=== PATIENT | female | born 1970 | race Caucasian/White ===

== ENCOUNTER 2021-07-04 10:27 | Outpatient (CLI) | payer OTHER, SELFPAY ==
[2021-07-04 20:05] LABS: Basophils Percent Auto 0.5 % (0.2-1.2); Eosinophils Absolute Auto 0.2 K/mm3 (0-0.3); Eosinophils Percent Auto 2.6 % (0-4.4); Hematocrit 47.6 % (37.0-47.0); Hemoglobin 14.1 g/dL (12.0-15.0); Immature Granulocyte Absolute 0.02 K/mm3 (0.00-0.031); Immature Granulocyte Percent A 0.2 % (0-0.5); Lymphocytes Percent Auto 26.3 % (18.3-44.2); Mean Corpuscular HGB Conc 29.6 g/dl (32-36); Mean Corpuscular Hemoglobin 26.8 pg (26-34); Mean Corpuscular Volume 90.5 fl (80-100); Mean Platelet Volume 11.1 fl (7.4-10.4); Monocytes Absolute Auto 0.6 K/mm3 (0.1-0.6); Monocytes Percent Auto 6.6 % (2.6-8.5); Neutrophils Absolute Auto 5.6 K/mm3 (1.3-6.7); Neutrophils Percent Auto 63.8 % (45.5-73.1); Platelet Count Result 357 k/mm3 (150-375); Red Blood Count 5.26 M/mm3 (4.2-5.4); Red Cell Distribution Width 14.2 % (11.5-14.5); White Blood Count 8.7 K/mm3 (4.5-10.0)
[2021-07-04 20:14] LABS: Alanine Aminotransferase 24 U/L (4-35); Albumin Level 4.9 g/dL (3.5-5.1); Alkaline Phosphatase 118 U/L (38-126); Anion Gap 13 mmol/L (8-16); Aspartate Amino Transferase 28 U/L (14-36); Bilirubin,Total 0.3 mg/dL (0.2-1.3); Blood Urea Nitrogen 21 mg/dL (7-17); Calcium 10.9 mg/dL (8.4-10.2); Carbon Dioxide 23 mmol/L (22-30); Chloride 102 mmol/L (98-107); Cholesterol 286 mg/dL (0-200); Estimated Glomerular Filt Rate > 60; Glucose 157 mg/dL (65-110); HDL Direct 67 mg/dL; Potassium 4.3 mmol/L (3.4-5.0); Sodium 138 mmol/L (137-145); Triglycerides 240 mg/dL (<150)
[2021-07-04 20:25] LABS: Hemoglobin A1C 9.4 % (<5.7); LDL Cholesterol Direct 173 mg/dL
[2021-07-04 20:30] LABS: Free T4 Free Thyroxine 0.85 ng/mL (0.78-2.19)
[2021-07-04 20:59] LABS: Platelet Estimate Adequate (Adequate); Poikilocytosis 1+ (NORMAL)
[2021-07-10 06:29] LABS: Triiodothyronine T3 Free 2.5 pg/mL (2.3-4.2)
== END 2021-07-04 10:28 | disposition home or self-care (01) ==
LOC: ANHBWCLAB 10:29
PROVIDERS: PCP Family Medicine; Visit Provider Family Medicine
DX: Z00.00 Encounter for general adult medical examination without abnormal findings (principal); E07.9 Disorder of thyroid, unspecified; Z12.89 Encounter for screening for malignant neoplasm of other sites
CPT/HCPCS: 36415; 80053; 80061; 83036; 84439; 84443; 84481; 85025

== ENCOUNTER 2021-08-07 10:22 | Outpatient (CLI) | payer OTHER, SELFPAY ==
[2021-08-07 20:21] LABS: Anion Gap 12 mmol/L (8-16); Blood Urea Nitrogen 17 mg/dL (7-17); Calcium 10.8 mg/dL (8.4-10.2); Carbon Dioxide 22 mmol/L (22-30); Chloride 107 mmol/L (98-107); Estimated Glomerular Filt Rate > 60; Glucose 129 mg/dL (65-110); Potassium 4.7 mmol/L (3.4-5.0); Sodium 141 mmol/L (137-145)
[2021-08-07 20:29] LABS: Hemoglobin A1C 7.8 % (<5.7)
[2021-08-16 08:55] LABS: Parathyroid Hormone Related Pr 13
== END 2021-08-07 10:23 | disposition home or self-care (01) ==
LOC: ANHBWCLAB 10:23
PROVIDERS: PCP Family Medicine; Visit Provider Family Medicine
DX: E83.52 Hypercalcemia (principal)
CPT/HCPCS: 36415; 80048; 83036; 83519

== ENCOUNTER 2021-08-30 14:41 | Outpatient (CLI) | payer OTHER, SELFPAY ==
[2021-08-30 19:58] LABS: Anion Gap 10 mmol/L (8-16); Blood Urea Nitrogen 21 mg/dL (7-17); Calcium 11.1 mg/dL (8.4-10.2); Carbon Dioxide 23 mmol/L (22-30); Chloride 109 mmol/L (98-107); Estimated Glomerular Filt Rate > 60; Glucose 144 mg/dL (65-110); Potassium 4.3 mmol/L (3.4-5.0); Sodium 142 mmol/L (137-145)
== END 2021-08-30 14:42 | disposition home or self-care (01) ==
PROVIDERS: PCP Family Medicine; Visit Provider Family Medicine
DX: E83.52 Hypercalcemia (principal)
CPT/HCPCS: 36415; 80048; 83036

== ENCOUNTER 2022-01-07 15:28 | Emergency (ER) | payer OTHER, SELFPAY ==
[2022-01-07 15:42] VITALS: BP 132/81; PULSE 92; RESP 17; TEMP 37.3; O2SAT 99
--- NOTE | 2022-01-07 16:01 | ED.ABDPAIN ---
HPI - Abdominal Pain General Chief Complaint: Abdominal Pain Stated Complaint: abd pain Time Seen by Provider: 01/07/22 15:49 Source: patient Mode of arrival: ambulatory Limitations: no limitations History of Present Illness HPI narrative: Patient is a 51-year-old female complaining of epigastric pain, burning, was 9 out of 10, now resolved started approximately 1 hour prior to arrival. Patient denies any chest pain, shortness of breath, nausea, vomiting, diaphoresis, fever or chills. Related Data Home Medications Medication Instructions Recorded Confirmed acyclovir 400 mg tablet 400 mg PO DAILY 07/04/21 10/26/21 drospirenone (contraceptive) 4 mg 4 mg PO DAILY 07/04/21 10/26/21 (28) tablet Allergies Allergy/AdvReac Type Severity Reaction Status Date / Time metformin AdvReac Gastrointestinal Verified 01/07/22 16:31 Upset Review of Systems Review of Systems: All systems reviewed & are unremarkable except as noted in HPI and below Constitutional: Constitutional: Denies body ache(s), Denies chills, Denies excessive sweating, Denies fatigue, Denies fever(s), Denies headache(s), Denies lethargy, Denies malaise, Denies weakness and Denies weight loss Eyes: Eyes: Denies blurry vision, Denies change in vision and Denies loss of vision ENT: Denies dizziness, Denies ear discharge, Denies headache(s), Denies lip swelling, Denies epistaxis, Denies nasal congestion, Denies neck pain, Denies throat swelling and Denies tongue swelling Cardiovascular: Cardiovascular: Denies chest pain, Denies chest pain at rest, Denies chest pain with activity, Denies diaphoresis, Denies rapid heart rate, Denies edema, Denies irregular heart rhythm, Denies lightheadedness, Denies palpitations, Denies dyspnea and Denies dyspnea on exertion Respiratory: Respiratory: Denies chest congestion, Denies cough, Denies hemoptysis, Denies dyspnea and Denies dyspnea on exertion Gastrointestinal: Gastrointestinal: Denies melena, Denies hematochezia, Denies diarrhea, Denies nausea, Denies vomiting and Denies hematemesis Musculoskeletal: Musculoskeletal: Denies abnormal gait, Denies deformity, Denies joint swelling, Denies limited range of motion, Denies neck pain and Denies numbness Neurologic: Denies Abnormal speech present, Denies abnormal gait, Denies confusion, Denies dizziness, Denies headache(s), Denies focal weakness, Denies loss of vision, Denies numbness, Denies Other visual disturbances, Denies Sensory deficit (Neuro) and Denies weakness Psychiatric: Psychiatric: Denies confusion, Denies depression, Denies auditory hallucinations, Denies homicidal ideation and Denies suicidal ideation Endocrine: Endocrine: Denies cold intolerance, Denies excessive sweating, Denies fatigue, Denies heat intolerance and Denies palpitations Hematologic/Lymphatic: Hematologic/Lymphatic: Denies easy bleeding and Denies easy bruising Allergic/Immunologic: Allergic/Immunologic: Denies lip swelling, Denies throat swelling and Denies tongue swelling PMFSH Past Medical History Medical History Diabetes Hyperlipidemia Thyroid disorder Family History Family History Father Hypertension Mother Thyroid disorder Sibling Anxiety Depression Other Anxiety Depression Grandparent Cancer Grandparent Cancer Social History Social History Smoking packs per day: 2 Smoking cigarettes per day: 40.0 Years smoked: 25 Smoking pack-years: 50.00 Smoking status: Former smoker Tobacco type: e-cigarettes/vaping Smoking end date: 11/24/10 Alcohol intake: never Substance use type: does not use Exam Const: General: cooperative, healthy appearing, comfortable, no acute distress, well developed, alert and awake; No confusion Orientation/consciousness: oriented to person, oriented to place, aleksandra
[2022-01-07] MEDS: FAMOTIDINE 20 MG TABLET 40 MG PO (16:32)
[2022-01-07] MEDS: BELLADONNA ALK/PHENOB ELIX 10 ML, MAG HYDROX/ALUMINUM HYD/SIMETH 30 ML, LIDOCAINE HCL 2... PO (16:33)
[2022-01-07 16:50] LABS: Basophils Percent Auto 0.3 % (0.2-1.2); Eosinophils Absolute Auto 0.2 K/mm3 (0-0.3); Eosinophils Percent Auto 2.2 % (0-4.4); Hematocrit 41.8 % (37.0-47.0); Hemoglobin 13.6 g/dL (12.0-15.0); Immature Granulocyte Absolute 0.02 K/mm3 (0.00-0.031); Immature Granulocyte Percent A 0.3 % (0-0.5); Lymphocytes Absolute Auto 1.81 K/mm3 (0.9-3.2); Mean Corpuscular HGB Conc 32.5 g/dl (32-36); Mean Corpuscular Hemoglobin 27.6 pg (26-34); Mean Platelet Volume 10.1 fl (7.4-10.4); Monocytes Absolute Auto 0.6 K/mm3 (0.1-0.6); Monocytes Percent Auto 7.7 % (2.6-8.5); Neutrophils Absolute Auto 4.7 K/mm3 (1.3-6.7); Neutrophils Percent Auto 64.5 % (45.5-73.1); Platelet Count Result 334 k/mm3 (150-375); Red Blood Count 4.92 M/mm3 (4.2-5.4); Red Cell Distribution Width 13.5 % (11.5-14.5); White Blood Count 7.2 K/mm3 (4.5-10.0)
--- NOTE | 2022-01-07 16:57 | ECG_ITS ---
Measurements Intervals [place] Rate: 68 P: 31 VT: 161 QRS: 0 QRSD: 75 T: 40 QT: 394 QTc: 420 Interpretive Statements SINUS RHYTHM CANNOT RULE OUT SEPTAL INFARCT, AGE INDETERMINATE ABNORMAL ECG Electronically Signed On 01-07-2022 20:14:25 PARA EDUCATOR by Evens Alexander D.O.
[2022-01-07 17:10] LABS: Alanine Aminotransferase 84 U/L (4-35); Albumin Level 4.4 g/dL (3.5-5.1); Alkaline Phosphatase 128 U/L (38-126); Anion Gap 11 mmol/L (8-16); Aspartate Amino Transferase 141 U/L (14-36); Bilirubin,Total 0.3 mg/dL (0.2-1.3); Blood Urea Nitrogen 14 mg/dL (7-17); Calcium 9.5 mg/dL (8.4-10.2); Carbon Dioxide 21 mmol/L (22-30); Chloride 110 mmol/L (98-107); Estimated CRCL calculation 68 ml/min; Estimated Glomerular Filt Rate > 60; Glucose 128 mg/dL (65-110); Lipase 121 U/L (23-300); Potassium 3.8 mmol/L (3.4-5.0); Sodium 142 mmol/L (137-145)
== END 2022-01-07 17:55 | disposition home or self-care (01) ==
LOC: ANHED 16:55
PROVIDERS: Emergency Provider Emergency Medicine; PCP Family Medicine
DX: K29.00 Acute gastritis without bleeding (principal); E11.9 Type 2 diabetes mellitus without complications; E78.5 Hyperlipidemia, unspecified; E07.9 Disorder of thyroid, unspecified; Z87.891 Personal history of nicotine dependence; R94.31 Abnormal electrocardiogram [ECG] [EKG]; Z79.899 Other long term (current) drug therapy
CPT/HCPCS: 36415; 80053; 81025; 83690; 85025; 93005; 99283; A9270

== ENCOUNTER 2022-01-25 13:49 | Outpatient (CLI) | payer OTHER, SELFPAY ==
[2022-01-25 19:09] LABS: Alanine Aminotransferase 34 U/L (4-35); Albumin Level 4.4 g/dL (3.5-5.1); Alkaline Phosphatase 113 U/L (38-126); Anion Gap 11 mmol/L (8-16); Aspartate Amino Transferase 28 U/L (14-36); Bilirubin,Total 0.3 mg/dL (0.2-1.3); Blood Urea Nitrogen 20 mg/dL (7-17); Calcium 9.9 mg/dL (8.4-10.2); Carbon Dioxide 23 mmol/L (22-30); Chloride 106 mmol/L (98-107); Estimated Glomerular Filt Rate > 60; Glucose 164 mg/dL (65-110); Potassium 4.7 mmol/L (3.4-5.0); Sodium 140 mmol/L (137-145)
[2022-01-25 19:14] LABS: Hemoglobin A1C 6.2 % (<5.7)
== END 2022-01-25 13:50 | disposition home or self-care (01) ==
LOC: ANHBWCLAB 13:50
PROVIDERS: PCP Family Medicine; Visit Provider Family Medicine
DX: E11.9 Type 2 diabetes mellitus without complications (principal); E83.52 Hypercalcemia; R74.8 Abnormal levels of other serum enzymes
CPT/HCPCS: 36415; 80048; 80076; 83036

== ENCOUNTER 2022-01-30 15:00 | Outpatient (CLI) | payer OTHER, SELFPAY ==
[2022-02-02 21:41] LABS: H pylori Ag Stool Not Detected (Not Detected)
== END 2022-01-30 15:01 | disposition home or self-care (01) ==
PROVIDERS: PCP Family Medicine; Visit Provider Family Medicine
DX: K29.00 Acute gastritis without bleeding (principal); R14.0 Abdominal distension (gaseous)
CPT/HCPCS: 87338

== ENCOUNTER 2022-04-12 07:49 | Outpatient (CLI) | payer OTHER, SELFPAY ==
--- NOTE | 2022-04-23 10:18 | WPDSLEEPSTUD ---
Sleep Study Date of Study: 04/12/22 Ordering Provider: ALEXIA Mcclure Interpreting Physician: Jessi Jo MD Sleep Study Type: CPAP Titration Height: 1.52 m Weight: 61.689 kg Body Mass Index: 26.5 Neck Circumference (inches): 12.5 [place]: 9 Reason for Sleep Study * 07/31/21 - HST through [facility] - mild, positional sleep apnea with RDI of 7.4/hr. Trial APAP or MAD recommended. She has been on APAP Without adequate response, is now here for CPAP Titration. Sleep History Le Mas is a 52 year old female with excessive daytime sleepiness. She has a history of sleep apnea diagnosed on a home sleep test on July 31, 2021 with an AHI of 7.4. She was treated with auto PAP 5-20 cm without good response. She was switched to a Christal CPAP, still had extremely low compliance due to inability to tolerate the pressure. She preferred the nasal pillows however the pressure was too high. She is here for a CPAP titration to get an optimal pressure. She has a very fragmented sleep schedule that likely contributes to her sleep disturbances. 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 She then starts her day but feels tired all day. Takes a nap before noon for at least an hour, and often takes a 2nd nap around 3pm, also at least an hour. Denies morning headaches or nausea. Denies night time SOB/cough. Denies dozing off while driving, while in public or while talking to someone. Denies loss of muscle tone with strong emotion. Denies daytime SOB, coughing, wheezing, chest pain or extremity swelling. She reports an [place] score of 3 today. [facility] Past Medical History Medical History FHx: cholecystectomy GERD (gastroesophageal reflux disease) Hyperlipidemia TERENCE (obstructive sleep apnea) Thyroid disorder Type 2 diabetes mellitus Family History Family History Father Hypertension Mother Thyroid disorder Sibling Anxiety Depression Other Anxiety Depression Grandparent Cancer Grandparent Cancer Social History Social History Smoking packs per day: 2 Smoking cigarettes per day: 40.0 Years smoked: 25 Smoking pack-years: 50.00 Smoking status: Current some day smoker (vapes) Tobacco type: e-cigarettes/vaping Smoking end date: 11/24/10 Alcohol intake: never Substance use type: does not use Medications Home Medications Medication Instructions Recorded Confirmed Type blood sugar diagnostic (OneTouch #100 ea 07/04/21 03/25/22 Rx Ultra Test) fenofibrate 160 mg tablet 160 mg PO DAILY #90 tabs 07/04/21 03/25/22 Rx lancets 30 gauge (OneTouch Delica #100 ea 07/04/21 03/25/22 Rx Lancets) drospirenone (contraceptive) 4 mg 4 mg PO DAILY #28 tabs 01/08/22 03/25/22 Rx (28) tablet (Slynd) liraglutide 0.6 mg/0.1 mL (18 mg/3 1.2 mg (0.2 mL) subcut DAILY #9 mL 02/01/22 03/25/22 Rx mL) subcutaneous pen injector (Victoza 3-Chris) dicyclomine 10 mg capsule 10 mg PO BID PRN abdominal 02/05/22 03/25/22 Rx cramping #30 caps pen needle, diabetic 32 gauge x #100 ea 02/05/22 03/25/22 Rx 1/4 (Novofine 32) eszopiclone 2 mg tablet (Lunesta) 2 mg PO QHS #1 tablet 03/06/22 Rx pantoprazole 40 mg tablet,delayed 40 mg PO QAM 8 weeks #56 tabs 03/25/22 03/25/22 Rx release Sleep Procedure This test was performed using the [employer] SleepiOpener multiple channel system including EOG, EEG, submental EMG, EKG, nasal and oral airflow using thermistors and nasal pressure sensors, chest and abdominal belts for body position data, and pulse oximetry. Video monitoring was also performed. The study was sc
[2022-04-23 13:04] VITALS: BMI 26.5
== END 2022-04-13 06:53 | disposition home or self-care (01) ==
LOC: ANHCSM 07:50
PROVIDERS: PCP Family Medicine; Visit Provider Physician Assistant
DX: G47.33 Obstructive sleep apnea (adult) (pediatric) (principal)
CPT/HCPCS: 95811

== ENCOUNTER 2022-07-02 12:09 | Outpatient (CLI) | payer OTHER, SELFPAY ==
[2022-07-02 19:15] LABS: Alanine Aminotransferase 36 U/L (6-35); Albumin Level 4.9 g/dL (3.5-5.1); Alkaline Phosphatase 106 U/L (38-126); Aspartate Amino Transferase 57 U/L (14-36); Bilirubin,Total 0.4 mg/dL (0.2-1.3)
[2022-07-02 19:55] LABS: Creatinine Urine 144.1 mg/dL
[2022-07-02 20:02] LABS: MALB Creatinine Ratio 12.4 mg/g (0-30); Microalbumin Urine Random 17.9 mg/L (0-16.7)
[2022-07-02 20:24] LABS: Vitamin D 25 Hydroxy 73.5 ng/mL
[2022-07-02 20:34] LABS: Hemoglobin A1C 6.8 % (<5.7)
== END 2022-07-02 12:10 | disposition home or self-care (01) ==
LOC: ANHBWCLAB 12:10
PROVIDERS: PCP Family Medicine; Visit Provider Family Medicine
DX: R74.8 Abnormal levels of other serum enzymes (principal); E55.9 Vitamin D deficiency, unspecified; E11.9 Type 2 diabetes mellitus without complications
CPT/HCPCS: 36415; 80076; 82043; 82306; 83036

== ENCOUNTER 2022-08-27 11:24 | Outpatient (CLI) | payer OTHER, SELFPAY ==
[2022-08-27 12:17] LABS: Anion Gap 11 mmol/L (8-16); Blood Urea Nitrogen 16 mg/dL (7-17); Calcium 9.4 mg/dL (8.4-10.2); Carbon Dioxide 26 mmol/L (22-30); Chloride 105 mmol/L (98-107); Estimated Glomerular Filt Rate > 60; Glucose 178 mg/dL (65-110); Potassium 3.9 mmol/L (3.4-5.0); Sodium 142 mmol/L (137-145)
== END 2022-08-27 11:25 | disposition home or self-care (01) ==
LOC: ANHSURGERY 11:29
PROVIDERS: Anesthesiology; PCP Family Medicine; Visit Provider Otolaryngology
DX: Z01.818 Encounter for other preprocedural examination (principal); E11.9 Type 2 diabetes mellitus without complications
CPT/HCPCS: 36415; 80048

== ENCOUNTER 2022-08-30 00:50 | Day surgery (SDC) | payer OTHER, SELFPAY ==
[2022-08-22 16:37] VITALS: BMI 26.7
--- NOTE | 2022-08-22 17:11 | PC.NURSE ---
Report to the Outpatient Waiting Room, entrance under the green pavilion located off [facility], at time 1030 on date 08/30/22. OR Time: 1230. Time changes happen often and if your time is changed the preop area will call you the afternoon before. - You and your visitor will be asked to self-screen and do not enter if you have any COVID symptoms. - Only one visitor and NO children visitors are allowed at this time. - The patient visitor is requested to leave or wait in car when not with patient due to restrictions. - A mask is required within the hospital. Patients may have clear liquids (water, carbonated beverages, clear teas, apple juice) until 3 hours prior to surgery with a maximum of 20 ounces 0930. - No food from midnight until time of surgery - Infants may have breast milk until 4 hours before surgery, infant formula 6 hours prior to surgery. - Children will be allowed to drink immediately following surgery. If applicable, please bring a bottle or sippy cup to assist with drinking. Juice, water, soda, and popsicles are readily available. For infants on formula, please bring formula the day of surgery. Pacifiers are allowed. Take the following medications with a SIP of water the morning of surgery: acyclovir, fenofibrate, flonase Medications to discontinue per physician lisinopril, pantoprazole Date to take last dose 08/29/22 Please no make-up, nail romansh, hairspray, perfume, deodorant, or body powder the day of surgery. No jewelry (including any body piercings) or valuables the day of surgery, leave them at home. Please take a shower or bath the night before, or the morning of, surgery with an antibacterial soap. Wear comfortable, loose fitting clothing. Children are encouraged to wear pajamas. - Jewelry must be removed prior to entering the operating room. Rings and piercings that are not removed may be cut off. - The hospital will not accept responsibility for valuables. - Please leave all valuables, including medications, at home the day of surgery. If you are going home after surgery, a licensed corrugated fastener driver must drive you home. - NO public transportation without another adult. - We recommend that an adult stay with you for 24 hours following discharge. - We also recommend that you do not drive, make important decision, drink alcoholic beverages, or take any drugs that were not prescribed by your health care provider for at least 24 hours after your discharge time. For Pediatric surgeries, we recommend two adults accompany the child home (only one inside the building at this time). Follow any additional instructions given to you from your surgeon. If you or anyone in your household have experienced Covid symptoms in the past week, please notify your surgeon or the nurse liaison at the phone number below for possible testing. Telephone instructions given to Le Mas and asked if any additional questions and then verbalized understanding. Patient advised to call surgeon office or pre surgery nurse liaison [phone] if any additional questions.
--- NOTE | 2022-08-29 19:28 | PM.IMHP ---
H&P: HPI History of Present Illness Date/Time: 08/29/22 19:28 Chief Complaint: Nasal obstruction nasal congestion nasal scar tissue turbinate hypertrophy oral cavity lesion [facility] Past Medical History Medical History FHx: cholecystectomy GERD (gastroesophageal reflux disease) Hyperlipidemia TERENCE (obstructive sleep apnea) Thyroid disorder Type 2 diabetes mellitus Family History Family History Father Hypertension Cancer Mother Thyroid disorder Sibling Anxiety Depression Other Anxiety Depression Grandparent Cancer Grandparent Cancer Other Depression Social History Social History Smoking packs per day: 2 Smoking cigarettes per day: 40.0 Years smoked: 30 Smoking pack-years: 60.00 Smoking status: Former smoker Tobacco type: e-cigarettes/vaping Smoking end date: 11/24/13 Alcohol intake: never Substance use type: does not use Last use: 2013 Spiritual care concerns: No Meds Home Medications and Allergies Home Medications Medication Instructions Recorded Confirmed Type blood sugar diagnostic (RoomtagTouch #100 ea 07/04/21 08/22/22 Rx Ultra Test strips) lancets 30 gauge (RoomtagTouch Delica #100 ea 07/04/21 08/22/22 Rx Lancets) fenofibrate 160 mg tablet 160 mg PO DAILY #90 tabs 07/01/22 08/22/22 Rx lisinopril 2.5 mg tablet 2.5 mg PO DAILY #90 tabs 08/04/22 08/22/22 Rx acyclovir 400 mg tablet 400 mg PO DAILY 08/07/22 08/22/22 History fluticasone propionate 50 2 spray intranasal BID #16 mL 08/07/22 08/22/22 Rx mcg/actuation nasal spray,suspension (Flonase Allergy Relief) pantoprazole 20 mg tablet,delayed 20 mg PO DAILY 08/22/22 08/22/22 History release (Protonix) dulaglutide 1.5 mg/0.5 mL 1.5 mg (0.5 mL) subcut WEEKLY #2 mL 08/27/22 Rx subcutaneous pen injector (Trulicity) Allergies Allergy/AdvReac Type Severity Reaction Status Date / Time No Known Allergies Allergy Verified 08/22/22 16:33 Exam Narrative: abnormal appearing reny palatini us nasal scar tissue turbinate hypertrophy Assessment and Plan Assessment and plan (1) Rhinitis medicamentosa: Code(s): J31.0 - Chronic rhinitis; T48.5X5A - Adverse effect of other hguq-ldgexi-wicm drugs, initial encounter Status: Acute Assessment and Plan: plan operating room nasal endoscopy lysis of adhesions turbinate outfracture will need splints / sinus stray/endoscope. Biopsy of oral cavity lesion will need soft tissue tray /mouthgag. 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
[2022-08-30] VITALS (9 sets, daily range): BP systolic 120–153; BP diastolic 66–84; PULSE 60–79; RESP 12–20; TEMP 36.4–37; O2SAT 96–100
--- NOTE | 2022-08-30 07:19 | WPDHPUPDATE1 ---
History and Physical Update Update Date/Time: 08/30/22 07:19 History and Physical has been reviewed, including an updated exam of the patient. There are NO changes in the patient's condition. Risks, benefits, and alternatives have been discussed and questions answered. Patient agrees to proceed with procedure.
[2022-08-30] MEDS: ACETAMINOPHEN 500 MG TABLET 1000 MG PO (11:22)
[2022-08-30] MEDS: LACTATED RINGERS 1,000 ML 30 ML IV CONT (11:30)
[2022-08-30 11:34] LABS: Glucose Point of Care 111 mg/dl (65-105)
--- NOTE | 2022-08-30 11:37 | WPDANESEPPF ---
Anes - Initial Pre Proc Eval Procedure: Operation Date: 08/30/22 12:30 Proposed Procedures p Bilateral Nasal Endoscopy with Lysis of Nasal Adhesions, Bilateral Inferior Turbinectomy with Outfracture - Melvin Baez MD Date/Time: 08/30/22 11:37 Surgeon: Melvin Baez MD Pre Op Diagnosis: turbinate hypertrophy, oral cavity lesion Patient Data Age: 52 Gender: F Height: 1.52 m Weight: 60.95 kg Last Vital Signs Temp 36.4 C 08/30/22 10:39 Pulse 79 08/30/22 10:39 Resp 20 08/30/22 10:39 BP 122/66 08/30/22 10:39 Pulse Ox 100 08/30/22 10:39 O2 Del Method Room Air 08/30/22 10:39 Allergies Allergy/AdvReac Type Severity Reaction Status Date / Time No Known Allergies Allergy Verified 08/30/22 11:15 Home Medications Medication Instructions Recorded Confirmed Type blood sugar diagnostic ([employer] OrganizationTouch #100 ea 07/04/21 08/22/22 Rx Ultra Test strips) lancets 30 gauge (OneTouch Delica #100 ea 07/04/21 08/22/22 Rx Lancets) fenofibrate 160 mg tablet 160 mg PO DAILY #90 tabs 07/01/22 08/22/22 Rx lisinopril 2.5 mg tablet 2.5 mg PO DAILY #90 tabs 08/04/22 08/22/22 Rx acyclovir 400 mg tablet 400 mg PO DAILY 08/07/22 08/22/22 History fluticasone propionate 50 2 spray intranasal BID #16 mL 08/07/22 08/22/22 Rx mcg/actuation nasal spray,suspension (Flonase Allergy Relief) pantoprazole 20 mg tablet,delayed 20 mg PO DAILY 08/22/22 08/22/22 History release (Protonix) dulaglutide 1.5 mg/0.5 mL 1.5 mg (0.5 mL) subcut WEEKLY #2 mL 08/27/22 08/30/22 Rx subcutaneous pen injector (Trulicity) Laboratory Tests 08/30/22 11:31 POC Capillary Glucose 111 mg/dl H mg/dl (65-105) Patient hx anesthesia problems: post op nausea/vomiting Family hx anesthesia problems: none Results Review: All pre-operative results and documents have been reviewed as part of the pre-operative evaluation. [facility] Past Medical History Medical History FHx: cholecystectomy GERD (gastroesophageal reflux disease) Hyperlipidemia TERENCE (obstructive sleep apnea) Thyroid disorder Type 2 diabetes mellitus Family History Family History Father Hypertension Cancer Mother Thyroid disorder Sibling Anxiety Depression Other Anxiety Depression Grandparent Cancer Grandparent Cancer Other Depression Social History Social History Smoking packs per day: 2 Smoking cigarettes per day: 40.0 Years smoked: 30 Smoking pack-years: 60.00 Smoking status: Former smoker Tobacco type: e-cigarettes/vaping Smoking end date: 11/24/13 Alcohol intake: never Substance use type: does not use Last use: 2013 Living arrangements: with family Spiritual care concerns: No Anes - Eval Final PreProcedure Day of Procedure 08/30/22 11:37 Patient weight: overweight Heart: regular rate and rhythm Lungs: decreased breath sounds Airway: Mallampati scale class III Neurological: alert and oriented Last oral intake: >/= 8 hours ASA classification: III Emergent: no Anesthetic plan: proceed Anesthesia type and monitoring: general ETT and standard monitoring Results Review: All pre-operative results and documents have been reviewed as part of the pre-operative evaluation. Informed Consent: The patient's anesthetic plan and its attendant risks and benefits were discussed with the patient/family/POA. Questions were solicited and answers provided to the satisfaction of the patient/family/POA.
[2022-08-30] MEDS: ceFAZolin 2 GM/D5W 50 ML 2 GM/50 ML BAG IVPB (12:57)
[2022-08-30] MEDS: OXYMETAZOLINE HCL 0.05% NAS 15 ML BTL (*BKC) 1 SPRAY NASAL (13:20)
[2022-08-30] MEDS: MUPIROCIN 2% OINT 22 GM TUBE 1 APPLIC TOPICAL (13:28)
[2022-08-30 13:54] LABS: Glucose Point of Care 112 mg/dl (65-105)
[2022-08-30] MEDS: fentaNYL CITRATE INJ (*CRX) 100 MCG/2 ML VIAL 25 MCG IV PUSH ×4 (14:02→14:27)
[2022-08-30] MEDS: SCOPOLAMINE 1.5 MG PATCH TRANSDERM (14:35)
--- NOTE | 2022-08-30 15:42 | W.PM.PROC2 ---
Procedure Note - Detailed Date of Procedure 08/30/22 Pre-op Diagnosis turbinate hypertrophy, oral cavity lesion , nasal cavity scar tissue, septal deviation Post-op Diagnosis Same Procedure Performed endoscopic nasal endoscopy, endoscopic lysis of adhesions, inferior turbinate submucosal resection with outfracture, biopsy all cap Surgeon Melvin Baez MD Anesthesia General Indications see above Findings oral cavity lesion likely torus palatinus mucosa overlying biopsied normal appearing otherwise, significant scar tissue in the right nasal passage completely open turbinate well reduced there is right septal deviation which is fairly obstructive left-sided moderate scar tissue removed turbinate free the turbinates are free bilaterally Description of Procedure patient identified consent verified. Patient brought operating time-out performed. General anesthesia induced endotracheal tube secured the. Patient prepped draped rotated Afrin-soaked pledgets placed around the scar tissue in the nasal cavity 2nd time-out performed. Oral cavity opened using side-biting mouth gag lesion examined. Appears to be torus palatinus. Mucosa overlying small amount about 3 x 1 mm was removed for pathologic analysis. Bovie suction electrocautery at a setting of utilized to stop scant bleeding. Endoscope then utilized to the bilateral nasal passages with findings listed above. All the scar tissue was lysed with a [place]. Turbinates were outfractured and reduced in the submucosal plane large obstructing mulberry tips were cauterized. Simpson splints were then placed the left being trimmed and sutured anteriorly using 3-0 mattressed nylon suture. Blood loss about 10 cc. I performed all dictated portions of the procedure. There were no complications. Care the patient given Anesthesiology. Patient taken to PACU Estimated Blood Loss 10 Drains No Packing No Pathology Yes Complications No immediate complications Condition Stable Disposition PACU
== END 2022-08-30 15:32 | disposition home or self-care (01) ==
PROVIDERS: PCP Family Medicine; Visit Provider Otolaryngology
PROC: (CPT 30140; principal; 2022-08-30 12:30)
PROC: (CPT 40810; 2022-08-30 12:30)
DX: R09.81 Nasal congestion (principal); J34.3 Hypertrophy of nasal turbinates; K13.70 Unspecified lesions of oral mucosa; K21.9 Gastro-esophageal reflux disease without esophagitis; E78.5 Hyperlipidemia, unspecified; G47.33 Obstructive sleep apnea (adult) (pediatric); E11.9 Type 2 diabetes mellitus without complications; Z87.891 Personal history of nicotine dependence; M27.0 Developmental disorders of jaws; J34.89 Other specified disorders of nose and nasal sinuses; J31.0 Chronic rhinitis
CPT/HCPCS: 30140; 31237; 82948; 88304; A9270; J0330; J0690; J1100; J2250; J2405; J2704; J3010; J7120

== ENCOUNTER 2022-10-21 10:28 | Outpatient (CLI) | payer OTHER, SELFPAY ==
--- NOTE | ~2022-10-21 | MM_ITS ---
EXAMINATION: MM screening kaylyn BI w jazmyn HISTORY: Screening mammogram TECHNIQUE: Craniocaudal and mediolateral oblique 3-D tomosynthesis images were obtained and synthetic 2-D images were generated. CAD analysis was submitted and interpreted. COMPARISON: No prior mammogram is available for comparison at this institution. BREAST PARENCHYMAL COMPOSITION: There are scattered areas of fibroglandular density. FINDINGS: RIGHT BREAST: There is a mass in the middle third of the central breast. LEFT BREAST: No suspicious mass, calcification, or architectural distortion are identified to suggest malignancy. IMPRESSION: 1. Right breast mass which may represent the patient's baseline however no comparison is currently av ailable. 2. Comparison with prior mammograms is necessary. BI-RADS Category 0: Incomplete: Needs comparison with prior mammograms. Reviewed, dictated and finalized at location A. MILL OPERATOR IMPRESSION: 1. Right breast mass which may represent the patient's baseline however no comp arison is currently available. 2. Comparison with prior mammograms is necessary. BI-RADS Category 0: Incomplete: Needs comparison with prior mammograms.
== END 2022-10-21 10:29 | disposition home or self-care (01) ==
PROVIDERS: PCP Family Medicine; Visit Provider Nurse Practitioner
DX: Z12.31 Encounter for screening mammogram for malignant neoplasm of breast (principal); N63.41 Unspecified lump in right breast, subareolar
CPT/HCPCS: 77063; 77067

== ENCOUNTER 2023-01-14 13:19 | Outpatient (CLI) | payer OTHER, SELFPAY ==
[2023-01-14 18:51] LABS: Hematocrit 42.9 % (37.0-47.0); Hemoglobin 13.6 g/dL (12.0-15.0); Mean Corpuscular HGB Conc 31.7 g/dl (32-36); Mean Corpuscular Hemoglobin 26.6 pg (26-34); Mean Corpuscular Volume 83.8 fl (80-100); Mean Platelet Volume 10.5 fl (7.4-10.4); Platelet Count Result 409 k/mm3 (150-375); Red Blood Count 5.12 M/mm3 (4.2-5.4); Red Cell Distribution Width 13.8 % (11.5-14.5); White Blood Count 6.9 K/mm3 (4.5-10.0)
[2023-01-14 18:58] LABS: Hemoglobin A1C 6.8 % (<5.7)
[2023-01-14 19:31] LABS: Vitamin D 25 Hydroxy 41.2 ng/mL
[2023-01-14 19:37] LABS: Alanine Aminotransferase 37 U/L (6-35); Albumin Level 4.8 g/dL (3.5-5.1); Alkaline Phosphatase 99 U/L (38-126); Aspartate Amino Transferase 44 U/L (14-36); Bilirubin,Total 0.5 mg/dL (0.2-1.3); Cholesterol 186 mg/dL (0-200); HDL Direct 43 mg/dL; Triglycerides 187 mg/dL (<150)
[2023-01-14 19:48] LABS: LDL Cholesterol Direct 106 mg/dL
[2023-01-14 19:52] LABS: Hepatitis B Surface Antigen Negative (Negative)
[2023-01-14 19:57] LABS: HAV RESULT Negative (Negative); Hepatitis B Core IgM Result Negative (Negative)
[2023-01-14 20:09] LABS: Hepatitis C Virus Antibody Negative (Negative)
[2023-01-14 20:35] LABS: Creatinine Urine 107.6 mg/dL
[2023-01-14 20:43] LABS: MALB Creatinine Ratio 12.1 mg/g (0-30)
== END 2023-01-14 13:20 | disposition home or self-care (01) ==
PROVIDERS: PCP Family Medicine; Visit Provider Family Medicine
DX: E55.9 Vitamin D deficiency, unspecified (principal); G47.33 Obstructive sleep apnea (adult) (pediatric); E11.9 Type 2 diabetes mellitus without complications; R53.83 Other fatigue; R74.8 Abnormal levels of other serum enzymes
CPT/HCPCS: 36415; 80061; 80074; 80076; 82043; 82306; 83036; 85027

== ENCOUNTER 2023-07-15 12:02 | Outpatient (CLI) | payer OTHER, SELFPAY ==
[2023-07-15 19:05] LABS: Hematocrit 45.9 % (37.0-47.0); Hemoglobin 14.1 g/dL (12.0-15.0); Mean Corpuscular HGB Conc 30.7 g/dl (32-36); Mean Corpuscular Hemoglobin 26.8 pg (26-34); Mean Corpuscular Volume 87.3 fl (80-100); Mean Platelet Volume 11.4 fl (7.4-10.4); Platelet Count Result 341 k/mm3 (150-375); Red Blood Count 5.26 M/mm3 (4.2-5.4); Red Cell Distribution Width 14.6 % (11.5-14.5); White Blood Count 5.7 K/mm3 (4.5-10.0)
[2023-07-15 19:33] LABS: Vitamin D 25 Hydroxy 39.3 ng/mL
[2023-07-15 19:37] LABS: Alanine Aminotransferase 37 U/L (6-35); Albumin Level 4.7 g/dL (3.5-5.1); Alkaline Phosphatase 71 U/L (38-126); Anion Gap 10 mmol/L (8-16); Aspartate Amino Transferase 59 U/L (14-36); Bilirubin,Total 0.5 mg/dL (0.2-1.3); Blood Urea Nitrogen 17 mg/dL (7-17); Calcium 9.7 mg/dL (8.4-10.2); Carbon Dioxide 27 mmol/L (22-30); Chloride 106 mmol/L (98-107); Estimated Glomerular Filt Rate > 60; Glucose 101 mg/dL (65-110); Potassium 3.8 mmol/L (3.4-5.0); Sodium 143 mmol/L (137-145)
[2023-07-15 19:43] LABS: Creatinine Urine 141.7 mg/dL
[2023-07-15 19:47] LABS: Microalbumin Urine Random 11.3 mg/L (0-16.7)
[2023-07-15 20:08] LABS: Thyroid Stimulating Hormone 0.597 uIU/mL (0.465-4.680)
[2023-07-18 05:46] LABS: FSH 98.3 mIU/mL (***); LH 36.1 mIU/mL (***); Progesterone 0.3 ng/mL (***)
[2023-07-19 10:41] LABS: Testosterone Total 16 ng/dL (2-45)
[2023-07-20 17:32] LABS: Estrogen 79 pg/mL
== END 2023-07-15 12:03 | disposition home or self-care (01) ==
LOC: ANHBWCLAB 12:04
PROVIDERS: PCP Family Medicine; Visit Provider Family Medicine
DX: E07.9 Disorder of thyroid, unspecified (principal); R74.8 Abnormal levels of other serum enzymes; R20.0 Anesthesia of skin; G47.33 Obstructive sleep apnea (adult) (pediatric); E78.5 Hyperlipidemia, unspecified; E11.9 Type 2 diabetes mellitus without complications; E55.9 Vitamin D deficiency, unspecified
CPT/HCPCS: 36415; 80053; 82043; 82306; 82672; 83001; 83002; 83036; 84144; 84403; 84443; 85027

== ENCOUNTER 2024-02-03 11:25 | Outpatient (CLI) | payer OTHER, SELFPAY ==
[2024-02-03 18:48] LABS: Hematocrit 39.8 % (37.0-47.0); Hemoglobin 12.2 g/dL (12.0-15.0); Mean Corpuscular HGB Conc 30.7 g/dl (32-36); Mean Corpuscular Hemoglobin 27.1 pg (26-34); Mean Corpuscular Volume 88.2 fl (80-100); Mean Platelet Volume 11.4 fl (7.4-10.4); Platelet Count Result 283 k/mm3 (150-375); Red Blood Count 4.51 M/mm3 (4.2-5.4); Red Cell Distribution Width 14.7 % (11.5-14.5); White Blood Count 5.7 K/mm3 (4.5-10.0)
[2024-02-03 18:59] LABS: Alanine Aminotransferase 330 U/L (6-35); Albumin Level 4.3 g/dL (3.5-5.1); Alkaline Phosphatase 140 U/L (38-126); Anion Gap 6 mmol/L (8-16); Aspartate Amino Transferase 436 U/L (14-36); Bilirubin,Total 0.6 mg/dL (0.2-1.3); Blood Urea Nitrogen 21 mg/dL (7-17); Calcium 9.7 mg/dL (8.4-10.2); Carbon Dioxide 27 mmol/L (22-30); Chloride 107 mmol/L (98-107); Cholesterol 180 mg/dL (0-200); Estimated Glomerular Filt Rate > 60; Glucose 117 mg/dL (65-110); HDL Direct 73 mg/dL; Potassium 3.8 mmol/L (3.4-5.0); Sodium 140 mmol/L (137-145); Triglycerides 82 mg/dL (<150)
[2024-02-03 19:11] LABS: LDL Cholesterol Direct 87 mg/dL
[2024-02-03 19:28] LABS: Thyroid Stimulating Hormone 0.319 uIU/mL (0.465-4.680)
[2024-02-03 19:49] LABS: Vitamin D 25 Hydroxy 44.9 ng/mL
[2024-02-03 20:07] LABS: Hemoglobin A1C 5.7 % (<5.7)
== END 2024-02-03 11:26 | disposition home or self-care (01) ==
PROVIDERS: PCP Family Medicine; Visit Provider Family Medicine
DX: E78.5 Hyperlipidemia, unspecified (principal); E55.9 Vitamin D deficiency, unspecified; E11.9 Type 2 diabetes mellitus without complications; G47.33 Obstructive sleep apnea (adult) (pediatric); R74.8 Abnormal levels of other serum enzymes
CPT/HCPCS: 36415; 80053; 80061; 82306; 83036; 84443; 85027

== ENCOUNTER 2024-02-04 10:55 | Outpatient (CLI) | payer OTHER, SELFPAY ==
--- NOTE | ~2024-02-04 | US_ITS ---
EXAMINATION: US abdomen limited DATE: 02/04/2024 12:38 INDICATION: Abnormal levels of serum enzymes TECHNIQUE: Multiple grayscale and Doppler ultrasound images of the abdomen were obtained. COMPARISON: None FINDINGS: The pancreatic head and body are normal in appearance. The pancreatic tail is not visualized. Liver has normal echogenicity and contour, with a smooth surface. No liver lesion identified. No intrahepat ic biliary duct dilation suspected. Portal venous flow was seen in the hepatopetal, normal direction and has normal Doppler waveform. Visualized proximal abdominal aorta and inferior vena cava are gabriele l. Gallbladder is not visualized and reportedly surgically absent. The common bile duct measures up t o 13 mm which appears to taper distally with no evident choledocholithiasis. Aorta and inferior vena cava is normal. IMPRESSION: 1. Common bile duct dilated to 13 mm without evident intrahepatic ductal or ductal dilation or choled ocholithiasis likely related to prior cholecystectomy. Reviewed, dictated and finalized at location B. IMPRESSION: 1. Common bile duct dilated to 13 mm without evident intrahepatic ductal or loree bert dilation or choledocholithiasis likely related to prior cholecystectomy.
== END 2024-02-04 10:56 | disposition home or self-care (01) ==
LOC: ANHIMG 10:56
PROVIDERS: PCP Family Medicine; Visit Provider Family Medicine
DX: R74.8 Abnormal levels of other serum enzymes (principal); Z90.49 Acquired absence of other specified parts of digestive tract
CPT/HCPCS: 76705

== ENCOUNTER 2024-02-17 15:13 | Outpatient (CLI) | payer OTHER, SELFPAY ==
[2024-02-17 19:21] LABS: Alanine Aminotransferase 28 U/L (6-35); Albumin Level 4.2 g/dL (3.5-5.1); Alkaline Phosphatase 81 U/L (38-126); Aspartate Amino Transferase 50 U/L (14-36); Bilirubin,Total 0.3 mg/dL (0.2-1.3)
[2024-02-17 19:46] LABS: Thyroid Stimulating Hormone 0.423 uIU/mL (0.465-4.680)
== END 2024-02-17 15:14 | disposition home or self-care (01) ==
PROVIDERS: PCP Family Medicine; Visit Provider Family Medicine
DX: E11.9 Type 2 diabetes mellitus without complications (principal); R74.8 Abnormal levels of other serum enzymes; R79.89 Other specified abnormal findings of blood chemistry
CPT/HCPCS: 36415; 80076; 84443

== ENCOUNTER 2024-05-03 10:09 | Outpatient (CLI) | payer OTHER, SELFPAY ==
[2024-05-03 19:07] LABS: Alanine Aminotransferase 20 U/L (6-35); Albumin Level 4.6 g/dL (3.5-5.1); Alkaline Phosphatase 55 U/L (38-126); Aspartate Amino Transferase 58 U/L (14-36); Bilirubin,Total 0.4 mg/dL (0.2-1.3)
[2024-05-03 19:28] LABS: Thyroid Stimulating Hormone 0.626 uIU/mL (0.465-4.680)
== END 2024-05-03 10:10 | disposition home or self-care (01) ==
LOC: ANHBWCLAB 10:10
PROVIDERS: PCP Nurse Practitioner Adult Health; Visit Provider Family Medicine
DX: R79.89 Other specified abnormal findings of blood chemistry (principal); R74.01 Elevation of levels of liver transaminase levels
CPT/HCPCS: 36415; 80076; 84443

== ENCOUNTER 2024-07-14 08:47 | Outpatient (CLI) | payer OTHER, SELFPAY ==
--- NOTE | ~2024-07-14 | XR_ITS ---
XR abdomen/kub 1V Ordering provider: Ginette Kathleen APRN History: . R14.0 - Abdominal distension (gaseous) . Comparison: None. FINDINGS: BOWEL: Nonobstructive bowel gas pattern. ORGANOMEGALY: None. Status post cholecystectomy. SIGNIFICANT PATHOLOGIC CALCIFICATIONS: None. OTHER: No free air is seen under the diaphragm. IMPRESSION: NO ACUTE ABDOMINAL FINDINGS. Reviewed, dictated and finalized at location A.
[2024-07-14 19:31] LABS: Free T4 Free Thyroxine 1.26 ng/mL (0.78-2.19); Vitamin D 25 Hydroxy 39.2 ng/mL
[2024-07-14 19:41] LABS: Alanine Aminotransferase 29 U/L (6-35); Albumin Level 4.7 g/dL (3.5-5.1); Alkaline Phosphatase 51 U/L (38-126); Anion Gap 10 mmol/L (4-12); Aspartate Amino Transferase 45 U/L (14-36); Bilirubin,Total 0.4 mg/dL (0.2-1.3); Blood Urea Nitrogen 23 mg/dL (7-17); Calcium 9.8 mg/dL (8.4-10.2); Carbon Dioxide 29 mmol/L (22-30); Chloride 102 mmol/L (98-107); Cholesterol 176 mg/dL (0-200); Estimated Glomerular Filt Rate > 60; Glucose 103 mg/dL (65-110); HDL Direct 65 mg/dL; Potassium 4.2 mmol/L (3.4-5.0); Sodium 141 mmol/L (137-145); Triglycerides 75 mg/dL (<150)
[2024-07-14 19:45] LABS: MALB Creatinine Ratio 10.6 mg/g (0-30); Microalbumin Urine Random 12.8 mg/L (0-16.7)
[2024-07-14 19:53] LABS: LDL Cholesterol Direct 87 mg/dL
[2024-07-14 20:04] LABS: Hemoglobin A1C 6.3 % (<5.7)
[2024-07-19 15:28] LABS: Thyroid Peroxidase Antibodies 1 IU/mL (<9)
== END 2024-07-14 08:48 | disposition home or self-care (01) ==
LOC: ANHBWCLAB 08:49
PROVIDERS: PCP Nurse Practitioner Adult Health; Visit Provider Nurse Practitioner Adult Health
DX: R14.0 Abdominal distension (gaseous) (principal); E55.9 Vitamin D deficiency, unspecified; R79.89 Other specified abnormal findings of blood chemistry; E11.9 Type 2 diabetes mellitus without complications
CPT/HCPCS: 36415; 74018; 80053; 80061; 82043; 82306; 82565; 83036; 84439; 84443; 86376

== ENCOUNTER 2024-10-19 14:32 | Outpatient (CLI) | payer OTHER, SELFPAY ==
[2024-10-19 19:25] LABS: Hematocrit 39.1 % (37.0-47.0); Hemoglobin 12.9 g/dL (12.0-15.0); Mean Corpuscular Volume 84.8 fl (80-100); Mean Platelet Volume 11.2 fl (7.4-10.4); Platelet Count Result 339 k/mm3 (150-375); Red Blood Count 4.61 M/mm3 (4.2-5.4); Red Cell Distribution Width 13.5 % (11.5-14.5); White Blood Count 8.4 K/mm3 (4.5-10.0)
[2024-10-19 19:26] LABS: Hemoglobin A1C 6.2 % (<5.7)
[2024-10-19 20:17] LABS: Alanine Aminotransferase 128 U/L (6-35); Albumin Level 4.5 g/dL (3.5-5.1); Alkaline Phosphatase 60 U/L (38-126); Anion Gap 7 mmol/L (4-12); Aspartate Amino Transferase 108 U/L (14-36); Bilirubin,Total 0.5 mg/dL (0.2-1.3); Blood Urea Nitrogen 21 mg/dL (7-17); Calcium 9.8 mg/dL (8.4-10.2); Carbon Dioxide 27 mmol/L (22-30); Chloride 106 mmol/L (98-107); Cholesterol 177 mg/dL (0-200); Estimated Glomerular Filt Rate > 60; Glucose 131 mg/dL (65-110); HDL Direct 66 mg/dL; Potassium 3.9 mmol/L (3.4-5.0); Sodium 140 mmol/L (137-145); Triglycerides 99 mg/dL (<150)
[2024-10-19 20:29] LABS: LDL Cholesterol Direct 82 mg/dL
[2024-10-19 20:47] LABS: Thyroid Stimulating Hormone 0.467 uIU/mL (0.465-4.680)
== END 2024-10-19 14:33 | disposition home or self-care (01) ==
LOC: ANHBWCLAB 14:34
PROVIDERS: PCP Nurse Practitioner Adult Health; Visit Provider Nurse Practitioner Adult Health
DX: R53.83 Other fatigue (principal); R79.89 Other specified abnormal findings of blood chemistry; E11.9 Type 2 diabetes mellitus without complications; E78.5 Hyperlipidemia, unspecified
CPT/HCPCS: 36415; 80053; 80061; 82607; 83036; 84443; 85027

== ENCOUNTER 2024-11-09 12:28 | Outpatient (CLI) | payer OTHER, SELFPAY ==
[2024-11-09 19:53] LABS: Alanine Aminotransferase 25 U/L (6-35); Albumin Level 4.3 g/dL (3.5-5.1); Alkaline Phosphatase 54 U/L (38-126); Aspartate Amino Transferase 64 U/L (14-36); Bilirubin,Total 0.4 mg/dL (0.2-1.3)
== END 2024-11-09 12:29 | disposition home or self-care (01) ==
PROVIDERS: PCP Nurse Practitioner Adult Health; Visit Provider Nurse Practitioner Adult Health
DX: R74.8 Abnormal levels of other serum enzymes (principal)
CPT/HCPCS: 36415; 80076

== ENCOUNTER 2025-01-05 11:26 | Outpatient (CLI) | payer OTHER, SELFPAY ==
--- OUTSIDE RECORDS SUMMARY | 2025-01-05 12:13 | XMS_ITS | Clinical Summary ---
Author Organization [facility] Address [address] [place] [address] Phone Care Team Providers Care Journeyman Pipe Welder Name Role Phone Jay Hickman MD Unavailable [phone] Ginette Kathleen APRN Primary Care Provider [phone] Allergies No known active allergies Medications acyclovir (ZOVIRAX) 400 MG Tablet Take 1 Tab by mouth daily. 6 Active Drospirenone 4 MG Tablet Take by mouth daily. Active fenofibrate 160 MG Tablet Take 160 mg by mouth daily. Active Blood Glucose Monitoring Suppl (ONE TOUCH ULTRA 2) w/Device Kit TEST TWICE DAILY WITH TEST STRIPS 1 Active OneTouch Ultra Strip TEST BLOOD GLUCOSE TWICE DAILY 1 Active Lancets (OneTouch Delica Plus [id number]) [facility] TEST BLOOD SUGAR TWICE DAILY 1 Active glimepiride (AMARYL) 2 MG Tablet Take 1 Tablet by mouth 2 times daily. 60 Tablet 2 1 Active Additional Information Patient taking differently:2 mg Oral 2 TIMES DAILY,Pt taking PRN, Reported on 07/23/2021 Liraglutide (VICTOZA SC) 1.2 mg daily. 1 Active Melatonin 5 MG Capsule Take by mouth nightly. Active pantoprazole (PROTONIX) 40 MG Tablet Delayed Response Take 40 mg by mouth daily. Take 1/2 hour before evening meal Active Multiple Vitamins-[place] als (MULTIVITAMIN PO) Take 1 Tab by mouth daily. 12/30/19 25 Discontin ued(Med List Clean Up) cholestyramine (QUESTRAN) 4 GM Pack Take 1 Packet by mouth 2 times daily (with meals). 180 Packet 3 1 12/30/19 25 Discontin ued(Med List Clean Up) Active Problems Problem Noted Date Diagnosed Date Overactive bladder 09/30/2016 MARTIN (stress urinary incontinence, female) 2015 Encounters Date Type Department Care Team Description 12/30/2024 3:50 PM DINKEY LOCOMOTIVE ENGINEER - 12/30/2024 8:12 PM [facility] Emergency [facility] [address] [place] [address] Lito Camarena MD Furry, Napoleon Ch MD Dizziness Discharge Disposition: Discharged to home or Selfcare 12/30/2024 Travel 10/28/2024 5:59 PM DINKEY LOCOMOTIVE ENGINEER - 10/28/2024 7:54 PM [facility] Emergency [facility] [address] [place] [address] Ruddy Ha PAC Elevated blood pressure reading Discharge Disposition: Discharged to home or Selfcare 10/28/2024 Travel from Last 3 Months Immunizations Immunization Administration Dates Next Due Pneumococcal Vaccine Adult - 23 Valent 1 TDAP Vaccine 10/14/2023 Family History Medical History Relation Name Comments No Known Problems Brother Cancer Father Brain, skin can cer, lungs Elevated Lipids Father Hypertension Father Diabetes Maternal Aunt 1 Diabetes Maternal Aunt 2 No Known Problems Maternal Grandfather Cancer Maternal Grandmother Diabetes Maternal Grandmother Migraines Mother Heart Attack Paternal Grandfather Leukemia/Lymphoma Paternal Grandmother Anxiety disorder Sister Depression Sister Seizures Neg Hx Relation Name Status Comments Brother Alive Father Alive Maternal Aunt 1 Alive Maternal Aunt 2 Maternal Grandfather Maternal Grandmother Mother Alive Paternal Grandfather Paternal Grandmother Sister Alive Social History Tobacco Use Types Packs/Day Years Used Date Smoking Tobacco: Former Cigarettes 2 30 0 01/07/1984 - 01/07/2014 Smokeless Tobacco: Never Tobacco Cessation:Counseling Given: No Alcohol Use Standard Drinks/Week Comments No 0 (1 standard drink = 0.6 oz pur e alcohol) Sexually Active Control Partners Comments Yes Male Comments No Sex and Gender Information Value Date Recorded Sex Assigned at Not on file Legal Sex Female 8:03 PM CDT Gender Identity Not on file Sexual Orientation Not on file 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 Not on file Not on file Last Filed Vital Signs Vital Sign Reading Time Taken Comments Blood Pressure 138/72 12/30/2024 7:51 PM DINKEY LOCOMOTIVE ENGINEER Pulse 72 12/30/2024 2:06 PM DINKEY LOCOMOTIVE ENGINEER Temperature 37.3 C (99.1 F) 12/30/2024 2:06 PM DINKEY LOCOMOTIVE ENGINEER Respiratory Rate 16 12/30/2024 2:06 PM DINKEY LOCOMOTIVE ENGINEER Oxygen Saturation 99% 12/30/2024 2:06 PM DINKEY LOCOMOTIVE ENGINEER Inhaled Oxygen Concentration - - Weight 49.9 kg (110 lb) 12/30/2024 2:06 PM DINKEY LOCOMOTIVE ENGINEER Height 152.4 cm (5') 12/30/2024 2:06 PM DINKEY LOCOMOTIVE ENGINEER Body Mass Index 21.48 12/30/2024 2:06 PM DINKEY LOCOMOTIVE ENGINEER Plan of Treatment Health Maintenance Due Date Last Done Comments Hepatitis B Immunization (1 of 3 - 19+ 3-dose series) 1990 Pap Smear 1992 Cervical Cancer Screening (CCS) 2001 HPV/Cotest 2001 Cologuard 2021 Immunochemical Fecal Occult Blood 2021 Lung Cancer Screening 2021 Pneumococcal Immunization (5 0+ years) (2 of 2 - PCV) 07/04/2022 07/04/2021 Zoster Immunization (2 of 3) 03/17/2023 01/20/2023 Mammogram 07/17/2023 07/17/2021 Influenza Immunization (#1) 2024 SARS-COV-2 Immunization ( - 2023- season) 2024 Colonoscopy 08/15/2031 08/15/2021, 11/24/2020, 11/23/2020 Colorectal Cancer Screening 08/15/2031 Td Immunization Every 10 Yea rs (Adults With 1 Tdap) 10/14/2033 10/14/2023, 01/20/2023 Respiratory Syncytial Virus (RSV) Immunization (Adult) (1 - 1-dose 75+ series) 2046 08/15/2021, 11/24/2020, 11/23/2020 Hepatitis C Virus (HCV) Screening Completed 05/16/2021 Pneumococcal Immunization Combined Discontinued 07/04/2021 Discussion re Starting/Frequency of Mammograms Discontinued 07/17/2021 DTaP/Tdap/Td Immunization Discontinued 2022, 01/20/2023 Meningococcal Immunization (ACWY) Aged Out No longer eligible based on patient's age to complete this topic Rotavirus Immunization Aged Out No lo nger eligible based on patient's age to complete this topic Procedures Procedure Name Priority Date/Time Associated Diagnosis Comments URINALYSIS REFLEX IF INDICATED BY ABNORMAL RESULTS STAT 12/30/2024 5:35 PM DINKEY LOCOMOTIVE ENGINEER XR CHEST SINGLE VIEW PORTABLE STAT 12/30/2024 5:13 PM DINKEY LOCOMOTIVE ENGINEER CBC WITH AUTO DIFFERENTIAL STAT 12/30/2024 2:54 PM DINKEY LOCOMOTIVE ENGINEER MAGNESIUM (MG) STAT 12/30/2024 2:54 PM DINKEY LOCOMOTIVE ENGINEER HEMOGLOBIN A1C W/ ESTIMATED GLUCOSE STAT 12/30/2024 2:54 PM DINKEY LOCOMOTIVE ENGINEER CMP (COMPREHENSIVE METABOLIC PANEL) STAT 12/30/2024 2:54 PM DINKEY LOCOMOTIVE ENGINEER COMPLETE BLOOD COUNT (CBC) WITH DIFF STAT 12/30/2024 2:54 PM DINKEY LOCOMOTIVE ENGINEER RSV,SARS-COV-2,INFLUE NZA A&B BY PCR STAT 12/30/2024 2:14 PM DINKEY LOCOMOTIVE ENGINEER EKG 12 LEAD STAT 12/30/2024 2:13 PM DINKEY LOCOMOTIVE ENGINEER POCT GLUCOSE STAT 12/30/2024 2:09 PM DINKEY LOCOMOTIVE ENGINEER EKG SCAN 12/30/2024 12:00 AM DINKEY LOCOMOTIVE ENGINEER CBC WITH AUTO DIFFERENTIAL STAT 10/28/2024 6:13 PM DINKEY LOCOMOTIVE ENGINEER TROPONIN I, HIGH SENSITIVITY (HSTRP) STAT 10/28/2024 6:13 PM DINKEY LOCOMOTIVE ENGINEER CMP (COMPREHENSIVE METABOLIC PANEL) STAT 10/28/2024 6:13 PM DINKEY LOCOMOTIVE ENGINEER COMPLETE BLOOD COUNT (CBC) WITH DIFF STAT 10/28/2024 6:13 PM DINKEY LOCOMOTIVE ENGINEER EKG 12 LEAD STAT 10/28/2024 6:07 PM DINKEY LOCOMOTIVE ENGINEER EKG SCAN 10/28/2024 12:00 AM DINKEY LOCOMOTIVE ENGINEER JUAN SCREENING BILATERAL DIGITAL W CAD W KELLEY Routine 07/17/2021 4:16 PM CDT Breast cancer screening by mammogram HEPATITIS PANEL ACUTE (AHP) Routine 05/16/2021 12:58 PM CDT Muscle weakness from Last 3 Months or Most Recently Relevant to Health Maintenance Results * (ABNORMAL) URINALYSIS REFLEX IF INDICATED BY ABNORMAL RESULTS (12/30/2024 5:35 PM DINKEY LOCOMOTIVE ENGINEER) SPECIFIC GRAVITY 1.030 1.003 - 1.030 12/30/2024 6:39 PM DINKEY LOCOMOTIVE ENGINEER [facility] URINE PH 5.0 5.0 - 9.0 12/30/2024 6:39 PM DINKEY LOCOMOTIVE ENGINEER [facility] WBC ESTERASE Negative Negative 12/30/2024 6:39 PM DINKEY LOCOMOTIVE ENGINEER [facility] NITRITE Negative Negative 12/30/2024 6:39 PM DINKEY LOCOMOTIVE ENGINEER [facility] PROTEIN, RANDOM URINE 30 mg/dL(A) Negative 12/30/2024 6:39 PM DINKEY LOCOMOTIVE ENGINEER [facility] URINE GLUCOSE, QUAL Negative Negative 12/30/2024 6:39 PM DINKEY LOCOMOTIVE ENGINEER [facility] URINE KETONES Negative Negative 12/30/2024 6:39 PM DINKEY LOCOMOTIVE ENGINEER [facility] UROBILINOGEN Normal Normal mg/dL 12/30/2024 6:39 PM DINKEY LOCOMOTIVE ENGINEER [facility] URINE BLOOD Negative Negative shakeel/ul 12/30/2024 6:39 PM DINKEY LOCOMOTIVE ENGINEER [facility] URINALYSIS COLOR Yellow 12/30/19 25 6:39 PM DINKEY LOCOMOTIVE ENGINEER [facility] URINALYSIS CLARITY Clear 12/30/2024 6:39 PM DINKEY LOCOMOTIVE ENGINEER [facility] WBC (Urine) 0-5 Negative, 0-5 /hpf 12/30/2024 6:39 PM DINKEY LOCOMOTIVE ENGINEER [facility] URINE RBC'S 0-2 Negative, 0-2 /hpf 12/30/2024 6:39 PM DINKEY LOCOMOTIVE ENGINEER [facility] EPITHELIAL CELLS Small amount /lpf 2024 6:39 PM DINKEY LOCOMOTIVE ENGINEER [facility] BACTERIA, URINE Few(A) Negative /hpf 12/30/2024 6:39 PM DINKEY LOCOMOTIVE ENGINEER [facility] URINE MUCOUS Few 12/30/2024 6:39 PM DINKEY LOCOMOTIVE ENGINEER [facility] CRYSTALS Calcium oxalate 12/30/2024 6:39 PM DINKEY LOCOMOTIVE ENGINEER [facility] Urine URINE SPECIMEN / Unknown Non-Phlebotomy Collection / Unknown 12/30/2024 5:35 PM DINKEY LOCOMOTIVE ENGINEER 12/30/2024 5:54 PM DINKEY LOCOMOTIVE ENGINEER us Lito Camarena MD URINE ORDERABLES Final Result [facility] [address] [place] [address] * XR CHEST SINGLE VIEW PORTABLE (12/30/2024 5:13 PM DINKEY LOCOMOTIVE ENGINEER) Anatomical Region Laterality Modality Chest N/A Digital Radiogra phy 12/30/2024 5:45 PM DINKEY LOCOMOTIVE ENGINEER Impressions 12/30/2024 5:48 PM DINKEY LOCOMOTIVE ENGINEER IMPRESSION: No acute cardiopulmonary abnormality. Narrative 12/30/2024 5:48 PM DINKEY LOCOMOTIVE ENGINEER EXAM DESCRIPTION: XR CHEST SINGLE VIEW PORTABLE REASON FOR STUDY: pt c/o dizziness/light-headedness over the last 3 days that she suspected was due to elevated blood glucose. Pt states her blood glucose per her monitor at home has been running in the 200's-300's which is abnormal for her. Pt states that today the dizziness has increased and she is also feeling nauseous and tired. Denies fever/chills, cough, vomiting, or diarrhea TECHNIQUE: 1 radiographic view(s) of the chest. COMPARISON: 05/16/2021 FINDINGS: LUNGS: No focal opacity, pleural effusion, or pneumothorax. HEART/MEDIASTINUM: Cardiac silhouette normal in size. Mediastinal and hilar contours appear normal. LINES/TUBES: None. BONES: No acute osseous abnormality. THIS IS AN ELECTRONICALLY VERIFIED FINAL REPORT 12/30/2024 5:45 PM - Electronically signed by Prashant Freeman M.D. KT: SHONNA Report ID: [id number] Reading Location: [id number] Procedure Note Prashant Freeman MD - 12/30/2024 EXAM DESCRIPTION: XR CHEST SINGLE VIEW PORTABLE REASON FOR STUDY: pt c/o dizziness/light-headedness over the last 3 days that she suspected was due to elevated blood glucose. Pt states her blood glucose per her monitor at home has been running in the 200's-300's which is abnormal for her. Pt states that today the dizziness has increased and she is also feeling nauseous and tired. Denies fever/chills, cough, vomiting, or diarrhea TECHNIQUE: 1 radiographic view(s) of the chest. COMPARISON: 05/16/2021 FINDINGS: LUNGS: No focal opacity, pleural effusion, or pneumothorax. HEART/MEDIASTINUM: Cardiac silhouette normal in size. Mediastinal and hilar contours appear normal. LINES/TUBES: None. BONES: No acute osseous abnormality. THIS IS AN ELECTRONICALLY VERIFIED FINAL REPORT 12/30/2024 5:45 PM - Electronically signed by Prashant Freeman M.D. KT: SHONNA Report ID: [id number] Reading Location: [id number] IMPRESSION: No acute cardiopulmonary abnormality. us Lito Camarena MD [facility] DIAGNOSTIC ORDERAB LES Final Result * Hemoglobin A1C w/ Estimated Glucose (12/30/2024 2:54 PM DINKEY LOCOMOTIVE ENGINEER) Pathologist [facility] HGB-A1C 6.0 4.0 - 6.0 % 12/30/2024 5:23 PM DINKEY LOCOMOTIVE ENGINEER [facility] Est Average Glucose 125.5 mg/dL 12/30/2024 5:23 PM [facility] Blood Venipuncture / Unknown 12/30/2024 2:54 PM DINKEY LOCOMOTIVE ENGINEER 12/30/2024 3:05 PM DINKEY LOCOMOTIVE ENGINEER Narrative [facility] - 12/30/2024 5:23 PM DINKEY LOCOMOTIVE ENGINEER HEMOGLOBIN A1C: DIABETIC PATIENTS: WELL-CONTROLLED: 6.2 - 7.0 INTERMEDIATE WELL-CONTROLLED: 7.0 - 9.0 POORLY-CONTROLLED: >9.0 Specimens containing greater than 5% of Hemoglobin F may result in lower than expected % HbA1C results. us Lito Camarena MD CHEMISTRY ORDERABLES F inal Result [facility] [address] [place] [address] * CBC with Auto Differential (12/30/2024 2:54 PM DINKEY LOCOMOTIVE ENGINEER) Only the most recent of2 resultswithin the time period is included. [facility] WBC 8.31 4.00 - 12.00 10(3)/mcL 12/30/2024 3:11 PM [facility] RBC 4.58 3.80 - 5.30 10(6)/mcL 12/30/2024 3:11 PM [facility] HEMOGLOBIN (HGB) 12.9 12.0 - 15.8 g/dL 12/30/2024 3:11 PM [facility] HEMATOCRIT (HCT) 39.1 36.0 - 47.0 % 12/30/2024 3:11 PM [facility] MCV 85.4 82.0 - 96.0 fL 12/30/2024 3:11 PM [facility] MCH 28.2 26.0 - 34.0 pg 12/30/2024 3:11 PM [facility] MCHC 33.0 31.0 - 36.0 g/dL 12/30/2024 3:11 PM [facility] PLATELET COUNT 342 140 - 440 10(3)/[facility] 12/30/2024 3:11 PM [facility] RDW 13.5 11.8 - 15.5 % 12/30/2024 3:11 PM [facility] MPV 10.3 9.7 - 12.4 fL 12/30/2024 3:11 PM [facility] NEUTROPHILS 69.3 47.0 - 73.0 % 12/30/2024 3:11 PM [facility] LYMPHOCYTES 21.5 18.0 - 42.0 % 12/30/2024 3:11 PM [facility] MONOCYTES 7.0 4.0 - 12.0 % 12/30/2024 3:11 PM [facility] EOSINOPHILS 1.8 0.0 - 5.0 % 12/30/2024 3:11 PM [facility] BASOPHILS 0.4 0.0 - 1.0 % 12/30/2024 3:11 PM [facility] ABSOLUTE NEUTROPHILS 5.76 1.60 - 7.70 10(3)/mcL 12/30/2024 3:11 PM [facility] ABSOLUTE LYMPHOCYTES 1.79 1.30 - 3.20 10(3)/[facility] 12/30/2024 3:11 PM [facility] ABSOLUTE MONOCYTES 0.58 0.20 - 1.00 10(3)/mcL 12/30/2024 3:11 PM [facility] ABSOLUTE EOSINOPHIL 0.15 0.00 - 0.40 10(3)/[facility] 12/30/2024 3:11 PM [facility] ABSOLUTE BASOPHILS 0.03 0.00 - 0.10 10(3)/[facility] 12/30/2024 3:11 PM [facility] NRBC PER 100 WBC 0 12/30/19 3:11 PM [facility] Blood Venipuncture / Unknown 12/30/2024 2:54 PM DINKEY LOCOMOTIVE ENGINEER 12/30/2024 3:05 PM DINKEY LOCOMOTIVE ENGINEER Lito Camarena MD HEMATOLOGY ORDERABLES Final Result Performing Organization Address City/[facility]/ZIP Co de Phone Number [facility] [address] [place] [address] * Magnesium (12/30/2024 2:54 PM DINKEY LOCOMOTIVE ENGINEER) Pathologist [facility] MAGNESIUM 2.2 1.6 - 2.6 mg/dL 12/30/2024 5:18 PM DINKEY LOCOMOTIVE ENGINEER [facility] Blood Venipuncture / Unknown 12/30/2024 2:54 PM DINKEY LOCOMOTIVE ENGINEER 12/30/2024 3:05 PM DINKEY LOCOMOTIVE ENGINEER Lito Camarena MD CHEMISTRY ORDERABLES F inal Result Performing Organization Address City/[facility] Co de Phone Number [facility] [address] [place] [address] * (ABNORMAL) CMP (Comprehensive Metabolic Panel) (12/30/2024 2:54 PM DINKEY LOCOMOTIVE ENGINEER) Only the most recent of2 resultswithin the time period is included. SODIUM 145 136 - 145 mmol/L 12/30/2024 3:29 PM DINKEY LOCOMOTIVE ENGINEER [facility] POTASSIUM 4.0 3.5 - 5.1 mmol/L 12/30/2024 3:29 PM DINKEY LOCOMOTIVE ENGINEER [facility] CHLORIDE 109(H) 98 - 107 mmol/L 12/30/2024 3:29 PM DINKEY LOCOMOTIVE ENGINEER [facility] CO2, VENOUS 27 22 - 30 mmol/L 12/30/2024 3:29 PM DINKEY LOCOMOTIVE ENGINEER [facility] ANION GAP 13.0 <18.0 mmol/L 12/30/2024 3:29 PM DINKEY LOCOMOTIVE ENGINEER [facility] GLUCOSE 98 70 - 99 mg/dL 12/30/2024 3:29 PM DINKEY LOCOMOTIVE ENGINEER [facility] BUN 21(H) 10 - 20 mg/dL 12/30/2024 3:29 PM [facility] CREATININE, BLOOD 0.81 0.60 - 1.00 mg/dL 12/30/2024 3:29 PM [facility] BUN/CREATININE RATIO 26(H) 12 - 20 ratio 12/30/2024 3:29 PM [facility] TOTAL PROTEIN 7.3 6.0 - 8.0 g/dL 12/30/2024 3:29 PM [facility] ALBUMIN 4.4 3.5 - 5.0 g/dL 12/30/2024 3:29 PM [facility] A/G RATIO 1.5 1.0 - 2.2 12/30/2024 3:29 PM [facility] CALCIUM 10.5 8.7 - 10.5 mg/dL 12/30/2024 3:29 PM [facility] T BILI 0.3 0.2 - 1.2 mg/dL 12/30/2024 3:29 PM [facility] SGOT (AST) 25 6 - 42 U/L 12/30/2024 3:29 PM [facility] SGPT (ALT) 27 6 - 55 U/L 12/30/2024 3:29 PM [facility] ALKALINE PHOSPHATASE 43 40 - 150 U/L 12/30/2024 3:29 PM [facility] GFR, ESTIMATED >60 >=60 12/30/2024 3:29 PM [facility] Comment: Creatinine Clearance is the preferred criteria for selecting drug dose adjustments in renally impaired patients. The GFR is provided as additional pertinent clinical information. GFR is reported in mL/min/1.73 sq m. Calculation based on the Chronic Kidney Disease Epidemiology Collaboration (CKD- EPI) equation refit without adjustment for race. GFR, EST. >60 >=60 025 3:29 PM [facility] GFR, EST. NONAFRICAN >60 >=60 12/30/2024 3:29 PM DINKEY LOCOMOTIVE ENGINEER [facility] Blood Venipuncture / Unknown 12/30/2024 2:54 PM DINKEY LOCOMOTIVE ENGINEER 12/30/2024 3:05 PM DINKEY LOCOMOTIVE ENGINEER Lito Camarena MD CHEMISTRY ORDERABLES F inal Result Performing Organization Address [facility] Co de Phone Number [facility] [address] [place] [address] * RSV,SARS-COV-2,INFLUENZA A&B BY PCR (12/30/2024 2:14 PM DINKEY LOCOMOTIVE ENGINEER) Pathologist [facility] FLU A Negative Negative, Error 12/30/2024 3:23 PM DINKEY LOCOMOTIVE ENGINEER [facility] FLU B Negative Negative 12/30/2024 3:23 PM DINKEY LOCOMOTIVE ENGINEER [facility] RESP SYNC VIRUS Negative Negative 3:23 PM DINKEY LOCOMOTIVE ENGINEER [facility] SARSCOV2 NOT DETECTED (Reference Range for this test is Not Detected) 12/30/2024 3:23 PM DINKEY LOCOMOTIVE ENGINEER [facility] Comment:This test was perfor med by a Reverse Lease Purchase Truck Driver PCR Method. Swab NASOPHARYNGEAL SWAB / Unknown Non-Phlebotomy Collection / Unknown 12/30/2024 2:14 PM DINKEY LOCOMOTIVE ENGINEER 12/30/2024 2:38 PM DINKEY LOCOMOTIVE ENGINEER us Lito Camarena MD MICROBIOLOGY - GENERAL ORDERABLES Final Result Performing Organization Address [facility] Co de Phone Number [facility] [address] [place] [address] * EKG 12 LEAD (12/30/2024 2:13 PM DINKEY LOCOMOTIVE ENGINEER) Only the most recent of2 resultswithin the time period is included. Ventricular Rate 80 BPM EXTERNAL EKG Atrial Rate 80 BPM EXTERNAL EKG P-R Interval 160 ms EXTERNAL EKG QRS Duration 70 ms EXTERNAL EKG Q-T Duration 378 ms EXTERNAL EKG QTC CALCULATION 435 ms EXTERNAL EKG P [place] 72 degrees EXTERNAL EKG R [place] 7 degrees EXTERNAL EKG T [place] 62 degrees EXTERNAL EKG 12/30/2024 2:13 PM DINKEY LOCOMOTIVE ENGINEER Impressions EXTERNAL EKG - 01/03/2025 10:38 AM DINKEY LOCOMOTIVE ENGINEER Normal sinus rhythm Normal ECG When compared with ECG of 28-OCT-2024 18:07, No significant change was found Confirmed by Phoenix Moeller ([id number]) on 01/03/2025 10:37:57 AM Narrative Procedure Note Phoenix Moeller MD - 01/03/2025 IMPRESSION: Normal sinus rhythm Normal ECG When compared with ECG of 28-OCT-2024 18:07, No significant change was found Confirmed by Phoenix Moeller ([id number]) on 01/03/2025 10:37:57 AM us Lito Camarena MD IMG ECG ORDERABLES Fin al Result Performing Organization Address [facility] de Phone Number EXTERNAL EKG * POCT Glucose (12/30/2024 2:09 PM DINKEY LOCOMOTIVE ENGINEER) [facility] GLUCOSE,BEDSIDE POCT 96 70 - 99 mg/dL 12/30/2024 2:14 PM DINKEY LOCOMOTIVE ENGINEER [facility] Blood 12/30/2024 2:09 PM DINKEY LOCOMOTIVE ENGINEER 12/30/2024 2:14 PM DINKEY LOCOMOTIVE ENGINEER us None Provider POINT OF CARE TESTING Final Resu lt Performing Organization Address [facility] de Phone Number [facility] [address] [place] [address] * EKG SCAN (12/30/2024 12:00 AM DINKEY LOCOMOTIVE ENGINEER) Only the most recent of2 resultswithin the time period is included. 12/30/2024 us Provider Scan IMG ECG ORDERABLES Final Result Performing Organization Address City/[facility] Co de Phone Number RESULTING AGENCY * TROPONIN I, HIGH SENSITIVITY (HSTRP) (10/28/2024 6:13 PM DINKEY LOCOMOTIVE ENGINEER) TROPONIN I, HIGH SENSITIVITY- [place] <3 <=14 ng/L 10/28/2024 6:58 PM DINKEY LOCOMOTIVE ENGINEER [facility] Comment: High-sensitivity troponin I results are reported in ng/L making the result appear to be 1,000 times higher than the contemporary troponin I value which is reported in ng/ml. Results from [place]. Blood Venipuncture / Unknown 10/28/2024 6:13 PM DINKEY LOCOMOTIVE ENGINEER 10/28/2024 6:32 PM DINKEY LOCOMOTIVE ENGINEER us Ruddy Ha PAC CHEMISTRY ORDERABLES Final Result [facility] [address] [place] [address] * JUAN SCREENING BILATERAL DIGITAL W CAD W KELLEY (07/17/2021 4:16 PM CDT) Anatomical Region Laterality Modality breast Bilateral Mammography 07/17/2021 3:51 PM CDT Narrative 08/02/2021 2:57 PM CDT - JUAN SCREENING BILATERAL DIGITAL W CAD W KELLEY BILATERAL DIGITAL SCREENING MAMMOGRAM 3D/2D WITH CAD WITH MEDIOLATERAL OBLIQUE CRANIOCAUDAL: 07/17/2021 The study was acquired using digital technology and interpreted from soft copy. Current study was also evaluated with ICAD version 7.2. 2D digital mammographic views, as well as 3D digital tomosynthesis were performed in the CC and MLO projections. CLINICAL: Routine screening. Patient has no complaints. Personal history of rhabdomyocarcinoma of the eye. No family history of breast cancer. COMPARISONS: Comparison is made to exams dated: 06/29/2019 and 01/08/2019 [facility]. BREAST TISSUE:The tissue of both breasts is heterogeneously dense. This may lower the sensitivity of mammography. FINDINGS: There are benign appearing cysts in the right breast. No significant masses, calcifications, or other findings are seen in either breast. There has been no significant interval change. IMPRESSION: BI-RAD 2 BENIGN There is no mammographic evidence of malignancy. A 1 year screening mammogram is recommended. The patient has been or will be contacted. The patient will be entered into a reminder system with a target due date of 1 year for her next screening exam. Electronically signed by: Manda Callaway M.D. /penrad:08/02/2021 14:16:20 Experience Designer(s): Jesus Lemon(Adam)(Missy), [facility] letter sent: Normal Exam Reading location: NG BI-RADS: 2 Benign Procedure Note Manda Callaway MD - 08/02/2021 - JUAN SCREENING BILATERAL DIGITAL W CAD W KELLEY BILATERAL DIGITAL SCREENING MAMMOGRAM 3D/2D WITH CAD WITH MEDIOLATERAL OBLIQUE CRANIOCAUDAL: 07/17/2021 The study was acquired using digital technology and interpreted from soft copy. Current study was also evaluated with ICAD version 7.2. 2D digital mammographic views, as well as 3D digital tomosynthesis were performed in the CC and MLO projections. CLINICAL: Routine screening. Patient has no complaints. Personal history of rhabdomyocarcinoma of the eye. No family history of breast cancer. COMPARISONS: Comparison is made to exams dated: 06/29/2019 and 01/08/2019 [facility]. BREAST TISSUE:The tissue of both breasts is heterogeneously dense. This may lower the sensitivity of mammography. FINDINGS: There are benign appearing cysts in the right breast. No significant masses, calcifications, or other findings are seen in either breast. There has been no significant interval change. IMPRESSION: BI-RAD 2 BENIGN There is no mammographic evidence of malignancy. A 1 year screening mammogram is recommended. The patient has been or will be contacted. The patient will be entered into a reminder system with a target due date of 1 year for her next screening exam. Electronically signed by: Manda Callaway M.D. /penrad:08/02/2021 14:16:20 Experience Designer(s): Jesus Lemon(Adam)(M), [facility] letter sent: Normal Exam Reading location: [place] BI-RADS: 2 Benign us Alcon Davila MD IMG MAMMO ORDERABLES Final Resul t * HEPATITIS PANEL ACUTE (AHP) (05/16/2021 12:58 PM CDT) HEPATITIS A IGM ANTIBODY NON DETECTED NON DETECTED [place] [id number] 05/16/2021 10:26 PM CDT [facility] Comment: IGM Antibodies to HAV not detected. Does not exclude early acute or recovered HAV infection. HEP B CORE AB (IGM) NON DETECTED NON DETECTED [address] B 05/16/2021 10:26 PM CDT [facility] Comment:IGM anti-HBC not det ected. Does not exclude the possibility of exposure to or infection with HBV. HEPATITIS B SURFACE ANTIGEN NON DETECTED NON DETECTED [address] B 05/16/2021 10:26 PM CDT [facility] Comment:A nonreactive test r esult does not exclude the possibility of exposure to or infection with Hepatitis B virus. A nonreactive test result in individuals with prior exposure to hepatitis B may be due to antigen levels below the detection limit of this assay or lack of antigen reactivity to the antibodies in this assay. hepatitis C antibody 0.10 <1 S/CO [address] B 05/16/2021 10:26 PM CDT [facility] Comment: Signal/Cutoff ratio < 0.79 is Nondetected Signal/Cutoff ratio 0.80-0.99 is Grayzone Signal/Cutoff ratio > 0.99 is Detected Supplemental assays are recommended if signal/cutoff ratio is >/=1.00. Signal/cutoff ratio result >/= 5.00 is 97% predictive of positivity for recombinant immunoblot assay (RIBA) and will be reported to the [place] Department of Public Health as required. Blood Venipuncture / Unknown 05/16/2021 12:58 PM CDT 05/16/2021 2:18 PM CDT us Alcon Davila MD HEMATOLOGY ORDERABLES Final Resu lt [facility] [address] [place] [address], [place] from Last 3 Months or Most Recently Relevant to Health Maintenance Insurance MEDICAID [employer] Care Teams Journeyman Pipe Welder Relationship Specialty Start Date End Date Ginette Kathleen APRN [address] [place] [id number] PCP - General Advanced Practice Nurse 10/28/24 Jay Hickman MD [address] [place] [id number] General Surgery 08/19/16
[2025-01-05 18:25] LABS: Add Urine Microscopic? NO; Appearance Urine Clear (Clear); Bilirubin Urine Negative (Negative); Blood Urine Negative (Negative); Color Urine Yellow (Yellow); Glucose Urine UA Negative (Negative); Ketones Urine Negative (Negative); Leukocyte Esterase Ur Negative LEU/UL (Negative); Nitrate Urine Negative (Negative); Protein Urine Negative (Negative); Specific Grav Ur 1.016 (1.001-1.035); Urobilinogen Urine 0.2 mg/dL (<2.0); pH Urine 7.5 (5.0-9.0)
== END 2025-01-05 11:27 | disposition home or self-care (01) ==
LOC: ANHBWCLAB 11:27
PROVIDERS: PCP Nurse Practitioner Adult Health; Visit Provider Nurse Practitioner Adult Health
DX: R39.9 Unspecified symptoms and signs involving the genitourinary system (principal)
CPT/HCPCS: 81003; 87086

== ENCOUNTER 2025-03-14 10:30 | Outpatient (CLI) | payer OTHER, SELFPAY ==
--- OUTSIDE RECORDS SUMMARY | 2025-03-14 11:57 | XMS_ITS | Clinical Summary ---
Author Organization [facility] Address [address] [place] [address] Phone Care Team Providers Care Cylinder Dyer Name Role Phone Jay Hickman MD Unavailable [phone] Ginette Kathleen APRN Primary Care Provider [phone] Allergies No known active allergies Medications acyclovir [...] DAILY 1 Active Lancets (OneTouch Delica Plus [id number]) [facility] [place] TWICE DAILY 1 Active [...] Take 1/2 hour before evening meal Active Active Problems Problem Noted Date Diagnosed Date Overactive bladder 09/30/2016 MARTIN (stress urinary incontinence, female) 2015 Encounters Date Type Department Care Team Description 12/30/2024 3:50 PM LEAD SECTION SUPERVISOR - 12/30/2024 8:12 PM LEAD SECTION SUPERVISOR Emergency [facility] Emergency [address] [place] [address] Lito Camarena MD Furry, Craig William, MD Dizziness Discharge Disposition: Discharged to home or Selfcare 12/30/2024 Travel from Last 3 Months Immunizations Immunization Administration Dates Next Due Pneumococcal Vaccine Adult - 23 Valent TDAP Vaccine 10/14/2023 Family History Medical History [...] Comments Blood Pressure 138/72 12/30/2024 7:51 PM LEAD SECTION SUPERVISOR Pulse 72 12/30/2024 2:06 PM LEAD SECTION SUPERVISOR Temperature 37.3 C (99.1 F) 12/30/2024 2:06 PM LEAD SECTION SUPERVISOR Respiratory Rate 16 12/30/2024 2:06 PM LEAD SECTION SUPERVISOR Oxygen Saturation 99% 12/30/2024 2:06 PM LEAD SECTION SUPERVISOR Inhaled Oxygen Concentration - - Weight 49.9 kg (110 lb) 12/30/2024 2:06 PM LEAD SECTION SUPERVISOR Height 152.4 cm (5') 12/30/2024 2:06 PM LEAD SECTION SUPERVISOR Body Mass Index 21.48 12/30/2024 2:06 PM LEAD SECTION SUPERVISOR Plan of Treatment Health Maintenance Due Date Last Done Comments Hepatitis B Immunization (1 of 3 - 19+ 3-dose series) 1990 Pap Smear 1992 Cervical Cancer Screening (CCS) 2001 HPV/Cotest 2001 Cologuard 2021 Immunochemical Fecal Occult Blood 2021 Lung Cancer Screening 2021 Pneumococcal Immunization (5 0+ years) (2 of 2 - PCV) 07/04/2022 07/04/2021 Mammogram 07/17/2022 07/17/2021 Zoster Immunization (2 of 3) 03/17/2023 01/20/2023 Influenza Immunization (#1) 2024 SARS-COV-2 Immunization (1 - 2023- season) 2024 Colonoscopy 08/15/2031 08/15/2021, [...] BY ABNORMAL RESULTS STAT 12/30/2024 5:35 PM LEAD SECTION SUPERVISOR XR CHEST SINGLE VIEW PORTABLE STAT 12/30/2024 5:13 PM LEAD SECTION SUPERVISOR CBC WITH AUTO DIFFERENTIAL STAT 12/30/2024 2:54 PM LEAD SECTION SUPERVISOR MAGNESIUM (MG) STAT 12/30/2024 2:54 PM LEAD SECTION SUPERVISOR HEMOGLOBIN A1C W/ ESTIMATED GLUCOSE STAT 12/30/2024 2:54 PM LEAD SECTION SUPERVISOR CMP (COMPREHENSIVE METABOLIC PANEL) STAT 12/30/2024 2:54 PM LEAD SECTION SUPERVISOR COMPLETE BLOOD COUNT (CBC) WITH DIFF STAT 12/30/2024 2:54 PM LEAD SECTION SUPERVISOR RSV,SARS-COV-2,INFLUE NZA A&B BY PCR STAT 12/30/2024 2:14 PM LEAD SECTION SUPERVISOR EKG 12 LEAD STAT 12/30/2024 2:13 PM LEAD SECTION SUPERVISOR POCT GLUCOSE STAT 12/30/2024 2:09 PM LEAD SECTION SUPERVISOR EKG SCAN 12/30/2024 12:00 AM LEAD SECTION SUPERVISOR JUAN SCREENING BILATERAL DIGITAL W CAD W KELLEY Routine 07/17/2021 4:16 PM CDT Breast cancer screening by mammogram HEPATITIS PANEL ACUTE (AHP) Routine 05/16/2021 12:58 PM CDT Muscle weakness from Last 3 Months or Most Recently Relevant to Health Maintenance Results * (ABNORMAL) URINALYSIS REFLEX IF INDICATED BY ABNORMAL RESULTS (12/30/2024 5:35 PM LEAD SECTION SUPERVISOR) SPECIFIC GRAVITY 1.030 1.003 - 1.030 12/30/2024 6:39 PM LEAD SECTION SUPERVISOR [facility] URINE PH 5.0 5.0 - 9.0 12/30/2024 6:39 PM LEAD SECTION SUPERVISOR [facility] WBC ESTERASE Negative Negative 12/30/2024 6:39 PM LEAD SECTION SUPERVISOR [facility] NITRITE Negative Negative 12/30/2024 6:39 PM LEAD SECTION SUPERVISOR [facility] PROTEIN, RANDOM URINE 30 mg/dL(A) Negative 12/30/2024 6:39 PM LEAD SECTION SUPERVISOR [facility] URINE GLUCOSE, QUAL Negative Negative 12/30/2024 6:39 PM LEAD SECTION SUPERVISOR [facility] URINE KETONES Negative Negative 12/30/2024 6:39 PM LEAD SECTION SUPERVISOR [facility] UROBILINOGEN Normal Normal mg/dL 12/30/2024 6:39 PM LEAD SECTION SUPERVISOR [facility] URINE BLOOD Negative Negative shakeel/ul 12/30/2024 6:39 PM LEAD SECTION SUPERVISOR [facility] URINALYSIS COLOR Yellow 12/30/19 6:39 PM LEAD SECTION SUPERVISOR [facility] URINALYSIS CLARITY Clear 12/30/2024 6:39 PM LEAD SECTION SUPERVISOR [facility] WBC (Urine) 0-5 Negative, 0-5 /hpf 12/30/2024 6:39 PM LEAD SECTION SUPERVISOR [facility] URINE RBC'S 0-2 Negative, 0-2 /hpf 12/30/2024 6:39 PM LEAD SECTION SUPERVISOR [facility] EPITHELIAL CELLS Small amount /lpf 2024 6:39 PM LEAD SECTION SUPERVISOR [facility] BACTERIA, URINE Few(A) Negative /hpf 12/30/2024 6:39 PM LEAD SECTION SUPERVISOR [facility] URINE MUCOUS Few 12/30/2024 6:39 PM LEAD SECTION SUPERVISOR [facility] CRYSTALS Calcium oxalate 12/30/2024 6:39 PM LEAD SECTION SUPERVISOR [facility] Urine URINE SPECIMEN / Unknown Non-Phlebotomy Collection / Unknown 12/30/2024 5:35 PM LEAD SECTION SUPERVISOR 12/30/2024 5:54 PM LEAD SECTION SUPERVISOR us Lito Camarena MD URINE ORDERABLES Final Result [facility] [address] [place] [address] * XR CHEST SINGLE VIEW PORTABLE (12/30/2024 5:13 PM LEAD SECTION SUPERVISOR) Anatomical Region Laterality Modality Chest N/A Digital Radiogra phy 12/30/2024 5:45 PM LEAD SECTION SUPERVISOR Impressions 12/30/2024 5:48 PM LEAD SECTION SUPERVISOR IMPRESSION: No acute cardiopulmonary abnormality. Narrative 12/30/2024 5:48 PM LEAD SECTION SUPERVISOR EXAM DESCRIPTION: XR CHEST SINGLE VIEW PORTABLE [...] Prashant Freeman M.D. KT: SHONNA Report ID: [id number] Reading Location: [id number] Procedure Note Prashant Freeman MD - 12/30/2024 [...] Electronically signed by Prashant Freeman M.D. KT: KT Report ID: [id number] Reading Location: [place] [address] IMPRESSION: No acute cardiopulmonary abnormality. Lito Camarena MD IMG DIAGNOSTIC ORDERAB LES Final Result * Hemoglobin A1C w/ Estimated Glucose (12/30/2024 2:54 PM LEAD SECTION SUPERVISOR) Pathologist [facility] HGB-A1C 6.0 4.0 - 6.0 % 12/30/2024 5:23 PM LEAD SECTION SUPERVISOR [facility] Est Average Glucose 125.5 mg/dL 12/30/2024 5:23 PM LEAD SECTION SUPERVISOR [facility] Blood Venipuncture / Unknown 12/30/2024 2:54 PM LEAD SECTION SUPERVISOR 12/30/2024 3:05 PM LEAD SECTION SUPERVISOR Narrative [facility] - 12/30/2024 5:23 PM LEAD SECTION SUPERVISOR HEMOGLOBIN A1C: DIABETIC PATIENTS: WELL-CONTROLLED: 6.2 - 7.0 INTERMEDIATE WELL-CONTROLLED: 7.0 - 9.0 POORLY-CONTROLLED: >9.0 Specimens containing greater than 5% of Hemoglobin F may result in lower than expected % HbA1C results. Lito Camarena MD CHEMISTRY ORDERABLES F inal Result [facility] [address] [place] [address] * CBC with Auto Differential (12/30/2024 2:54 PM LEAD SECTION SUPERVISOR) Pathologist [facility] WBC 8.31 4.00 - 12.00 10(3)/mcL 12/30/2024 3:11 PM LEAD SECTION SUPERVISOR [facility] RBC 4.58 3.80 - 5.30 10(6)/[facility] 12/30/2024 3:11 PM [facility] HEMOGLOBIN (HGB) 12.9 12.0 - 15.8 g/dL 12/30/2024 3:11 PM [facility] HEMATOCRIT (HCT) 39.1 36.0 - 47.0 % 12/30/2024 3:11 PM [facility] MCV 85.4 82.0 - 96.0 fL 12/30/2024 3:11 PM [facility] MCH 28.2 26.0 - 34.0 pg 12/30/2024 3:11 PM [facility] MCHC 33.0 31.0 - 36.0 g/dL 12/30/2024 3:11 PM [facility] PLATELET COUNT 342 140 - 440 10(3)/[facility] 12/30/2024 3:11 PM [facility] RDW 13.5 11.8 - 15.5 % 12/30/2024 3:11 PM [facility] MPV 10.3 9.7 - 12.4 fL 12/30/2024 3:11 PM [facility] NEUTROPHILS 69.3 47.0 - 73.0 % 12/30/2024 3:11 PM [facility] LYMPHOCYTES 21.5 18.0 - 42.0 % 12/30/2024 3:11 PM [facility] MONOCYTES 7.0 4.0 - 12.0 % 12/30/2024 3:11 PM [facility] EOSINOPHILS 1.8 0.0 - 5.0 % 12/30/2024 3:11 PM [facility] BASOPHILS 0.4 0.0 - 1.0 % 12/30/2024 3:11 PM [facility] ABSOLUTE NEUTROPHILS 5.76 1.60 - 7.70 10(3)/mcL 12/30/2024 3:11 PM [facility] ABSOLUTE LYMPHOCYTES 1.79 1.30 - 3.20 10(3)/mcL 12/30/2024 3:11 PM LEAD SECTION SUPERVISOR [facility] ABSOLUTE MONOCYTES 0.58 0.20 - 1.00 10(3)/[facility] 12/30/2024 3:11 PM LEAD SECTION SUPERVISOR [facility] ABSOLUTE EOSINOPHIL 0.15 0.00 - 0.40 10(3)/[facility] 12/30/2024 3:11 PM LEAD SECTION SUPERVISOR [facility] ABSOLUTE BASOPHILS 0.03 0.00 - 0.10 10(3)/[facility] 12/30/2024 3:11 PM LEAD SECTION SUPERVISOR [facility] NRBC PER 100 WBC 0 12/30/19 25 3:11 PM LEAD SECTION SUPERVISOR [facility] Blood Venipuncture / Unknown 12/30/2024 2:54 PM LEAD SECTION SUPERVISOR 12/30/2024 3:05 PM LEAD SECTION SUPERVISOR Lito Camarena MD HEMATOLOGY ORDERABLES Final Result Performing Organization Address City/[facility]/ZIP Co de Phone Number [facility] [address] [place] [address] * Magnesium (12/30/2024 2:54 PM LEAD SECTION SUPERVISOR) Pathologist [facility] MAGNESIUM 2.2 1.6 - 2.6 mg/dL 12/30/2024 5:18 PM LEAD SECTION SUPERVISOR [facility] Blood Venipuncture / Unknown 12/30/2024 2:54 PM LEAD SECTION SUPERVISOR 12/30/2024 3:05 PM LEAD SECTION SUPERVISOR Lito Camarena MD CHEMISTRY ORDERABLES F inal Result [facility] [address] [place] [address] * (ABNORMAL) CMP (Comprehensive Metabolic Panel) (12/30/2024 2:54 PM LEAD SECTION SUPERVISOR) SODIUM 145 136 - 145 mmol/L 12/30/2024 3:29 PM LEAD SECTION SUPERVISOR [facility] POTASSIUM 4.0 3.5 - 5.1 mmol/L 12/30/2024 3:29 PM [facility] CHLORIDE 109(H) 98 - 107 mmol/L 12/30/2024 3:29 PM [facility] CO2, VENOUS 27 22 - 30 mmol/L 12/30/2024 3:29 PM [facility] ANION GAP 13.0 <18.0 mmol/L 12/30/2024 3:29 PM [facility] GLUCOSE 98 70 - 99 mg/dL 12/30/2024 3:29 PM [facility] BUN 21(H) 10 - 20 mg/dL 12/30/2024 3:29 PM [facility] CREATININE, BLOOD 0.81 0.60 - 1.00 mg/dL 12/30/2024 3:29 PM [facility] BUN/CREATININE RATIO 26(H) 12 - 20 ratio 12/30/2024 3:29 PM [facility] TOTAL PROTEIN 7.3 6.0 - 8.0 g/dL 12/30/2024 3:29 PM [facility] ALBUMIN 4.4 3.5 - 5.0 g/dL 12/30/2024 3:29 PM [facility] A/G RATIO 1.5 1.0 - 2.2 12/30/2024 3:29 PM [facility] CALCIUM 10.5 8.7 - 10.5 mg/dL 12/30/2024 3:29 PM [facility] T BILI 0.3 0.2 - 1.2 mg/dL 12/30/2024 3:29 PM [facility] SGOT (AST) 25 6 - 42 U/L 12/30/2024 3:29 PM [facility] SGPT (ALT) 27 6 - 55 U/L 12/30/2024 3:29 PM [facility] ALKALINE PHOSPHATASE 43 40 - 150 U/L 12/30/2024 3:29 PM [facility] GFR, ESTIMATED >60 >=60 12/30/2024 3:29 PM LEAD SECTION SUPERVISOR [facility] Comment: Creatinine Clearance is the preferred criteria for selecting drug dose adjustments in renally impaired patients. The GFR is provided as additional pertinent clinical information. GFR is reported in mL/min/1.73 sq m. Calculation based on the Chronic Kidney Disease Epidemiology Collaboration (CKD- EPI) equation refit without adjustment for race. GFR, EST. >60 >=60 025 3:29 PM LEAD SECTION SUPERVISOR [facility] GFR, EST. NONAFRICAN >60 >=60 12/30/2024 3:29 PM LEAD SECTION SUPERVISOR [facility] Blood Venipuncture / Unknown 12/30/2024 2:54 PM LEAD SECTION SUPERVISOR 12/30/2024 3:05 PM LEAD SECTION SUPERVISOR Lito Camarena MD CHEMISTRY ORDERABLES F inal Result Performing Organization Address City/[facility]/ZIP Co de Phone Number [facility] [address] [place] [address] * RSV,SARS-COV-2,INFLUENZA A&B BY PCR (12/30/2024 2:14 PM LEAD SECTION SUPERVISOR) FLU A Negative Negative, Error 12/30/2024 3:23 PM LEAD SECTION SUPERVISOR [facility] FLU B Negative Negative 12/30/2024 3:23 PM LEAD SECTION SUPERVISOR [facility] RESP SYNC VIRUS Negative Negative 3:23 PM LEAD SECTION SUPERVISOR [facility] SARSCOV2 NOT DETECTED (Reference Range for this test is Not Detected) 12/30/2024 3:23 PM LEAD SECTION SUPERVISOR [facility] Comment:This test was perfor med by a Reverse Acct Exec PCR Method. Swab NASOPHARYNGEAL SWAB / Unknown Non-Phlebotomy Collection / Unknown 12/30/2024 2:14 PM LEAD SECTION SUPERVISOR 12/30/2024 2:38 PM LEAD SECTION SUPERVISOR Lito Camarena MD MICROBIOLOGY - GENERAL ORDERABLES Final Result [facility] [address] [place] [address] * EKG 12 LEAD (12/30/2024 2:13 PM LEAD SECTION SUPERVISOR) Ventricular Rate 80 BPM EXTERNAL EKG Atrial Rate 80 BPM EXTERNAL EKG P-R Interval 160 ms EXTERNAL EKG QRS Duration 70 ms EXTERNAL EKG Q-T Duration 378 ms EXTERNAL EKG QTC CALCULATION 435 ms EXTERNAL EKG P Goodrich 72 degrees EXTERNAL EKG R Goodrich 7 degrees EXTERNAL EKG T Goodrich 62 degrees EXTERNAL EKG 12/30/2024 2:13 PM LEAD SECTION SUPERVISOR Impressions EXTERNAL EKG - 01/03/2025 10:38 AM LEAD SECTION SUPERVISOR Normal sinus rhythm Normal ECG When compared with ECG of 28-OCT-2024 18:07, No significant change was found Confirmed by Phoenix Moeller ([id number]) on 01/03/2025 10:37:57 AM Narrative Procedure Note Phoenix Moeller MD - 01/03/2025 IMPRESSION: Normal sinus rhythm Normal ECG When compared with ECG of 28-OCT-2024 18:07, No significant change was found Confirmed by Phoenix Moeller ([id number]) on 01/03/2025 10:37:57 AM us Lito Camarena MD IMG ECG ORDERABLES Fin al Result Performing Organization Address [facility] Co de Phone Number EXTERNAL EKG * POCT Glucose (12/30/2024 2:09 PM LEAD SECTION SUPERVISOR) Pathologist [facility] GLUCOSE,BEDSIDE POCT 96 70 - 99 mg/dL 12/30/2024 2:14 PM LEAD SECTION SUPERVISOR [facility] Blood 12/30/2024 2:09 PM LEAD SECTION SUPERVISOR 12/30/2024 2:14 PM LEAD SECTION SUPERVISOR us None Provider POINT OF CARE TESTING Final Resu lt Performing Organization Address [facility] Co de Phone Number [facility] [address] [place] [address] * EKG SCAN (12/30/2024 12:00 AM LEAD SECTION SUPERVISOR) 12/30/2024 us Provider Scan IMG ECG ORDERABLES Final Result RESULTING AGENCY * JUAN SCREENING BILATERAL DIGITAL W CAD W KELLEY (07/17/2021 4:16 PM CDT) Anatomical Region Laterality Modality breast Bilateral Mammography 07/17/2021 3:51 PM CDT Narrative 08/02/2021 2:57 PM CDT - JUAN SCREENING BILATERAL DIGITAL W CAD W KLELEY BILATERAL DIGITAL SCREENING MAMMOGRAM 3D/2D WITH CAD WITH MEDIOLATERAL OBLIQUE CRANIOCAUDAL: 07/17/2021 The study was acquired using digital technology and interpreted from soft copy. Current study was also evaluated with [employer] version 7.2. 2D digital mammographic views, as well as 3D digital tomosynthesis were performed in the CC and MLO projections. CLINICAL: Routine screening. Patient has no complaints. Personal history of rhabdomyocarcinoma of the eye. No family history of breast cancer. COMPARISONS: Comparison is made to exams dated: 06/29/2019 and 01/08/2019 [facility]. BREAST TISSUE:The tissue of both breasts is [...] next screening exam. Electronically signed by: Manda welch/breezy:08/02/2021 14:16:20 Transfer Pumper(s): Ruben Lemon)(M), [facility] letter sent: Normal Exam Reading location: [place] [...] made to exams dated: 06/29/2019 and 01/08/2019 [facility]. BREAST TISSUE:The tissue of both breasts is [...] next screening exam. Electronically signed by: Manda welch/breezy:08/02/2021 14:16:20 Transfer Pumper(s): Ruben Lemon)(Missy), [facility] letter sent: Normal Exam Reading location: [facility] BI-RADS: 2 Benign us Alcon Davila MD IMG MAMMO ORDERABLES Final Resul t * HEPATITIS PANEL ACUTE (AHP) (05/16/2021 12:58 PM CDT) HEPATITIS A IGM ANTIBODY NON DETECTED NON DETECTED [facility] ARCH [id number] B 05/16/2021 10:26 PM CDT [facility] Comment: IGM Antibodies to HAV not detected. Does not exclude early acute or recovered HAV infection. HEP B CORE AB (IGM) NON DETECTED NON DETECTED [facility] ARCH [id number] B 05/16/2021 10:26 PM CDT [facility] Comment:IGM anti-HBC not det ected. Does not exclude the possibility of exposure to or infection with HBV. HEPATITIS B SURFACE ANTIGEN NON DETECTED NON DETECTED [facility] ARCH [id number] B 05/16/2021 10:26 PM CDT [facility] Comment:A nonreactive test r esult does not exclude the possibility of exposure to or infection with Hepatitis B virus. A nonreactive test result in individuals with prior exposure to hepatitis B may be due to antigen levels below the detection limit of this assay or lack of antigen reactivity to the antibodies in this assay. hepatitis C antibody 0.10 <1 S/CO [facility] ARCH [id number] B 05/16/2021 10:26 PM CDT [facility] Comment: Signal/Cutoff ratio < 0.79 is Nondetected Signal/Cutoff ratio 0.80-0.99 is Grayzone Signal/Cutoff ratio > 0.99 is Detected Supplemental assays are recommended if signal/cutoff ratio is >/=1.00. Signal/cutoff ratio result >/= 5.00 is 97% predictive of positivity for recombinant immunoblot assay (RIBA) and will be reported to the [place] Department of Public Health as required. Blood Venipuncture / Unknown 05/16/2021 12:58 PM CDT 05/16/2021 2:18 PM CDT us Alcon Davila MD HEMATOLOGY ORDERABLES Final Resu lt [facility] [address] [place] [address], from Last 3 Months or Most Recently Relevant to Health Maintenance Insurance MEDICAID [employer] Care Teams Cylinder Dyer Relationship Specialty Start Date End Date Ginette Kathleen APRN [address] [place] [address] PCP - General Advanced Practice Nurse 10/28/24 Jay Hickman MD [address] [place] [id number] General Surgery 08/19/16
[2025-03-14 19:43] LABS: Alanine Aminotransferase 25 U/L (6-35); Albumin Level 4.7 g/dL (3.5-5.1); Alkaline Phosphatase 54 U/L (38-126); Anion Gap 9 mmol/L (4-12); Aspartate Amino Transferase 69 U/L (14-36); Bilirubin,Total 0.5 mg/dL (0.2-1.3); Blood Urea Nitrogen 19 mg/dL (7-17); Calcium 9.5 mg/dL (8.4-10.2); Carbon Dioxide 26 mmol/L (22-30); Chloride 105 mmol/L (98-107); Cholesterol 206 mg/dL (0-200); Estimated Glomerular Filt Rate > 60; Glucose 123 mg/dL (65-110); HDL Direct 55 mg/dL; Potassium 4.1 mmol/L (3.4-5.0); Sodium 140 mmol/L (137-145); Triglycerides 149 mg/dL (<150)
[2025-03-14 19:54] LABS: LDL Cholesterol Direct 100 mg/dL
[2025-03-14 20:16] LABS: Thyroid Stimulating Hormone 0.571 uIU/mL (0.465-4.680)
[2025-03-14 20:17] LABS: Vitamin D 25 Hydroxy 34.4 ng/mL
[2025-03-14 20:47] LABS: Hemoglobin A1C 6.3 % (<5.7)
[2025-03-14 21:46] LABS: MALB Creatinine Ratio 9.7 mg/g (0-30)
== END 2025-03-14 10:31 | disposition home or self-care (01) ==
LOC: ANHCATHLAB 10:32 → ANHBWCLAB 10:33
PROVIDERS: PCP Nurse Practitioner Adult Health; Visit Provider Nurse Practitioner Adult Health
DX: E07.9 Disorder of thyroid, unspecified (principal); E11.9 Type 2 diabetes mellitus without complications; E55.9 Vitamin D deficiency, unspecified
CPT/HCPCS: 36415; 80053; 80061; 82043; 82306; 82565; 83036; 84443

== ENCOUNTER 2025-03-25 09:49 | Outpatient (CLI) | payer OTHER, SELFPAY ==
--- NOTE | ~2025-03-25 | MM_ITS ---
EXAMINATION: MM screening kaylyn BI w jazmyn HISTORY: Screening TECHNIQUE: Craniocaudal and mediolateral oblique 3-D tomosynthesis images were obtained and synthetic 2-D images were generated. CAD analysis was submitted and interpreted. COMPARISON: Comparison to multiple prior studies sequentially, with oldest reviewed study dated 07/17. BREAST PARENCHYMAL COMPOSITION: Not dense: There are scattered areas of fibroglandular density. FINDINGS: Bilateral breast asymmetries in right breast mass are stable allowing for differences of te chnique. No new masses, calcifications or architectural distortion in either breast to suggest malign ynes. IMPRESSION: 1. No mammographic evidence of malignancy. 2. Recommend routine screening mammography in one year. Reviewed, dictated and finalized at location A.
--- OUTSIDE RECORDS SUMMARY | 2025-03-26 11:40 | XMS_ITS | Data Portability ---
Author Organization [facility] [place] Address [address] [place] [address] Care Team Providers Care Product Safety Expert Name Role Phone LOREN FOX Primary Care Provider Assessment Encounter Date Assessment Date Assessment LastModified by Organization Details LastModified Time 07/22/2022 07/22/2022 Annual gynecological exam performed. Patient will come back in a year unless there are new symptoms. [email or web address] Not available 07/22/2022 11:32:52 04/26/2024 04/26/2024 Annual gynecological exam performed. Patient will come back in a year unless there are new symptoms. [email or web address] Not available 04/26/2024 09:35:30 Plan of Treatment Reminders Order Date Submit Date Provider Last Modified By Organization Details Last Modified Time Details Appointments None recorded . Lab hormone panel, serum or plasma 2021 022 [facility] (Lab), [address], [place], [address], 2 06:17:52 TSH, serum or plasma 2021 022 [facility] (Lab), [address] [place], [address], 2 06:17:52 Referral dermatol ogist referral - Melanocy tic nevus of skinPlea se contact this patient to schedule an appointm entAttac hed are the patients demograp hics and most recent office visit notes.If you have any question s, please contact me at [phone].Th Raheel recio, Referral 's 2021 022 [facility], [address] [place], [address], 2 14:50:27 Procedures None recorded . Surgeries None recorded . Imaging MAMMO, screenin g, digital, bilatera l 2023 024 [facility], [address], [place], [address], 4 05:01:05 MAMMO, screenin g, bilatera l 2021 022 [facility], [address], [place], [address], 2 10:14:48 Medication Orders estradio l 0.025 mg/24 hr weekly transder mal patch 2023 024 [facility], [address], [address], [place], [address], 5 17:02:56 Prometri um 100 mg capsule 2023 024 [facility], [address], [address], [place], [address], 5 17:02:57 estradio l 0.025 mg/24 hr weekly transder mal patch 2023 024 [facility], [address], [address], [place], [address], 4 17:55:43 Prometri um 200 mg capsule 2023 024 [facility], [address], [address], [place], [address], 4 14:43:39 Brisdell e 7.5 mg capsule 2023 024 [id number], [address] , [place], [place], [id number], 4 10:49:49 acyclovi r 400 mg tablet 2023 024 [id number], [address] , [place], [place], [id number], 4 16:55:40 Patient TargetsNo targets recorded. Patient InstructionsNo instructions recorded. Reason for Referral General Medical Practitioner Referral for M elanocytic nevus of skin Melanocytic nevus of skin Melanocytic nevus of skinPlease contact this patient to schedule an appointmentAttached are the patients demographics and most recent office visit notes.If you have any questions, please contact me at [phone].Thank you,Stephany Referral's Referring Physician: Chayo Fajardo, INVESTIGATIONS DIRECTOR, Encounter Date: 07/22/2022 Results Created Date Observation Date Name Description Value Unit Range Abnormal Flag Note LastModifiedBy Organization Detail LastModifiedTime 07/22/20 22 07/22/2022 TSH, REFLE X FREE T4 TSH 0.72 uIU/m L 0.30-5 .33 Not Available [facility] [address] [place], [address], 07/23/2022 06:17:52 07/22/2007/22/2022 FSH, LH, ESTRA DIOL estradiol <5.0 pg/mL This assay was perfo rmed using [employer] ratio n reage nts and test kits. Value s obtai sylvester with other assay metho ds or kits canno t be used inter [facility] e[facility] . Femal e Estra diol Range s: Folli cular phase 12.4- 233 pg/mL Ovula tion phase 41.0- 398 pg/mL Lutea l phase 22.3- 341 pg/mL Postm enopa usal< 5-138 pg/mL Healt hy Pregn ant Women 1st Trime ster1 54-32 43 pg/mL 2nd Trime ster1 561-2 1280 pg/mL 3rd Trime ster8 525-> 90690 pg/mL Not Available [facility] [address] [place] [address], [address], 07/23/2022 06:17:52 07/22/20 22 07/22/2022 FSH, LH, ESTRA DIOL FSH 58.9 mIU/m L This assay was perfo rmed using [employer] reage nts and test kits. Value s obtai sylvester with other assay metho ds or kits canno t be used [facility] . Femal es Folli cular : 3.5-1 2.5 mIU/m L Ovula tion: 4.7-2 1.5 mIU/m L Lutea l: 1.7-7 .7 mIU/m L Postm enopa use: 25.8- 134.8 mIU/m L Not Available [facility] [address] [place] [address], [address], 07/23/2022 06:17:52 07/22/20 22 07/22/2022 FSH, LH, ESTRA DIOL LH 26.2 mIU/m L This assay was perfo rmed using [employer] reage nts and test kits. Value s obtai sylvester with other assay metho ds or kits canno t be used [facility] . Femal es Mid-F ollic ular: 2.4-1 2.6 mIU/m L Mid-C ycle: 14.0- 95.6 mIU/m L Mid-L uteal : 1.0-1 1.4 mIU/m L Postm enopa use: 7.7-5 8.5 mIU/m L Not Available [facility] [address] [place], [address], 07/23/2022 06:17:52 07/22/20 22 07/22/2022 IMAGE GUIDE D PAP AND HPV REGAR DLESS image guided Pap, HPV regardless of Pap result SEE RESULT S BELOW CASE REPOR T: Cytol ogy Gynec ologi katelin Repor t Case: [id number] Autho chris bautista Provi darwin: Chayo Fajardo, LOLA Khan cted: 07/22 1400 Order ing Locat ion: [place] Patho logy Recei brian: 07/23 0329 First Scree n: Yamile Ballard Speci men: Scree maxx Pap - Image d, Cervi x STATE MENT OF ADEQU ACY: Satis facto ry for evalu ation Trans forma tion zone compo nent canno t be defin itive ly ident ified due to the prese nce of atrop hy or other hormo nal borjas es FINAL DIAGN OSIS: Negat wendy for Intra epith elial Lesio n or Lou raman (NIL) . Atrop hic cell lou ruggiero. Elect lissette keller d by Yamile Ballard on 022 at 1:25 PM ----- ----- ----- ----- ----- ----- ----- ----- ----- ----- ----- ----- ----- ----- ----- ----- ----- ---- HPV RESUL TS: HPV mRNA E6/E7 : No HPV mRNA Detec aiden NOTE: This high risk HPV mRNA assay detec ts fourt een high- risk HPV types (16, 18, 31, 33, 35, 39, 45, 51, 52, 56, 58, 59, 66, 68) witho ut diffe renti ation . COMME NT: Note: This speci men was revie wed by a Cytot echno logis t and/o r Patho logis t (as indic ated in this repor t) after evalu ation using the Thinp rep Imagi ng Syste m. CLINI KATELIN INFOR MATIO N: Menst rual Statu s: LMP (if appli cable ): Clini katelin Histo ry/Pr eviou s Pap: Type of Neopl renetta (if appli cable ): Signi fican t Clini katelin Findi ngs: Other Histo ry: Hormo jodi (if appli cable ): PAP EDUCA LEONOR L NOTE: The Pap Test is a scree maxx test with an inher ent false negat wendy rate. Liqui d-bas ed sampl ing may decre ase, but will not elimi juan a, false negat wendy resul ts. A negat wendy resul t does not precl ude the prese nce and/o r devel opmen t of disea se, since the prese nce of abnor mal cells in the sampl e depen ds on the locat ion of the lesio n and sampl ing techn ique. Seth nued regul ar scree maxx is the best metho d of cance r preve ntion . If repor aiden cytol ogic findi ng do not corre late with physi katelin and/o r histo rical findi ngs, furth er inves tigat ion is recom bolivar d, as clini cynthia warra nted. Not Available [facility] [address] [place], [address], 07/26/2022 14:28:09 08/06/20 22 08/06/2022 SURGI KATELIN PATHO LOGY surgical pathology SEE RESULT S BELOW CASE REPOR T: Surgi katelin Patho logy Repor t Case: [id number] Autho chris bautista Provi darwin: Chayo Fajardo, LOLA Colle cted: 08/06 1657 Order ing Locat ion: [place] Patho [place] Recei brian: 08/07 0413 Patho logis t: Citlali Borjas MD Speci men: Vulva , Vulva r biops y FINAL DIAGN OSIS: Vulva , biops y: -Armen ngiom a. Elect lissette dawson arianna d by Citlali Borjas MD on 2021 at 3:26 PM ----- ----- ----- ----- ----- ----- ----- ----- ----- ----- ----- ----- ----- ----- ----- ----- ----- ---- CLINI KATELIN INFOR MICHAEL N: N90.8 9 MICRO SCOPI C DESCR IPTIO N: A micro scopi c exami natio n was perfo rmed. GROSS DESCR IPTIO N: A. Vulva . The speci men is label ed with the patie nt's name, demog raphi cs and vulv a . Recei brian in forma gerry is a 0.3 cm fragm ent of cristela morejon. It is submi tted all in casse tte A1. Gross ed by Shila Traore on Not Available [facility] [address] [place], [address], 08/09/2022 16:29:04 04/26/20 24 04/26/2024 IMAGE GUIDE D PAP AND HPV REGAR DLESS image guided Pap, HPV regardless of Pap result SEE RESULT S BELOW CASE REPOR T: Cytol ogy Gynec ologi katelin Repor t Case: [id number] Autho chris bautista Provi darwin: Chayo Fajardo, LOLA Colle cted: 04/26 1540 Order ing Locat ion: [place] Patho logy Recei brian: 04/27 1054 First Scree n: Eric Mccain , [place] Speci men: Galo lilly Pap - Image d, Cervi x STATE MENT OF ADEQU ACY: Satis facto ry for evalu ation Trans forma tion zone compo nent prese nt ----- ----- ----- ----- ----- ----- ----- ----- ----- ----- ----- ----- ----- ----- ----- ----- ----- ---- FINAL DIAGN OSIS: Negat wendy for Intra epith elial Lesio n or Israbrianna raman (NIL) . Elect lissette dawson arianna d by Eric Mccain , LITO on 024 at 3:20 PM ----- ----- ----- ----- ----- ----- ----- ----- ----- ----- ----- ----- ----- ----- ----- ----- ----- ---- HPV RESUL TS: HPV mRNA E6/E7 : No HPV mRNA Detec aiden NOTE: This high risk HPV mRNA assay detec ts fourt een high- risk HPV types (16, 18, 31, 33, 35, 39, 45, 51, 52, 56, 58, 59, 66, 68) witho ut diffe renti ation . COMME NT: This speci men was revie wed by a Cytot echno logis t and/o r Patho logis t (as indic ated in this repor t) after evalu ation using the Thinp rep Imagi ng Syste m. CLINI KATELIN INFOR MATIO N: Menst rual Statu s: LMP (if appli cable ): Clini katelin Histo ry/Pr eviou s Pap: Type of Neopl renetta (if appli cable ): Signi fican t Clini katelin Findi ngs: Other Histo ry: Hormo jodi (if appli cable ): PAP EDUCA LEONOR L NOTE: The Pap Test is a scree maxx test with an inher ent false negat wendy rate. Liqui d-bas ed sampl ing may decre ase, but will not elimi juan a, false negat wendy resul ts. A negat wendy resul t does not precl ude the prese nce and/o r devel opmen t of disea se, since the prese nce of abnor mal cells in the sampl e depen ds on the locat ion of the lesio n and sampl ing techn ique. Seth nued regul ar scree maxx is the best metho d of cance r preve ntion . If repor aiden cytol ogic findi ng do not corre late with physi katelin and/o r histo rical findi ngs, furth er inves tigat ion is recom bolivar d, as maitei cynthia guptaed. Not Available [facility] (Lab) [address], [place], [address], 04/28/2024 16:23:29 10/22/20 22 10/21/2022 MAMMO , scree maxx, bilat eral No observ ation record ed. [address], [place], [address], 11/04/2022 14:19:10 11/07/20 22 10/21/2022 MAMMO , scree maxx, bilat eral No observ ation record ed. [address], [place], [address], 11/08/2022 10:51:44 11/07/20 22 10/21/2022 MAMMO , scree maxx, bilat eral No observ ation record ed. [address], [place], [address], 11/08/2022 10:51:44 Result Notes None recorded. Procedures Surgical History Date Name Laterality Status Provider Name and Address Organization Details Recorded Time 022 Vulvar Biopsy completed BRADY Tyler [address], [place], [address], [facility] 08/06/2022 14:15:05 021 completed Jessi Carrillo [facility] 07/22/2022 11:33:45 021 Colonoscopy completed Felicia [facility] 04/26/2024 15:52:02 Caesarean Section completed Jefry ortega [facility] 04/26/2024 09:38:04 Cholecystectomy completed BRADY Triana [address], [place], [address], [facility] 04/26/2024 16:18:13 Removal of eye completed BRADY Abbasi [address], [place], [address], [facility] 04/26/2024 16:18:27 eye reconstruction completed BRADY Tyler [address], [place], [address], [facility] 04/26/2024 16:18:35 Imaging Results Imaging Date Name Status LastModified by Organiz ation Details LastModified Time 10/21/2022 MAMMO, screening, bilateral completed [address] [place] [address], [address], 11/04/2022 14:19:10 10/21/2022 MAMMO, screening, bilateral completed [address] [facility], [place], [address], 11/08/2022 10:51:44 10/21/2022 MAMMO, screening, bilateral completed [address], [address], 11/08/2022 10:51:44 Procedure Notes None recorded. Medical Equipment None Reported. Allergies No known drug allergies Medications Name Sig Start Date Stop Date Status Note LastModified by Organization Details LastModified Time doxycycline hyclate 100 mg capsule TAKE 1 CAPSULE BY MOUTH DAILY 04/26 completed Not Available Not Available Not Available paroxetine 10 mg tablet Take 1 tablet every day by oral route. 05/06 completed Not Available Not Available Not Available lisinopril 20 mg tablet TAKE 1 TABLET BY MOUTH DAILY 04/26 completed Not Available Not Available Not Available prednisone 20 mg tablet 06/22 completed Not Available Not Available Not Available prednisone 5 mg tablet TAKE 1 TABLET BY MOUTH DAILY IN THE MORNING 04/26 completed Not Available Not Available Not Available ciprofloxac in 250 mg tablet TAKE 1 TABLET BY MOUTH EVERY 12 HOURS FOR 5 DAYS 04/26 completed Not Available Not Available Not Available acyclovir 400 mg tablet TAKE 1 TABLET BY MOUTH EVERY DAY 2024 active Not Available Not Available Not Avai lable omeprazole 40 mg capsule,del ayed release TAKE 1 CAPSULE BY MOUTH DAILY 04/26 completed Not Available Not Available Not Available glimepiride 2 mg tablet TAKE 1 TABLET BY MOUTH TWICE DAILY 07/22 completed Not Available Not Available Not Available pantoprazol e 20 mg tablet,jacky yed release TAKE 1 TABLET BY MOUTH DAILY 04/26 completed Not Available Not Available Not Available alprazolam 0.5 mg tablet TAKE 1 TABLET BY MOUTH ONCE 04/26 completed Not Available Not Available Not Available famotidine 20 mg tablet TAKE 1 TABLET BY MOUTH TWICE DAILY 07/22 completed Not Available Not Available Not Available estradiol 0.025 mg/24 hr weekly transdermal patch Apply 1 patch every week by transderm al route. active Not Available Not Available No t Available Softdesk Ultra Test strips USE DIRECTED active Not Available Not Available No t Available cephalexin 500 mg capsule TAKE 1 CAPSULE BY MOUTH TWICE DAILY FOR 7 DAYS 04/26 completed Not Available Not Available Not Available pantoprazol e 40 mg tablet,jacky yed release TAKE 1 TABLET BY MOUTH EVERY MORNING FOR 8 WEEKS 04/26 completed Not Available Not Available Not Available lisinopril 10 mg tablet TAKE 1/2 TABLET BY MOUTH DAILY active Not Available Not Available No t Available progesteron e micronized 200 mg capsule Take 1 capsule every day by oral route. 06/22 completed Not Available Not Available Not Available omeprazole 20 mg capsule,del ayed release TAKE 1 CAPSULE BY MOUTH DAILY active Not Available Not Available No t Available fluticasone propionate 50 mcg/actuati on nasal spray,suspe nsion SHAKE LIQUID AND USE 2 SPRAYS IN EACH NOSTRIL TWICE DAILY 04/26 completed Not Available Not Available Not Available lisinopril 2.5 mg tablet active Not Available Not Available Not Available progesteron e micronized 100 mg capsule Take 1 capsule every day by oral route. active Not Available Not Available No t Available tobramycin 0.3 %-dexametha sone 0.1 % eye drops,suspe nsion SHAKE LIQUID AND INSTILL 1 DROP IN BOTH EYES FOUR TIMES DAILY FOR 10 DAYS 04/26 completed Not Available Not Available Not Available oxycodone 5 mg tablet TAKE 1 TABLET BY MOUTH EVERY 12 HOURS NEEDED FOR PAIN 04/26 completed Not Available Not Available Not Available cholestyram ine (with sugar) 4 gram powder for susp in a packet MIX AND DRINK 1 PACKET BY MOUTH TWICE DAILY WITH MEALS 04/26 completed Not Available Not Available Not Available eszopiclone 2 mg tablet TAKE 1 TABLET BY MOUTH EVERY DAY BEFORE BEDTIME 07/22 completed Not Available Not Available Not Available fenofibrate 160 mg tablet TAKE 1 TABLET BY MOUTH DAILY active Not Available Not Available No t Available 12 Hour Nasal [place] 04/26 completed Not Available Not Available Not Available Fenofibrate 07/22 completed Not Available Not Available Not Available Novofine 32 32 gauge x 1/4 needle USE DAILY DIRECTED FOR VICTOZA 07/22 completed Not Available Not Available Not Available Victoza 3-Chris 0.6 mg/0.1 mL (18 mg/3 mL) subcutaneou s pen injector ADMINISTE R 1.2 MG UNDER THE SKIN DAILY 07/22 completed Not Available Not Available Not Available paroxetine mesylate (menopausal symptoms suppressant ) 7.5 mg capsule active Not Available Not Available Not Available Trulicity 1.5 mg/0.5 mL subcutaneou s pen injector ADMINISTE R 1.5 MG UNDER THE SKIN WEEKLY 06/22 completed Not Available Not Available Not Available Trulicity 0.75 mg/0.5 mL subcutaneou s pen injector 04/26 completed Not Available Not Available Not Available TRUEplus Pen Needle 32 gauge x 5/32 USE DIRECTED DAILY FOR VICTOZA 07/22 completed Not Available Not Available Not Available OneTouch Delica Plus Lancet 30 gauge TEST TWICE DAILY DIRECTED 04/26 completed Not Available Not Available Not Available Slynd 4 mg (28) tablet TAKE 1 TABLET BY MOUTH DAILY 07/22 completed Not Available Not Available Not Available ID NOW COVID-19 Test Kit TEST DIRECTED TODAY 07/22 completed Not Available Not Available Not Available Vitals Date Recorded Body height Body mass index (BMI) Body weight Systolic blood pressure Diastolic blood pressure Provider Name and Address Organization Details Last Updated DateTime 07/22/2022 152.4 cm 27 kg/m2 84671.18 g 116 mm[Hg] 72 mm[Hg] [facility] 2 11:33:32 Date Recorded Body height Body mass index (BMI) Body weight Systolic blood pressure Diastolic blood pressure Provider Name and Address Organization Details Last Updated DateTime 08/06/2022 152.4 cm 27 kg/m2 67863.18 g 111 mm[Hg] 74 mm[Hg] [facility] 2 14:09:32 Date Recorded Body height Body mass index (BMI) Body weight Systolic blood pressure Diastolic blood pressure Provider Name and Address Organization Details Last Updated DateTime 04/26/2024 152.4 cm 19.1 kg/m2 22173.05 g 105 mm[Hg] 66 mm[Hg] [facility] 4 15:48:17 Date Recorded Body height Body mass index (BMI) Body weight Systolic blood pressure Diastolic blood pressure Provider Name and Address Organization Details Last Updated DateTime 05/06/2024 152.4 cm 19.5 kg/m2 19175.24 g 91 mm[Hg] 68 mm[Hg] [facility] 4 13:59:35 Date Recorded Body height Body mass index (BMI) Body weight Systolic blood pressure Diastolic blood pressure Provider Name and Address Organization Details Last Updated DateTime 06/22/2024 152.4 cm 19.9 kg/m2 84550.42 g 132 mm[Hg] 73 mm[Hg] [facility] 4 14:27:42 Social History Question Answer Notes LastModified by Organizat ion Details LastModified Time Tobacco Smoking Status Never [facility] 08/06/2022 13:51:45 Do You Have An Advance Directive? No Information n ot available 07/22/2022 What Is Your Level Of Alcohol Consumption? None Information not available 07/22/2022 Are You Blind Or Do You Have Difficulty Seeing? No Information n ot available 07/22/2022 What Is Your Level Of Caffeine Consumption? Moderate Information not available 07/22/2022 How Much Tobacco Do You Chew? None Information not available 07/22/2022 In The 14 Days Before Symptom Onset, Have You Had Close Contact With A Laboratory-confirm ed COVID-19 While That Case Was Ill? No Information n ot available 07/22/2022 In The 14 Days Before Symptom Onset, Have You Had Close Contact With A Person Who Is Under Investigation For COVID-19 While That Person Was Ill? No Information not available 07/22/2022 Have You Been To An Area Known To Be High Risk For COVID-19? No Information not available 07/22/2022 Are You Deaf Or Do You Have Serious Difficulty Hearing? No Information not available 07/22/2022 What Type Of Diet Are You Following? DIABETIC Information n ot available 07/22/2022 What Is The Highest Grade Or Level Of School You Have Completed Or The Highest Degree You Have Received? 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 No Information not available 07/22/2022 Do You Use Protection During Sex? No Information not available 07/22/2022 Do You Use Your Seat Belt Or Car Seat Routinely? Yes Information not available 07/22/2022 Do You Have Smoke And Carbon Monoxide Detectors In Your Home? Yes Information not available 07/22/2022 How Much Tobacco Do You Smoke? No Information not available 07/22/2022 Do You Feel Stressed (tense, Restless, Nervous, Or Anxious, Or Unable To Sleep At Night)? [id number] Information not available 07/22/2022 Do You Use Any Illicit Or Recreational Drugs? No Information not available 07/22/2022 Do You Use Sunscreen Routinely? No Information not available 07/22/2022 Have You Used IV Drugs? No Information not available 07/22/2022 Sex: Unknown Functional Status Question Answer Note LastModified by Organizat ion Details LastModified Time Do you have difficulty walking or climbing stairs? No Information not available 08/06/2022 Are you able to walk? YESWOREST Information not available 07/22/2022 Are you able to care for yourself? Yes [email or web address] Information not available 08/06/2022 Do you have difficulty dressing or bathing? No [email or web address] Information not available 08/06/2022 What is your exercise level? Occasional Information not available 07/22/2022 Mental Status None recorded. Family History Relationship Description Onset Age of this Age Resolved Age Notes LastModified by Organization Details LastModified Time Maternal Aunt Diabetes mellitus [email or web address] Not available 06/25 11:33:38 Maternal Uncle Diabetes mellitus vschroedter Not available 06/25 11:33:38 Maternal Grandmother Diabetes mellitus vschroedter Not available 06/25 11:33:38 Mother Disorder of thyroid gland vschroedter Not available 06/25 11:33:38 Paternal Aunt Diabetes mellitus vschroedter Not available 06/25 11:33:38 Daughter Anxiety disorder vschroedter Not available 06/25 11:33:38 Daughter Anemia vschroedter Not availa ble 07/22/2022 11:33:38 Paternal Grandmother Malignant tumor of colon llamay Not available 2023 16:50:45 Paternal Grandmother Malignant neoplasm of ovary llamay Not available 2023 11:34:23 Medical History Condition Response Allergies (Food, seasonal, environmental ) N Other N Breast Cancer N Drug/Latex Allergies/Reactions N Blood Transfusion N Dermatologic Disorders N Lung Disease N Defects or Inherited Disease N Breast Problem N Gestational Diabetes N Hematologic disorders N Anesthesia Complications N History of STI N Deep Vein Thrombosis N Polycystic ovary syndrome N Anxiety Disorder N Autoimmune disease N Arthritis N Infertility N Polyps N Acid Reflux (GERD) Y History of abnormal pap N Cancer Y Stroke N Varicosities N Neurologic/Epilepsy N Endometriosis N High Cholesterol N Headaches N Fibromyalgia N Kidney Disease N Heart Problems N Kidney or Bladder Problems N Thyroid Problems N GI Problems N Eating Disorder N Anemia N Art (IVF or FET) N Psychiatric Illness N Ovarian Cancer N Diabetes Y Pulmonary (TB, Asthma) N Hepatitis/Liver Disease N No Past Medical History N Eczema N Urinary Tract Infection N Abuse/Domestic Violence N Asthma N Trauma/Violence N Depression/ depression N Heart Disease N Pre-Eclampsia N Hypertension Y Osteoporosis N Thrombophilias N Gynecological History Statement/Question Response Abnormal Pap Y Date of Last Mammogram Date of LMP On BCP's at Conception? Y N STIs/STDs Y HPV Vaccine Y Colposcopy Current Control Method Menopause Age at First Child 26 If Post Menopausal, Age at Menopause 41 Date of Last Colonoscopy Sexually Active? N Date of DEXA bone scan Age of first menstrual cycle 15 Date of Last Pap Smear Sexual Problems? N LMP Unknown 08/08/2021 N Obstetrics History GPAL:G 2 P 0 0 0 2 Type Value Living 2 Total 2 Past Encounters Encounter ID Performer Location Encounter Start Date Encounter Closed Date Diagnosis/Indication Diagnosis SNOMED-CT Code Diagnosis ICD10 Code Diagnosis Note [id number] BRADY Tyler [place] [address] [address] 07/22/2022 11:21:24 07/22/2022 12:48:43 Menopausal flushing 048227651 N95.1 Screening for malignant neoplasm of breast 996795003 Z12.39 Lesion of vulva 44841777 6 N90.89 Gynecologi c examination 60059904 Z01.419 Take Calcium with Vitamin D 12-1500mg daily. Do monthly self breast exams. It is advised to get annual flu shot in the fall and she could obtain at [facility] or [facility]. If you haven't received the Tdap vaccine in the last 10 years you should obtain one as well. Have mammogram yearly, bone density every 2-3 years and colonoscop y every 5-10 years depending on findings and history. Engage in daily exercise of low impact aerobic exercise 45-60 minutes 4-5 times weekly. Avoid tobacco and illicit drugs as well as using moderation with alcohol intake less than 1-2 8 oz beverages daily. This lifestyle behavior pattern will lead to less health conditions and longer life span. If BMI greater than 25 weight watchers or dietary consult advised. Questions have been answered. Patient appears to understand instructio ns, but if you have any further questions call or respond to this email WWEMedical hx : Diabetes, HTN, rhabdomyos arcoma as childNo menses for the past 10 years, was on slynd BC until 2 weeks ago. States she had hormone levels done 5 years ago that suggested menopausal status. She has been having some hot flashes since stopping the slynd. She would like hormone labs done today.Labs ordered, we discussed lifestyle modificati ons to help with hot flashes, discussed medication options. She will consider.L ast pap around 2018, no hx of abnormal paps per patientPap done todaySTI testing declinedGe netic testing discussedM ammogram order givenUTD with colonoscop y, follows with PCP on thisOn exam, at top of vulva, vulvar lesion noted. About 1mm in size, round, red. No open areas, no drainage, no tenderness . 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 [id number] BRADY Tyler [place] [address] [address] 08/06/2022 13:51:37 08/06/2022 14:41:49 Lesion of vulva 933484863 N90.89 Vulvar biopsy performed in normal fashion without any immediate complicati ons - see procedure note.Patie nt to apply OTC antibiotic ointment to biopsy site twice a day until healedTo call the office with any bleeding, discharge, pain, or signs of infectionR TC in 2 weeks for f/u check [id number] BRADY Tyler [place] [address] [address] 04/26/2024 15:42:50 04/26/2024 16:57:11 Gynecologic examination 94123226 Z01.419 WWEpap updateddec lined STI screenmamm ogram order givencolon oscopy - has scheduledr outine labs UTD/PCP Take Calcium with Vitamin D daily. Do monthly self breast exams. It is advised to get annual flu shot in the fall and she could obtain at [facility] or [facility]. If you haven't received the Tdap vaccine in the last 10 years you should obtain one as well. Have mammogram yearly and stay UTD on colon cancer screening Engage in regular exercise. Avoid tobacco and illicit drugs. This lifestyle behavior pattern will lead to less health conditions and longer life span. If BMI greater than 25 dietary consult advised. Questions have been answered. Patient appears to understand instructio ns, but if you have any further questions call or respond to this email Screening for malignant neoplasm of breast [id number] Z12.39 Menopausal flushing 1983 15795 N95.1 management options reviewedli festyle modificati ons discussedp t opts to trial braulioelle, rx sent, r/b/a reviewedpr ecautions discussedm ed check in 6-8 weeks Time spent in visit is a total of 30 mins with at least 50% of visit consisting of counseling and review of plan of care. Recurrent genital herpes simplex 957339266 A60.00 desires to continue suppressiv e therapyrx sent, r/b/a reviewed [id number] BRADY Tyler [place] [address] [address] 05/06/2024 13:56:11 05/06/2024 17:21:35 Menopausal flushing 223011240 N95.1 All options for management of vasomotor symptoms discusseds he would like to proceed with HRT (estrogen transderma l and oral progestero ne) - R/B/A reviewed. Pt agrees to these risk and verbalized understand ing. Med check in 6-8 weeks. Pt aware of need to take daily progestero ne while using transderma l estrogen patches. We discussed Menopausal Hormone therapy (MHT) for women with intact uterus with the goals of reliving vaso-motor sx's using estrogen/p rogestin therapy (EPT) using lowest doses for shortest duration in women 40-59yo.Co ntraindica tions include: Hx of DVT or thrombolic events, High cholestero l, Hx of breast cancer, known CHD, active liver disease, unexplaine d vag bleeding, high risk endometria l cancer, TIA.Side effects can include but are not limited to: Irregular vag bleeding,, breast tenderness , nausea, weight changes, libido changes, nausea.Adv erse Rxn: Elevated BP migraine w/ visual changes, breast cancer dx, [place]/stroke, DVT/PE, Endometria l cancer. Please contact office with any new or worsening side effects or adverse reactions. Or if a medical emergency please go to nearest ED/[facility] for further evaluation . Time spent in visit is a total of 30 mins with at least 50% of visit consisting of counseling and review of plan of care. [id number] BRADY Tyler [place] [address] [address] 06/22/2024 14:20:47 06/22/2024 15:29:25 Menopausal flushing 519547794 N95.1 Hot flashes have resolved!w ill continue estrogen transderma l at current dose, we discussed decreasing prometrium to 100mg nightly d/t fatiguerx sent, r/b/a reviewed, precaution s discussed, questions answeredme d check recommende d in 3-4 months Time spent in visit is a total of 20 mins with at least 50% of visit consisting of counseling and review of plan of care. Health Concerns Section Related Observation LastModified by Organization Detai ls LastModified Time None Recorded Concern Status LastModified by Organization Details LastModified Time None Recorded Advance Directives Directive N: Payers Encounter Date Sequence Insurance Name Policy Number Policy Hernandez Covered Member ID Hernandez Member ID Guarantor Name 07/22/2022 1 [facility] ON OR AFTER 05/24/21 (MEDICAID REPLACEMENT - HMO) Le Mas [id number] Le Mas 08/06/2022 1 [facility] ON OR AFTER 05/24/21 (MEDICAID REPLACEMENT - HMO) Le Mas [id number] Le Mas 04/26/2024 1 [facility] ON OR AFTER 05/24/21 (MEDICAID REPLACEMENT - HMO) Le Mas [id number] Le Mas 05/06/2024 1 [facility] ON OR AFTER 05/24/21 (MEDICAID REPLACEMENT - HMO) Le Mas [id number] Le Mas 06/22/2024 1 [facility] ON OR AFTER 21 (MEDICAID REPLACEMENT - HMO) Le Mas [id number] Le Chace Notes Date Note Type Note Provider Name and Address Organization Details Recorded Time 07/22/2022 text/html Annual [employer] Post-MenopausalReport ed bypatient.Menopausal Symptoms:no menopausal symptoms; normal vaginal lubrication Vaginal Bleeding:history of menopause having occurred; no history of post menopausal bleeding Urinary Symptoms:no hematuria; no incontinence; no nocturia; no urinary frequency Vulva:no genital lesion; no vulvar atrophy Vagina:normal vaginal discharge; no vaginal atrophy Breast:no breast lump; no nipple discharge; no breast pain Sexual Complaints:no sexual complaints Psychological Symptoms:no depression; no anxiety Preventive Measures:encourage regular mammograms starting age 40; encourage self breast examination; encourage regular exercise; encourage no tobacco use; needs to schedule mammogram; history of recent colonoscopy BRADY Tyler [address], [place], [address], [facility] 07/22/2022 12:40:13 08/06/2022 text/html 52yo Presents fo r vulvar biopsy following lesion noted at [facility] BRADY Tyler [address], [place], [address], [facility] 08/06/2022 14:37:35 04/26/2024 text/html Annual [employer] Post-MenopausalReport ed bypatient.Menopausal Symptoms:normal vaginal lubrication;hot flashes Vaginal Bleeding:history of menopause having occurred; no history of post menopausal bleeding Urinary Symptoms:no hematuria; no incontinence; no nocturia; no urinary frequency Vulva:no genital lesion; no vulvar atrophy Vagina:normal vaginal discharge; no vaginal atrophy Breast:no breast lump; no nipple discharge; no breast pain Sexual Complaints:no sexual complaints Psychological Symptoms:no depression; no anxiety Preventive Measures:encourage regular mammograms starting age 40; encourage self breast examination; encourage regular exercise; needs to schedule mammogram; needs to schedule colonoscopyNotes:54yo [id number] yolanda since age 46 - no bleeding sinceno h/o abnormal papslast pap 06/2022: nilm, HPV (-)mammogram last olonoscopy 2020 - has repeat scheduled this year d/t fam hxtakes acyclovir daily for genital HSV suppression - needs refills, wants to continue (states will get outbreak if not taking daily) hot flashes nightly, trouble sleeping medical hx: 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 05/06/2024 17:06:54 06/22/2024 text/html 54yopresents for med checkstarted transdermal estrogen (0.025mg/24 hr weekly patches and daily prometrium 200mg). Hot flashes have completely resolved! Feeling so much better feels as if she is able to enjoy everyday activitieshas noticed increased fatigue, switched to taking the prometrium at bedtime which has helped but still feels as if she has noticed increased daytime sleepiness BRADY Tyler [address], [place], [address], [facility] 06/22/2024 15:00:10 OBGyn Episode Ob Episode Information Episode Created Date Number of Fetuses Patient Bloodtype Patient rh Status Prepregnancy Weight lbs Domestic Partner Domestic Partner Phone Father Name Engraver Block Status 07/22/20 22 1 CLOSED Fetus Data First Name Last Name Admitted to NICU Weight (g) Sex Living Outcome Pediatric Complications Fetus ID Race Codes Race Delivery Type [phone] F [id number] Repeat Eros Calculation Initial Eros Date Initial Exam Date Initial Exam Provider Initial Ultrasound Date Last Menstrual Period Date Ultra Sound Weeks Gestation 0 Eighteen To Twenty Week Eros Update Ultra Sound Date Fundal Height At Umbil Quickening Date Ultra Sound Latest Weeks Gestation Final Eros Confirmed By Final Eros Confirmed Date Final Eros Date Ultra Sound Latest Days Gestation 0 0 Menstrual History Last Menstrual Date Menses Monthly On Bcp Conception Prior Menses Frequency Hcg Plus Date Menarche Onset Age Delivery Information Delivery Date Delivery Type Labor Anesthesia Weeks Gestation Incision Type Labor Labor Length Hrs Delivered By Post Complications Tubal Sterilization Discharge Date Comments 2 Discharge Information Feeding Method Contraceptive Method Maternal HG B and HCT Levels Ob Episode Information Episode Created Date Number of Fetuses Patient Bloodtype Patient rh Status Prepregnancy Weight lbs Domestic Partner Domestic Partner Phone Father Name Engraver Block Status 07/22/20 22 1 CLOSED Fetus Data First Name Last Name Admitted to NICU Weight (g) Sex Living Outcome Pediatric Complications Fetus ID Race Codes Race Delivery Type 3175.14 [phone] [id number] Primary Eros Calculation Initial Eros Date Initial Exam Date Initial Exam Provider Initial Ultrasound Date Last Menstrual Period Date Ultra Sound Weeks Gestation 0 Eighteen To Twenty Week Eros Update Ultra Sound Date Fundal Height At Umbil Quickening Date Ultra Sound Latest Weeks Gestation Final Eros Confirmed By Final Eros Confirmed Date Final Eros Date Ultra Sound Latest Days Gestation 0 0 Menstrual History Last Menstrual Date Menses Monthly On Bcp Conception Prior Menses Frequency Hcg Plus Date Menarche Onset Age Delivery Information Delivery Date Delivery Type Labor Anesthesia Weeks Gestation Incision Type Labor Labor Length Hrs Delivered By Post Complications Tubal Sterilization Discharge Date Comments 5 Discharge Information Feeding Method Contraceptive Method Maternal HG B and HCT Levels
--- OUTSIDE RECORDS SUMMARY | 2025-03-26 11:40 | XMS_ITS | Clinical Summary ---
Author Organization [facility] Address [address] [place] [address] Phone Care Team Providers Care Vascular Manager Name Role Phone Jay Hickman MD Unavailable [phone] Ginette Kathleen APRN Primary Care Provider [phone] Allergies No known active allergies Medications acyclovir [...] DAILY 1 Active Lancets (OneTouch Delica Plus [id number]) [facility] [place]LOOD SUGAR TWICE DAILY 1 Active [...] Department Care Team Description 12/30/2024 3:50 PM SUPERVISOR BROADLOOM - 12/30/2024 8:12 PM [employer]OR [employer] Emergency [facility] Emergency [address] [place] [address] Lito Camarena MD Furry, Craig [...] Comments Blood Pressure 138/72 12/30/2024 7:51 PM [employer] Pulse 72 12/30/2024 2:06 PM [employer] Temperature 37.3 C (99.1 F) 12/30/2024 2:06 PM [employer] [employer] Respiratory Rate 16 12/30/2024 2:06 PM [employer] [employer]LO[employer] Oxygen Saturation 99% 12/30/2024 2:06 PM [employer] Inhaled Oxygen Concentration - - Weight 49.9 kg (110 lb) 12/30/2024 2:06 PM [employer] BR[facility]LO[employer] Height 152.4 cm (5') 12/30/2024 2:06 PM [employer] Body Mass Index 21.48 12/30/2024 2:06 PM [employer]OR [employer] Plan of Treatment Health Maintenance Due Date [...] BY ABNORMAL RESULTS STAT 12/30/2024 5:35 PM [employer]PERVISOR BR[employer] XR CHEST SINGLE VIEW PORTABLE STAT 12/30/2024 5:13 PM [employer] BR[employer] CBC WITH AUTO DIFFERENTIAL STAT 12/30/2024 2:54 PM [employer] MAGNESIUM (MG) STAT 12/30/2024 2:54 PM [employer] HEMOGLOBIN A1C W/ ESTIMATED GLUCOSE STAT 12/30/2024 2:54 PM [employer] BR[employer] CMP (COMPREHENSIVE METABOLIC PANEL) STAT 12/30/2024 2:54 PM [employer]OR BRO[facility]OM COMPLETE BLOOD COUNT (CBC) WITH DIFF STAT 12/30/2024 2:54 PM [employer]OR BR[employer]OM RSV,SARS-COV-2,INFLUE NZA A&B BY PCR STAT 12/30/2024 2:14 PM [employer] BRO[employer] EKG 12 LEAD STAT 12/30/2024 2:13 PM [employer] POCT GLUCOSE STAT 12/30/2024 2:09 PM [employer]OR BRO[employer] EKG SCAN 12/30/2024 12:00 AM [employer]OR BRO[employer]OM UJAN SCREENING BILATERAL DIGITAL W CAD W KELLEY Routine 07/17/2021 4:16 PM CDT Breast cancer screening by mammogram HEPATITIS PANEL ACUTE (AHP) Routine 05/16/2021 12:58 PM CDT Muscle weakness from Last 3 Months or Most Recently Relevant to Health Maintenance Results * (ABNORMAL) URINALYSIS REFLEX IF INDICATED BY ABNORMAL RESULTS (12/30/2024 5:35 PM SUPERVISOR BROADLOOM) SPECIFIC GRAVITY 1.030 1.003 - 1.030 12/30/2024 6:39 PM [employer]PERVISOR BROAD[employer]OM [facility] URINE PH 5.0 5.0 - 9.0 12/30/2024 6:39 PM [employer]PERVISOR BRO[employer] WBC ESTERASE Negative Negative 12/30/2024 6:39 PM [facility]PERVISOR BROAD[employer]OM [facility] NITRITE Negative Negative 12/30/2024 6:39 PM [facility] BRO[employer] PROTEIN, RANDOM URINE 30 mg/dL(A) Negative 12/30/2024 6:39 PM [facility]OR BRO[facility] URINE GLUCOSE, QUAL Negative Negative 12/30/2024 6:39 PM [facility]PERVISOR BROADLOOM [facility] URINE KETONES Negative Negative 12/30/2024 6:39 PM [facility] UROBILINOGEN Normal Normal mg/dL 12/30/2024 6:39 PM [facility] URINE BLOOD Negative Negative shakeel/ul 12/30/2024 6:39 PM [facility] URINALYSIS COLOR Yellow 12/30/19 6:39 PM [facility] [employer] URINALYSIS CLARITY Clear 12/30/2024 6:39 PM [facility] [employer] WBC (Urine) 0-5 Negative, 0-5 /hpf 12/30/2024 6:39 PM [facility]OR [employer] URINE RBC'S 0-2 Negative, 0-2 /hpf 12/30/2024 6:39 PM [facility]OR [employer] EPITHELIAL CELLS Small amount /lpf 2024 6:39 PM [facility] [employer] BACTERIA, URINE Few(A) Negative /hpf 12/30/2024 6:39 PM [facility] URINE MUCOUS Few 12/30/2024 6:39 PM [employer] [employer] CRYSTALS Calcium oxalate 12/30/2024 6:39 PM [employer]OR [employer] Urine URINE SPECIMEN / Unknown Non-Phlebotomy Collection / Unknown 12/30/2024 5:35 PM [employer] 12/30/2024 5:54 PM [employer] BRO[employer] us Lito Camarena MD URINE ORDERABLES Final Result [facility] [address] [place] [address] * XR CHEST SINGLE VIEW PORTABLE (12/30/2024 5:13 PM SUPER[employer] BR[employer]) Anatomical Region Laterality Modality Chest N/A Digital Radiogra phy 12/30/2024 5:45 PM [employer]OR [employer] Impressions 12/30/2024 5:48 PM [employer]OM IMPRESSION: No acute cardiopulmonary abnormality. Narrative 12/30/2024 5:48 PM [employer]PER[employer]OR [employer]LO[employer] EXAM DESCRIPTION: XR CHEST SINGLE VIEW PORTABLE [...] Prashant Freeman M.D. KT: SHONNA Report ID: [id number] Reading Location: [id number] Procedure Note Prashant Freeman MD - 12/30/2024 [...] Prashant Freeman M.D. KT: KT Report ID: [id number] Reading Location: [place] [address] IMPRESSION: No acute cardiopulmonary abnormality. Lito Camarena MD IMG DIAGNOSTIC ORDERAB LES Final Result * Hemoglobin A1C w/ Estimated Glucose (12/30/2024 2:54 PM SUPERVISOR BRO[employer]LOOM) Pathologist [facility] HGB-A1C 6.0 4.0 - 6.0 % 12/30/2024 5:23 PM [facility]PER[facility]OR BRO[facility] Est Average Glucose 125.5 mg/dL 12/30/2024 5:23 PM [facility]PER[facility]OR BRO[facility]OM [facility] Blood Venipuncture / Unknown 12/30/2024 2:54 PM [employer]PER[employer]OR BRO[employer]LOOM 12/30/2024 3:05 PM [employer]OR BRO[facility]LOOM Narrative [facility] - 12/30/2024 5:23 PM [employer] [employer] HEMOGLOBIN A1C: DIABETIC PATIENTS: WELL-CONTROLLED: 6.2 - 7.0 INTERMEDIATE WELL-CONTROLLED: 7.0 - 9.0 POORLY-CONTROLLED: >9.0 Specimens containing greater than 5% of Hemoglobin F may result in lower than expected % HbA1C results. Lito Camarena MD CHEMISTRY ORDERABLES F inal Result [facility] [address] [place] [address] * CBC with Auto Differential (12/30/2024 2:54 PM SUPERVISOR BRO[employer]LOOM) Pathologist [facility] WBC 8.31 4.00 - 12.00 10(3)/mcL 12/30/2024 3:11 PM [employer]PER[facility]OR BRO[employer] RBC 4.58 3.80 - 5.30 10(6)/[facility] 12/30/2024 3:11 PM [facility] HEMOGLOBIN (HGB) 12.9 12.0 - 15.8 g/dL 12/30/2024 3:11 PM [facility] HEMATOCRIT (HCT) 39.1 36.0 - 47.0 % 12/30/2024 3:11 PM [facility] MCV 85.4 82.0 - 96.0 fL 12/30/2024 3:11 PM [facility] MCH 28.2 26.0 - 34.0 pg 12/30/2024 3:11 PM [facility] MCHC 33.0 31.0 - 36.0 g/dL 12/30/2024 3:11 PM [facility] PLATELET COUNT 342 140 - 440 10(3)/[facility] 12/30/2024 3:11 PM [facility] RDW 13.5 11.8 - 15.5 % 12/30/2024 3:11 PM [facility] MPV 10.3 9.7 - 12.4 fL 12/30/2024 3:11 PM [facility] NEUTROPHILS 69.3 47.0 - 73.0 % 12/30/2024 3:11 PM [facility] LYMPHOCYTES 21.5 18.0 - 42.0 % 12/30/2024 3:11 PM [facility] MONOCYTES 7.0 4.0 - 12.0 % 12/30/2024 3:11 PM [facility] EOSINOPHILS 1.8 0.0 - 5.0 % 12/30/2024 3:11 PM [facility] BASOPHILS 0.4 0.0 - 1.0 % 12/30/2024 3:11 PM [facility] ABSOLUTE NEUTROPHILS 5.76 1.60 - 7.70 10(3)/mcL 12/30/2024 3:11 PM [facility] ABSOLUTE LYMPHOCYTES 1.79 1.30 - 3.20 10(3)/mcL 12/30/2024 3:11 PM [facility]OR BRO[employer]LO[facility] ABSOLUTE MONOCYTES 0.58 0.20 - 1.00 10(3)/[facility] 12/30/2024 3:11 PM [facility] BR[facility] ABSOLUTE EOSINOPHIL 0.15 0.00 - 0.40 10(3)/[facility] 12/30/2024 3:11 PM [facility]OR BRO[facility]LOOM [facility] ABSOLUTE BASOPHILS 0.03 0.00 - 0.10 10(3)/[facility] 12/30/2024 3:11 PM [facility]OR BRO[facility]LOOM [facility] NRBC PER 100 WBC 0 12/30/19 25 3:11 PM [facility]PER[facility]OR BRO[facility]LOOM [facility] Blood Venipuncture / Unknown 12/30/2024 2:54 PM [employer]LOOM 12/30/2024 3:05 PM [employer]LOOM Lito Camarena MD HEMATOLOGY ORDERABLES Final Result Performing Organization Address City/[facility]/ZIP Co de Phone Number [facility] [address] [place] [address] * Magnesium (12/30/2024 2:54 PM SUPERVISOR BROADLOOM) Pathologist [facility] MAGNESIUM 2.2 1.6 - 2.6 mg/dL 12/30/2024 5:18 PM [facility]OR BRO[employer]LOOM [facility] Blood Venipuncture / Unknown 12/30/2024 2:54 PM [employer] BRO[employer]LOOM 12/30/2024 3:05 PM [employer]LOOM Lito Camarena MD CHEMISTRY ORDERABLES F inal Result [facility] [address] [place] [address] * (ABNORMAL) CMP (Comprehensive Metabolic Panel) (12/30/2024 2:54 PM SUPERVISOR BRO[employer]LOOM) SODIUM 145 136 - 145 mmol/L 12/30/2024 3:29 PM [facility]OR BRO[facility]LO[facility] POTASSIUM 4.0 3.5 - 5.1 mmol/L 12/30/2024 3:29 PM [facility] CHLORIDE 109(H) 98 - 107 mmol/L 12/30/2024 3:29 PM [facility] CO2, VENOUS 27 22 - 30 mmol/L 12/30/2024 3:29 PM [facility] ANION GAP 13.0 <18.0 mmol/L 12/30/2024 3:29 PM [facility] GLUCOSE 98 70 - 99 mg/dL 12/30/2024 3:29 PM [facility] BUN 21(H) 10 - 20 mg/dL 12/30/2024 3:29 PM [facility] CREATININE, BLOOD 0.81 0.60 - 1.00 mg/dL 12/30/2024 3:29 PM [facility] BUN/CREATININE RATIO 26(H) 12 - 20 ratio 12/30/2024 3:29 PM [facility] TOTAL PROTEIN 7.3 6.0 - 8.0 g/dL 12/30/2024 3:29 PM [facility] ALBUMIN 4.4 3.5 - 5.0 g/dL 12/30/2024 3:29 PM [facility] A/G RATIO 1.5 1.0 - 2.2 12/30/2024 3:29 PM [facility] CALCIUM 10.5 8.7 - 10.5 mg/dL 12/30/2024 3:29 PM [facility] T BILI 0.3 0.2 - 1.2 mg/dL 12/30/2024 3:29 PM [facility] SGOT (AST) 25 6 - 42 U/L 12/30/2024 3:29 PM [facility] SGPT (ALT) 27 6 - 55 U/L 12/30/2024 3:29 PM [facility] ALKALINE PHOSPHATASE 43 40 - 150 U/L 12/30/2024 3:29 PM [facility] GFR, ESTIMATED >60 >=60 12/30/2024 3:29 PM [facility]OR [employer]LO[employer] [facility] Comment: Creatinine Clearance is the preferred criteria for selecting drug dose adjustments in renally impaired patients. The GFR is provided as additional pertinent clinical information. GFR is reported in mL/min/1.73 sq m. Calculation based on the Chronic Kidney Disease Epidemiology Collaboration (CKD- EPI) equation refit without adjustment for race. GFR, EST. >60 >=60 025 3:29 PM [facility]PERVISOR BRO[employer]LOOM [facility] GFR, EST. NONAFRICAN >60 >=60 12/30/2024 3:29 PM [facility]OR BRO[employer]LOOM [facility] Blood Venipuncture / Unknown 12/30/2024 2:54 PM [employer]OR [employer]LOOM 12/30/2024 3:05 PM [employer]LOOM Lito Camarena MD CHEMISTRY ORDERABLES F inal Result Performing Organization Address City/[facility]/ZIP Co de Phone Number [facility] [address] [place] [address] * RSV,SARS-COV-2,INFLUENZA A&B BY PCR (12/30/2024 2:14 PM [employer]LO[employer]) FLU A Negative Negative, Error 12/30/2024 3:23 PM [facility]OR [facility]O[employer]LO[facility] FLU B Negative Negative 12/30/2024 3:23 PM [facility]OR [employer] RESP SYNC VIRUS Negative Negative 3:23 PM [facility]OR BR[facility] [facility] SARSCOV2 NOT DETECTED (Reference Range for this test is Not Detected) 12/30/2024 3:23 PM [employer]OR BRO[employer]LO[employer] [facility] Comment:This test was perfor med by a Reverse Analyst Microbiology Lab PCR Method. Swab NASOPHARYNGEAL SWAB / Unknown Non-Phlebotomy Collection / Unknown 12/30/2024 2:14 PM [employer]LO[facility] 12/30/2024 2:38 PM [employer]OR [employer]LOOM Lito Camarena MD MICROBIOLOGY - GENERAL ORDERABLES Final Result [facility] [address] [place] [address] * EKG 12 LEAD (12/30/2024 2:13 PM [employer]) Ventricular Rate 80 BPM EXTERNAL EKG Atrial Rate 80 BPM EXTERNAL EKG P-R Interval 160 ms EXTERNAL EKG QRS Duration 70 ms EXTERNAL EKG Q-T Duration 378 ms EXTERNAL EKG QTC CALCULATION 435 ms EXTERNAL EKG P [place] 72 degrees EXTERNAL EKG R [place] 7 degrees EXTERNAL EKG T [place] 62 degrees EXTERNAL EKG 12/30/2024 2:13 PM [employer] Impressions EXTERNAL EKG - 01/03/2025 10:38 AM [employer]PER[employer]OR [employer]OM Normal sinus rhythm Normal ECG When compared with ECG of 28-OCT-2024 18:07, No significant change was found Confirmed by Phoenix Moeller ([id number]) on 01/03/2025 10:37:57 AM Narrative Procedure Note Phoenix Moeller MD - 01/03/2025 IMPRESSION: Normal sinus rhythm Normal ECG When compared with ECG of 28-OCT-2024 18:07, No significant change was found Confirmed by Phoenix Moeller ([id number]) on 01/03/2025 10:37:57 AM us Lito Camarena MD IMG ECG ORDERABLES Fin al Result Performing Organization Address [facility] Co de Phone Number EXTERNAL EKG * POCT Glucose (12/30/2024 2:09 PM SUPERVISOR BROADLOOM) Pathologist [facility] GLUCOSE,BEDSIDE POCT 96 70 - 99 mg/dL 12/30/2024 2:14 PM [facility]OR BR[facility] Blood 12/30/2024 2:09 PM [employer]OR [employer]LO[employer] 12/30/2024 2:14 PM [employer]PER[employer]OR BRO[employer]LO[employer] us None Provider POINT OF CARE TESTING Final Resu lt Performing Organization Address [facility] Co de Phone Number [facility] [address] [place] [address] * EKG SCAN (12/30/2024 12:00 AM [employer]PER[employer]OR BRO[employer]LOOM) 12/30/2024 us Provider Scan IMG ECG ORDERABLES [...] copy. Current study was also evaluated with [employer] version 7.2. 2D digital mammographic views, as well as 3D digital tomosynthesis were performed in the CC and MLO projections. CLINICAL: Routine screening. Patient has no complaints. Personal history of rhabdomyocarcinoma of the eye. No family history of breast cancer. COMPARISONS: Comparison is made to exams dated: 06/29/2019 and 01/08/2019 [facility]. BREAST TISSUE:The tissue of both [...] exam. Electronically signed by: Manda welch/breezy:08/02/2021 14:16:20 Material Chaser(s): Ruben Lemon)(M), [facility] letter sent: Normal Exam Reading location: [...] made to exams dated: 06/29/2019 and 01/08/2019 [facility]. BREAST TISSUE:The tissue of both [...] exam. Electronically signed by: Manda welch/breezy:08/02/2021 14:16:20 Material Chaser(s): Ruben Lemon)(Missy), [facility] letter sent: Normal Exam Reading location: [facility] BI-RADS: 2 Benign us Alcon Davila MD IMG MAMMO ORDERABLES Final Resul t * HEPATITIS PANEL ACUTE (AHP) (05/16/2021 12:58 PM CDT) HEPATITIS A IGM ANTIBODY NON DETECTED NON DETECTED [facility] ARCH [id number] B 05/16/2021 10:26 PM CDT [facility] Comment: IGM Antibodies to HAV not detected. Does not exclude early acute or recovered HAV infection. HEP B CORE AB (IGM) NON DETECTED NON DETECTED [facility] ARCH [id number] B 05/16/2021 10:26 PM CDT [facility] Comment:IGM anti-HBC not det ected. Does not exclude the possibility of exposure to or infection with HBV. HEPATITIS B SURFACE ANTIGEN NON DETECTED NON DETECTED [facility] ARCH [id number] B 05/16/2021 10:26 PM CDT [facility] Comment:A nonreactive test r esult does not exclude the possibility of exposure to or infection with Hepatitis B virus. A nonreactive test result in individuals with prior exposure to hepatitis B may be due to antigen levels below the detection limit of this assay or lack of antigen reactivity to the antibodies in this assay. hepatitis C antibody 0.10 <1 S/CO [facility] ARCH [id number] B 05/16/2021 10:26 PM CDT [facility] Comment: Signal/Cutoff ratio < 0.79 is Nondetected Signal/Cutoff ratio 0.80-0.99 is Grayzone Signal/Cutoff ratio > 0.99 is Detected Supplemental assays are recommended if signal/cutoff ratio is >/=1.00. Signal/cutoff ratio result >/= 5.00 is 97% predictive of positivity for recombinant immunoblot assay (RIBA) and will be reported to the [place] Department [facility] Public [facility] as required. Blood Venipuncture / Unknown 05/16/2021 12:58 PM CDT 05/16/2021 2:18 PM CDT us Alcon Davila MD HEMATOLOGY ORDERABLES Final Resu lt [facility] [address] [place] [address], from Last 3 Months or Most Recently Relevant to Health Maintenance Insurance [id number] Care Teams Vascular Manager Relationship Specialty Start Date End Date Ginette Kathleen APRN [address] [place] [address] PCP - General Advanced Practice Nurse 10/28/24 Jay Hickman MD [address] [place] [id number] General Surgery 08/19/16
--- OUTSIDE RECORDS SUMMARY | 2025-03-26 11:40 | XMS_ITS | Data Portability ---
Author Organization [facility] ARRONFlash Address [address] [place] [address] Assessment Encounter Date Assessment Date Assessment LastModified by Organization Details LastModified Time 12/15/2020 12/15/2020 Verbal consent for telephone visit was obtained and phone call encounter lasted for approximately 30 min including pre/post visit charting. Not available 12/15/2020 14:38:41 Plan of Treatment Reminders Order Date Submit Date Provider Last Modified By Organization Details Last Modified Time Details Appointments None recorde d. Lab amylase + lipase, serum 2020 021 [facility], [address] [facility], [address], [place], [address], 16:10:32 celiac disease compreh ensive panel, serum 2020 021 [facility], [address] [facility], [facility] [address], [place], [address], 16:10:29 food allerge n panel, serum 2020 021 [facility], [address], [address], [place], [address], 16:10:35 HbA1c (hemogl obin A1c), blood 2020 021 [facility], [address], [address], [place], [address], 16:10:33 CMP, serum or plasma 2020 021 [facility], [address], [address], [place], [address], 1 16:10:31 microal bumin, urine 2020 021 [facility], [address], [address], [place], [address], 1 16:10:34 TSH + free T4, serum 2020 021 [facility], [address], [address], [place], [address], 1 16:10:30 vitamin D, 25-hydr oxy, total, serum 2020 021 [facility], [address], [address], [place], [address], 1 16:10:33 CBC w/ auto diff 2020 021 [facility], [address], [address], [place], [address], 1 16:10:31 CMP, serum or plasma 2019 020 [facility], [address], [address], [place], [address], 0 17:10:17 CBC 2019 020 [facility], [address], [address], [place], [address], 0 17:10:18 TSH, serum or plasma 2019 020 [facility], [address], [address], [place], [address], 0 17:10:20 lipid panel, serum 2019 [facility], [address] [facility], [address], [place], [address], 0 17:10:19 HbA1c (hemogl obin A1c), blood 2019 020 JAZZY In-Office Order, Internal Use Only DO Not Attach Compendium DO Not Attach Compendium, Do Not Delete/merge, [id number] 0 15:57:36 Referral gastroe nterolo gist referra l - Please call pt to alexsandra morejon appoint ment, Thank you 2020 021 tracy Rowan, [address] [facility] , [facility] [address] [facility] [address], [address], 1 16:00:06 neurolo gist referra l 2019 020 michelle Parra Rai, 4 [facility] , [facility] [address], [place], [address], 0 11:26:08 Procedures None recorde d. Surgeries None recorde d. Imaging US, abdomen 2020 021 JAZZYBHARGAV Butler (Radiology), 1 [facility] [place], [address], 1 12:53:53 XR, knee, 3 view 2020 021 JAZZYBHARGAV Butler (Radiology), [address] [place], [address], 1 12:55:14 MRI, brain, w/o contras t [facility] [address] [place], [address], 0 11:11:12 Medication Orders metform in 500 mg tablet 2020 021 i[id number], [address], [place], [place], [id number], 1 15:57:46 fenofib rate 160 mg tablet 2019 020 [id number], [address], [place], [place], [id number], 0 15:46:13 Patient TargetsNo targets recorded. Patient Instructions Encounter Date Encounter Id Patient Instructions Last Modified By Organization Details Last Modified Time 10/04/2020 [id number] abdominal pain: care instructions jnanney Not available 10/04/2020 15:44:22 watch for patterns and fu in 2 weeks jnanney Not available 10/04/2020 15:44:22 12/15/2020 [id number] learning about high blood sugar Not available 12/15/2020 14:35:28 Bloating: Increase clear fluids. If pain increases or if fever, go to ER. May need to f/u with GI if persists correction. Keep log of foods/symptoms. May try gas x or beano. Knee: Rest- Rest your injured body part. Ice Apply a cold gel pack, bag of ice, or bag of frozen vegetables every 1 to 2 hours, for 15 minutes each time. Put a thin towel between the ice (or other cold object) and your skin. Use the ice (or other cold object) for at least 6 hours after your injury. Some people find it helpful to ice longer, even up to 2 days after their injury. Compression Compression basically means pressure. You want to have slight pressure by having it wrapped in an elastic compression bandage. It's important that you do not use too much pressure and cut off the blood flow to body part. Elevation Elevation means you should keep your injury body part raised up above the level of your heart. Not available 12/15/2020 14:41:21 dwp labs/imaging needed, plan pending results Not available 12/15/2020 14:41:36 01/18/2021 [id number] learning about high blood sugar Not available 01/18/2021 15:09:41 high cholesterol : care instructions Not available 01/18/2021 15:09:41 Work on decreasing carbs, white flour, pasta, sugars. Continue to work on diet and decrease A1C to < 7 with fasting glucose 100. Need to see eye dr. each year for dilated eye exam. Increase activity level to get exercise most days of the week. Work on eating more fresh fruit, veggies and lean protein and less packaged foods. Cut back on the fatty foods, add fish oil or omega three fatty acids; red yeast rice may also help. Drink more water! Low salt diet. Take all medications as prescribed. Keep appointments with PCP and all specialists. Not available 01/18/2021 18:00:01 f/u 3 months DWP barriers to care: none Not available 01/18/2021 15:10:29 02/14/2021 [id number] learning about swallowing problems Not available 02/14/2021 16:04:15 learning about high blood sugar Not available 02/14/2021 16:04:15 Continue to work on diet and decrease A1C to < 7 with fasting glucose 100. Need to see eye dr. each year for dilated eye exam. Increase activity level to get exercise most days of the week. Work on eating more fresh fruit, veggies and lean protein and less packaged foods. Cut back on the fatty foods, add fish oil or omega three fatty acids; red yeast rice may also help. Drink more water! Low salt diet. Take all medications as prescribed. Keep appointments with PCP and all specialists. Not available 02/14/2021 16:06:12 f/u 6 months DWP barriers to care: none Not available 02/14/2021 16:09:17 Reason for Referral Neurologist Referral for Aty pical absence seizure Referring Physician: [facility], Encounter Date: 01/26/2020 [facility] Att[facility] Referral for Dysphagia Please call pt to schedule appointment, Thank you Referring Physician: [facility], Encounter Date: 02/14/2021 Results Created Date Observation Date Name Description Value Unit Range Abnormal Flag Note LastModifiedBy Organization Detail LastModifiedTime 10/04/20 20 10/06/2020 CMP, serum or plasm a glucose 185 mg/dL 65-99 above high normal Not Available [facility] ([facility]) [address] [facility], [place], [address], 10/10/2020 17:10:17 10/04/20 20 10/06/2020 CMP, serum or plasm a BUN 22 mg/dL 6-24 Not Available [facility] ([facility]) [address] [place], [address], 10/10/2020 17:10:17 10/04/20 20 10/06/2020 CMP, serum or plasm a creatinine 0.69 mg/dL 0.57-1 .00 Not Available [facility] ([facility]) [address] [facility], [place], [address], 10/10/2020 17:10:17 10/04/2010/06/2020 CMP, serum or plasm a eGFR if nonafricn AM 103 mL/mi n/1.7 3 >59 Not Available [facility] ([facility]) [address] [facility], [place], [address], 10/10/2020 17:10:17 10/04/2010/06/2020 CMP, serum or plasm a eGFR if africn AM 118 mL/mi n/1.7 3 >59 Not Available [facility] ([facility]) [address] [facility], [place], [address], 10/10/2020 17:10:17 10/04/2010/06/2020 CMP, serum or plasm a BUN/creatini ne ratio 32 9-23 above high normal Not Available [facility] ([facility]) [address] [place], [address], 10/10/2020 17:10:17 10/04/2010/06/2020 CMP, serum or plasm a sodium 141 mmol/ L 134-14 4 Not Available [facility] ([facility]) [address] [place], [address], 10/10/2020 17:10:17 10/04/20 20 10/06/2020 CMP, serum or plasm a potassium 4.3 mmol/ L 3.5-5. 2 Not Available [facility] ([facility]) [address] [place], [address], 10/10/2020 17:10:17 10/04/2010/06/2020 CMP, serum or plasm a chloride 107 mmol/ L 96-106 above high normal Not Available [facility] ([facility]) [address] [place], [address], 10/10/2020 17:10:17 10/04/2010/06/2020 CMP, serum or plasm a carbon dioxide, total 23 mmol/ L 20-29 Not Available [facility] ([facility]) [address] [place], [address], 10/10/2020 17:10:17 10/04/2010/06/2020 CMP, serum or plasm a calcium 10.1 mg/dL 8.7-10 .2 Not Available [facility] ([facility]) [address] [place], [address], 10/10/2020 17:10:17 10/04/2010/06/2020 CMP, serum or plasm a protein, total 7.1 g/dL 6.0-8. 5 Not Available [facility] ([facility]) [address] [place], [address], 10/10/2020 17:10:17 10/04/2010/06/2020 CMP, serum or plasm a albumin 4.6 g/dL 3.8-4. 8 Not Available [facility] ([facility]) [address] [place], [address], 10/10/2020 17:10:17 10/04/2010/06/2020 CMP, serum or plasm a globulin, total 2.5 g/dL 1.5-4. 5 Not Available [facility] ([facility]) [address] [place], [address], 10/10/2020 17:10:17 10/04/2010/06/2020 CMP, serum or plasm a A/G ratio 1.8 1.2-2. 2 Not Available [facility] ([facility]) [address] [facility], [place], [address], 10/10/2020 17:10:17 10/04/20 20 10/06/2020 CMP, serum or plasm a bilirubin, total <0.2 mg/dL 0.0-1. 2 Not Available [facility] ([facility]) [address] [facility], [place], [address], 10/10/2020 17:10:17 10/04/2010/06/2020 CMP, serum or plasm a alkaline phosphatase 73 IU/L 39-117 Not Available [facility]) [address] [facility], [place], [address], 10/10/2020 17:10:17 10/04/2010/06/2020 CMP, serum or plasm a AST (SGOT) 17 IU/L 0-40 Not Available [facility] ([facility]) [address] [facility], [place], [address], 10/10/2020 17:10:17 10/04/2010/06/2020 CMP, serum or plasm a ALT (SGPT) 19 IU/L 0-32 Not Available [facility] ([facility]) [address] [facility], [place], [address], 10/10/2020 17:10:17 10/04/2010/06/2020 CBC WBC 8.1 x10e3 /uL 3.4-10 .8 Not Available [facility] ([facility]) [address] [place], [address], 10/10/2020 17:10:18 10/04/20 20 10/06/2020 CBC RBC 4.32 x10e6 /uL 3.77-5 .28 Not Available [facility] ([facility]) [address] [place], [address], 10/10/2020 17:10:18 10/04/20 20 10/06/2020 CBC hemoglobin 11.7 g/dL 11.1-1 5.9 Not Available [facility] ([facility]) [address] [facility], [place], [address], 10/10/2020 17:10:18 10/04/20 20 10/06/2020 CBC hematocrit 35.4 % 34.0-4 6.6 Not Available [facility] ([facility]) [address] [place], [address], 10/10/2020 17:10:18 10/04/2010/06/2020 CBC MCV 82 fL 79-97 Not Available [facility] ([facility]) [address] [place], [address], 10/10/2020 17:10:18 10/04/20 20 10/06/2020 CBC MCH 27.1 pg 26.6-3 3.0 Not Available [facility] ([facility]) [address] [place], [address], 10/10/2020 17:10:18 10/04/20 20 10/06/2020 CBC MCHC 33.1 g/dL 31.5-3 5.7 Not Available [facility] ([facility]) [address] [place], [address], 10/10/2020 17:10:18 10/04/20 20 10/06/2020 CBC RDW 13.3 % 11.7-1 5.4 Not Available [facility] ([facility]) [address] [place], [address], 10/10/2020 17:10:18 10/04/20 20 10/06/2020 CBC platelets 345 x10e3 /uL 150-45 0 Not Available [facility] ([facility]) [address], [place], [address], 10/10/2020 17:10:18 10/04/20 20 10/06/2020 CBC NRBC FOREMAN/PROJECT MANAGER Not Available [facility] ([facility]) [address], [place], [address], 10/10/2020 17:10:18 10/04/20 20 10/06/2020 lipid panel , serum cholesterol, total 215 mg/dL 100-19 9 above high normal Not Available [facility] ([facility]) [address] [facility], [place], [address], 10/10/2020 17:10:19 10/04/2010/06/2020 lipid panel , serum triglyceride s 226 mg/dL 0-149 above high normal Not Available [facility] ([facility]) [address] [facility], [place], [address], 10/10/2020 17:10:19 10/04/20 20 10/06/2020 lipid panel , serum HDL cholesterol 50 mg/dL >39 Not Available [facility] ([facility]) [address] [facility], [place], [address], 10/10/2020 17:10:19 10/04/20 20 10/06/2020 lipid panel , serum VLDL cholesterol katelin 40 mg/dL 5-40 Not Available [facility] ([facility]) [address] [facility], [place], [address], 10/10/2020 17:10:19 10/04/20 20 10/06/2020 lipid panel , serum LDL chol calc ([facility]) 125 mg/dL 0-99 above high normal Not Available [facility] ([facility]) [address] [facility], [place], [address], 10/10/2020 17:10:19 10/04/20 20 10/06/2020 lipid panel , serum comment: FOREMAN/PROJECT MANAGER Not Available [facility] ([facility]) [address] [facility], [place], [address], 10/10/2020 17:10:19 10/04/20 20 10/10/2020 TSH, serum or plasm a TSH-icma 1.1 uu/mL Refer ence Range : Non-P regna nt Adult 0.450 -4.50 0 Pregn ynes First Trime ster 0.100 -4.00 0 Secon d Trime ster 0.200 -4.00 0 Third Trime ster 0.300 -4.50 0 Not Available [employer] [facility] [employer] [facility] [address] [place] [address], [address], 10/10/2020 17:10:20 10/04/20 20 10/06/2020 cardi ovasc ular asses sment panel , serum interpretati on Note Suppl trung vásquez is avail able. Not Available [facility] ([facility]) [address], [place], [address], 10/10/2020 17:10:20 10/04/20 20 10/06/2020 cardi ovasc ular asses sment panel , serum pdf . Not Available [facility] ([facility]) [address] [facility], [place], [address], 10/10/2020 17:10:20 10/04/20 20 10/04/2020 HbA1c (hemo globi n A1c), blood HbA1c 6.4 Not Available In-Office Order Internal Use Only DO Not Attach Compendium DO Not Attach Compendium, Do Not Delete/merge, [id number] 10/04/2020 15:53:02 12/22/19 21 12/23/2020 rosario c disea se compr ehens wendy panel , serum T-transgluta minase (ttg) IgA <2 U/mL 0-3 Negat wendy 0 - 3 Weak Posit wendy 4 - 10 Posit wendy >10 Tissu e Trans gluta megan e (tTG) has been ident ified as the endom ysial antig en. Studi es have demon str- ated that endom ysial IgA antib odies have over 99% speci ficit y for glute n sensi tive enter opath y. Not Available [facility] ([facility]) [address] [facility], [place], [address], 12/25/2020 16:10:29 12/22/19 21 12/23/2020 rosario c disea se compr ehens wendy panel , serum immunoglobul in A, qn, serum 239 mg/dL 87-352 Not Available [facility] ([facility]) [address] [facility], [place], [address], 12/25/2020 16:10:29 12/22/19 21 12/25/2020 rosario c disea se compr ehens wendy panel , serum endomysial antibody IgA Negati ve negati ve Not Available [facility] ([facility]) [address] [facility], [place], [address], 12/25/2020 16:10:29 12/22/19 21 12/23/2020 TSH + free T4, serum TSH 1.280 uIU/m L 0.450- 4.500 Not Available [facility] ([facility]) [address] [facility], [place], [address], 12/25/2020 16:10:30 12/22/19 21 12/23/2020 TSH + free T4, serum T4,free(dire ct) 1.42 NG/dL 0.82-1 .77 Not Available [facility] ([facility]) [address] [facility], [place], [address], 12/25/2020 16:10:30 12/22/19 21 12/23/2020 CBC w/ auto diff WBC 9.3 x10e3 /uL 3.4-10 .8 Not Available [facility] ([facility]) [address] [facility], [place], [address], 12/25/2020 16:10:30 12/22/19 21 12/23/2020 CBC w/ auto diff RBC 4.80 x10e6 /uL 3.77-5 .28 Not Available [facility] ([facility]) [address] [facility], [place], [address], 12/25/2020 16:10:30 12/22/19 21 12/23/2020 CBC w/ auto diff hemoglobin 13.3 g/dL 11.1-1 5.9 Not Available [facility] ([facility]) [address] [facility], [place], [address], 12/25/2020 16:10:30 12/22/19 21 12/23/2020 CBC w/ auto diff hematocrit 40.3 % 34.0-4 6.6 Not Available [facility] ([facility]) [address] [facility], [place], [address], 12/25/2020 16:10:30 12/22/19 21 12/23/2020 CBC w/ auto diff MCV 84 fL 79-97 Not Available [facility] ([facility]) [address] [facility], [place], [address], 12/25/2020 16:10:30 12/22/19 21 12/23/2020 CBC w/ auto diff MCH 27.7 pg 26.6-3 3.0 Not Available [facility] ([facility]) [address] [facility], [place], [address], 12/25/2020 16:10:30 12/22/19 21 12/23/2020 CBC w/ auto diff MCHC 33.0 g/dL 31.5-3 5.7 Not Available [facility] ([facility]) [address] [facility], [place], [address], 12/25/2020 16:10:30 12/22/19 21 12/23/2020 CBC w/ auto diff RDW 13.3 % 11.7-1 5.4 Not Available [facility] ([facility]) [address] [place], [address], 12/25/2020 16:10:30 12/22/19 21 12/23/2020 CBC w/ auto diff platelets 418 x10e3 /uL 150-45 0 Not Available [facility] ([facility]) [address] [facility], [place], [address], 12/25/2020 16:10:30 12/22/19 21 12/23/2020 CBC w/ auto diff neutrophils 58 % not estab. Not Available [facility] ([facility]) [address] [facility], [place], [address], 12/25/2020 16:10:30 12/22/19 21 12/23/2020 CBC w/ auto diff lymphs 32 % not estab. Not Available [facility] ([facility]) [address] [facility], [place], [address], 12/25/2020 16:10:30 12/22/19 21 12/23/2020 CBC w/ auto diff monocytes 7 % not estab. Not Available [facility] ([facility]) [address] [facility], [place], [address], 12/25/2020 16:10:30 12/22/19 21 12/23/2020 CBC w/ auto diff eos 2 % not estab. Not Available [facility] ([facility]) [address] [facility], [place], [address], 12/25/2020 16:10:30 12/22/19 21 12/23/2020 CBC w/ auto diff basos 0 % not estab. Not Available [facility] ([facility]) [address] [facility], [place], [address], 12/25/2020 16:10:30 12/22/19 21 12/23/2020 CBC w/ auto diff immature cells FOREMAN/PROJECT MANAGER Not Available [facility] ([facility]) [address] [facility], [place], [address], 12/25/2020 16:10:30 12/22/19 21 12/23/2020 CBC w/ auto diff neutrophils (absolute) 5.3 x10e3 /uL 1.4-7. 0 Not Available [facility] ([facility]) [address] [place], [address], 12/25/2020 16:10:30 12/22/19 21 12/23/2020 CBC w/ auto diff lymphs (absolute) 3.0 x10e3 /uL 0.7-3. 1 Not Available [facility] ([facility]) [address] [place], [address], 12/25/2020 16:10:30 12/22/19 21 12/23/2020 CBC w/ auto diff monocytes(ab solute) 0.7 x10e3 /uL 0.1-0. 9 Not Available [facility] ([facility]) [address] [place], [address], 12/25/2020 16:10:30 12/22/19 21 12/23/2020 CBC w/ auto diff eos (absolute) 0.2 x10e3 /uL 0.0-0. 4 Not Available [facility] ([facility]) [address] [place], [address], 12/25/2020 16:10:30 12/22/19 21 12/23/2020 CBC w/ auto diff baso (absolute) 0.0 x10e3 /uL 0.0-0. 2 Not Available [facility] ([facility]) [address] [place], [address], 12/25/2020 16:10:30 12/22/19 21 12/23/2020 CBC w/ auto diff immature granulocytes 1 % not estab. Not Available [facility] ([facility]) [address] [place], [address], 12/25/2020 16:10:30 12/22/19 21 12/23/2020 CBC w/ auto diff immature grans (abs) 0.1 x10e3 /uL 0.0-0. 1 Not Available [facility] ([facility]) [address] [place], [address], 12/25/2020 16:10:30 12/22/19 21 12/23/2020 CBC w/ auto diff NRBC FOREMAN/PROJECT MANAGER Not Available [facility] ([facility]) [address] [place], [address], 12/25/2020 16:10:30 12/22/19 21 12/23/2020 CBC w/ auto diff hematology comments: FOREMAN/PROJECT MANAGER Not Available [facility] ([facility]) [address] [place], [address], 12/25/2020 16:10:30 12/22/19 21 12/23/2020 CMP, serum or plasm a glucose 102 mg/dL 65-99 above high normal Not Available [facility] ([facility]) [address] [place], [address], 12/25/2020 16:10:31 12/22/19 21 12/23/2020 CMP, serum or plasm a BUN 18 mg/dL 6-24 Not Available [facility] ([facility]) [address] [place], [address], 12/25/2020 16:10:31 12/22/19 21 12/23/2020 CMP, serum or plasm a creatinine 0.85 mg/dL 0.57-1 .00 Not Available [facility] ([facility]) [address] [place], [address], 12/25/2020 16:10:31 12/22/19 21 12/23/2020 CMP, serum or plasm a eGFR if nonafricn AM 81 mL/mi n/1.7 3 >59 Not Available [facility] ([facility]) [address] [place], [address], 12/25/2020 16:10:31 12/22/19 21 12/23/2020 CMP, serum or plasm a eGFR if africn AM 93 mL/mi n/1.7 3 >59 Not Available [facility] ([facility]) [address] [place], [address], 12/25/2020 16:10:31 12/22/19 21 12/23/2020 CMP, serum or plasm a BUN/creatini ne ratio 21 9-23 Not Available [facility] ([facility]) [address] [place], [address], 12/25/2020 16:10:31 12/22/19 21 12/23/2020 CMP, serum or plasm a sodium 143 mmol/ L 134-14 4 Not Available [facility] ([facility]) [address] [place], [address], 12/25/2020 16:10:31 12/22/19 21 12/23/2020 CMP, serum or plasm a potassium 4.4 mmol/ L 3.5-5. 2 Not Available [facility] ([facility]) [address] [place], [address], 12/25/2020 16:10:31 12/22/19 21 12/23/2020 CMP, serum or plasm a chloride 104 mmol/ L 96-106 Not Available [facility] ([facility]) [address] [place], [address], 12/25/2020 16:10:31 12/22/19 21 12/23/2020 CMP, serum or plasm a carbon dioxide, total 23 mmol/ L 20- Not Available [facility] ([facility]) [address] [place], [address], 12/25/2020 16:10:31 12/22/19 21 12/23/2020 CMP, serum or plasm a calcium 11.0 mg/dL 8.7-10 .2 above high normal Not Available [facility] ([facility] [address] [facility] [place], [address], 12/25/2020 16:10:31 12/22/19 21 12/23/2020 CMP, serum or plasm a protein, total 7.7 g/dL 6.0-8. 5 Not Available [facility] ([facility] [address] [place], [address], 12/25/2020 16:10:31 12/22/19 21 12/23/2020 CMP, serum or plasm a albumin 5.1 g/dL 3.8-4. 8 above high normal Not Available [facility] ([facility] [address] [place], [address], 12/25/2020 16:10:31 12/22/19 21 12/23/2020 CMP, serum or plasm a globulin, total 2.6 g/dL 1.5-4. 5 Not Available [facility] ([facility]) [address] [place], [address], 12/25/2020 16:10:31 12/22/1912/23/2020 CMP, serum or plasm a A/G ratio 2.0 1.2-2. 2 Not Available [facility] ([facility]) [address] [place], [address], 12/25/2020 16:10:31 12/22/1912/23/2020 CMP, serum or plasm a bilirubin, total <0.2 mg/dL 0.0-1. 2 Not Available [facility] ([facility]) [address] [place], [address], 12/25/2020 16:10:31 12/22/19 21 12/23/2020 CMP, serum or plasm a alkaline phosphatase 85 IU/L 39-117 Not Available [facility] [address] [place], [address], 12/25/2020 16:10:31 12/22/19 21 12/23/2020 CMP, serum or plasm a AST (SGOT) 24 IU/L 0-40 Not Available [facility] ([facility]) [address] [place], [address], 12/25/2020 16:10:31 12/22/19 21 12/23/2020 CMP, serum or plasm a ALT (SGPT) 25 IU/L 0-32 Not Available [facility] ([facility]) [address] [facility], [place], [address], 12/25/2020 16:10:31 12/22/19 21 12/23/2020 amyla se + lipas e, serum amylase 55 U/L 31-110 Not Available [facility] ([facility]) [address] [place], [address], 12/25/2020 16:10:32 12/22/19 21 12/23/2020 amyla se + lipas e, serum lipase 46 U/L 14-72 Not Available [facility] ([facility] [facility]) [address] [place], [address], 12/25/2020 16:10:32 12/22/19 21 12/23/2020 HbA1c (hemo globi n A1c), blood hemoglobin A1C 6.9 % 4.8-5. 6 above high normal Predi abete s: 5.7 - 6.4 Diabe nga: >6.4 Glyce roni contr ol for adult s with diabe nga: <7.0 Not Available [facility] ([facility]) [address] [place], [address], 12/25/2020 16:10:33 12/22/19 21 12/23/2020 vitam in D, 25-hy droxy , total , serum vitamin D, 25-hydroxy 32.7 NG/mL 30.0-1 00.0 Vitam in D defic iency has been defin ed by the Insti tute of Medic ine and an Endoc rine Socie ty pract ice guide line as a level of serum 25-OH vitam in D less than 20 ng/mL (1,2) . The Endoc rine Socie ty went on to furth er defin e vitam in D insuf ficie ncy as a level betwe en 21 and 29 ng/mL (2). 1. IOM (Inst itute of Medic ine). 2010. Dieta ry refer halimae lia es for calci um and D. Madisyn rushing [place]: The [facility] Press . 2. Sonya gillette MF, Irish pedersen [place], [employer] off[facility]F errar i ANGELA, et al. Evalu ation , treat ment, and preve ntion of vitam in D defic iency : an Endoc rine Socie ty clini katelin pract ice guide line. JCEM. 2010; 96(7) :1911 -30. Not Available [facility] ([facility]) [address] [place], [address], 12/25/2020 16:10:33 12/22/19 21 12/23/2020 micro album in, urine albumin, urine 8.1 ug/mL not estab. Not Available [facility] ([facility]) [address] [facility], [place], [address], 12/25/2020 16:10:34 12/22/19 21 12/22/2020 food aller gen panel , serum class description Commen t Level s of Speci fic IgE Class Descr iptio n of Class ----- ----- ----- ----- ----- -- ----- ----- ----- ----- ----- < 0.10 0 Negat wendy 0.10 - 0.31 0/I Equiv ocal/ Low 0.32 - 0.55 I Low 0.56 - 1.40 II Moder ate 1.41 - 3.90 III High 3.91 - 19.00 IV Very High 19.01 - 100.0 0 V Very High >100. 00 Very High Not Available [facility] ([facility]) [address] [place], [address], 12/25/2020 16:10:35 12/22/19 21 12/25/2020 food aller gen panel , serum C736-OeN egg white <0.10 kU/L class 0 Not Available [facility] ([facility]) [address] [place], [address], 12/25/2020 16:10:35 12/22/19 21 12/25/2020 food aller gen panel , serum T820-RhV peanut <0.10 kU/L class 0 Not Available [facility] ([facility]) [address] [place], [address], 12/25/2020 16:10:35 12/22/19 21 12/25/2020 food aller gen panel , serum R043-VkX soybean <0.10 kU/L class 0 Not Available [facility] ([facility]) [address] [place], [address], 12/25/2020 16:10:35 12/22/19 21 12/25/2020 food aller gen panel , serum T962-QiU milk <0.10 kU/L class 0 Not Available [facility] ([facility]) [address] [place], [address], 12/25/2020 16:10:35 12/22/19 21 12/25/2020 food aller gen panel , serum C952-OzT clam <0.10 kU/L class 0 Not Available [facility] ([facility]) [address] [place], [address], 12/25/2020 16:10:35 12/22/19 21 12/25/2020 food aller gen panel , serum P528-LrL shrimp <0.10 kU/L class 0 Not Available [facility] ([facility]) [address] [place], [address], 12/25/2020 16:10:35 12/22/19 21 12/25/2020 food aller gen panel , serum O815-PiD walnut <0.10 kU/L class 0 Not Available [facility] ([facility]) [address] [facility], [place], [address], 12/25/2020 16:10:35 12/22/19 21 12/25/2020 food aller gen panel , serum F411-BvY codfish <0.10 kU/L class 0 Not Available [facility] ([facility]) [address] [place], [address], 12/25/2020 16:10:35 12/22/19 21 12/25/2020 food aller gen panel , serum C317-RpF scallop <0.10 kU/L class 0 Not Available [facility] ([facility]) [address] [place], [address], 12/25/2020 16:10:35 12/22/19 21 12/25/2020 food aller gen panel , serum Q896-QxB wheat <0.10 kU/L class 0 Not Available [facility] ([facility]) [address] [place], [address], 12/25/2020 16:10:35 12/22/19 21 12/25/2020 food aller gen panel , serum D345-JxX corn <0.10 kU/L class 0 Not Available [facility] ([facility]) [address] [place], [address], 12/25/2020 16:10:35 12/22/19 21 12/25/2020 food aller gen panel , serum L318-UwI sesame seed <0.10 kU/L class 0 Not Available [facility] ([facility]) [address] [place], [address], 12/25/2020 16:10:35 12/21/19 21 12/21/2020 XR, knee, 3 view No observ ation record ed. JAZZY [facility] [address], [place], [address], 12/21/2020 18:05:00 12/21/19 21 12/21/2020 US, abdom en No observ ation record ed. JAZZY Not Available 2020 18:05:00 Result Notes None recorded. 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 Ruddy Agarwal PA-C Attn: uSzanne bautista,[address] [facility], [place], [address], [place] - [facility] 8 16:18:45 Abdominal bloating 072013341 Active 2020 Hoa Robles APN, YOLA Attn: Delilahramses bautista,[address] [facility], [place], [address], [place] [facility] 1 14:39:41 Hyperglycem ia 50153653 Active 2020 Hoa Robles APN, YOLA Attn: Delilahramses bautista,[address] [facility], [place], [address], [place] [facility] 1 14:39:42 Dysphagia 49797507 Active 2020 Hoa Robles APN, YOLA Attn: Delilahramses bautista,[address] [facility], [place], [address], [place] [facility] 1 16:05:16 Migraine 08347770 Active Lena Torres [place], [place] [facility] 6 14:24:34 Hyperlipide maxwell 71477184 Active Lena Torres [place], [place] [facility] 6 14:24:34 Diabetes mellitus 62392446 Completed 06/25/2019 Ruddy Agarwal PA-C Attn: Delilahramses bautista,[address] [facility], [place], [address], [place] [facility] 9 12:23:14 Bacterial vaginosis 110925887 Completed 12/15/2020 Hoa Robles APN, [employer] Attn: Accountin g,[address] [facility], [place], [address], [facility] - [facility] 1 14:38:07 Localized abdominal pain 377490428 Active Lena Torres [place], [place] [facility] 6 14:24:34 Calculus of gallbladder with cholecystit is 92157437 Active Ruddy Agarwal PA-C Attn: Accountin g,[address] [facility], [place], [address], [facility] - [facility] 6 14:47:10 Urinary incontinenc e 362033992 Active Ruddy Agarwal PA-C Attn: Accountramses g,[address] [facility], [place], [address], [facility] - [facility] 6 14:47:10 Problem Notes None recorded. Procedures Surgical History Date Name Laterality Status Provider Name and Address Organization Details Recorded Time 11/24/19 Date of Last Pap Smear completed Asya Ely [place] 12/15/2020 13:50:49 08/17/20 02 Caesarean Section completed Marlen Pretty [place] [facility] 05/12/2017 16:52:41 03/20/19 95 Caesarean Section completed Marlen Pretty [place] [facility] 05/12/2017 16:52:33 11/24/18 94 eye reconstruction completed Marlen Pretty [place] 10/27/2018 15:44:22 Imaging Results Imaging Date Name Status LastModified by Organiz ation Details LastModified Time 12/21/2020 XR, knee, 3 view completed [address] [place], [address], 12/21/2020 18:05:00 12/21/2020 US, abdomen completed [place] Information n ot available 12/21/2020 18:05:00 Procedure Notes None recorded. Medical Equipment None Reported. Allergies Allergen ID Allergen Name Allergen Category Reaction Reaction Severity Criticality Documentation Date Start Date Code Code System Note Provider Name and Address Organization Details Recorded Time 787258 metformin medicatio n diarrhea mild Not available 02/14/2021 8499 RxNorm Hoa Robles APN, [employer] Attn: Suzanne lily,[address], [place], [address], [facility] - [facility] 15:59:11 Medications Name Sig Start Date Stop Date Status Note LastModified by Organization Details LastModified Time multivitami n tablet TK 1 T PO QD active Not Available Not Available No t Available metformin 500 mg tablet TAKE 1 TABLET BY MOUTH EVERY DAY 02/14 completed 02/14 -pt d/c Not Available Not Available Not Available alprazolam 1 mg tablet Take 1 tablet 3 times a day by oral route as needed for 5 days. 12/15 completed Not Available Not Available Not Available fluconazole 150 mg tablet TAKE 1 TABLET BY MOUTH ONCE DIRECTED 12/15 completed Not Available Not Available Not Available tolterodine ER 4 mg capsule,ext ended release 24 hr Take 1 capsule every day by oral route for 90 days. 05/12 completed Not Available Not Available Not Available hydrocodone 5 mg-acetamin ophen 325 mg tablet 05/12 completed Not Available Not Available Not Available medroxyprog esterone 5 mg tablet TAKE 1 TABLET BY MOUTH ONCE DAILY 10/27 completed Not Available Not Available Not Available acyclovir 400 mg tablet active Not Available Not Available Not Available ciprofloxac in 500 mg tablet Take 1 tablet every 12 hours by oral route for 10 days. 06/25 completed Not Available Not Available Not Available tramadol 50 mg tablet TAKE 1 TABLET BY MOUTH THREE TIMES DAILY NEEDED active Not Available Not Available No t Available norethindro ne acetate 1 mg-ethinyl estradiol 5 mcg tablet TAKE 1 TABLET BY MOUTH EVERY DAY 12/15 completed Not Available Not Available Not Available amoxicillin 875 mg tablet active Not Available Not Available Not Available estradiol 1 mg tablet TAKE 1 TABLET BY MOUTH EVERY DAY 10/27 completed Not Available Not Available Not Available Flagyl 500 mg tablet Take 1 tablet twice a day by oral route. 05/12 completed Not Available Not Available Not Available oxybutynin chloride ER 5 mg tablet,exte nded release 24 hr 01/02 completed Not Available Not Available Not Available Microlet Lancet 10/27 completed Not Available Not Available Not Available escitalopra m 10 mg tablet Take 1 tablet every day by oral route for 90 days. 12/15 completed Not Available Not Available Not Available Calcium 600 + D(3) 600 mg-5 mcg (200 unit) tablet TAKE 1 TABLET BY MOUTH TWICE DAILY 06/25 completed Not Available Not Available Not Available fenofibrate 160 mg tablet TAKE 1 TABLET BY MOUTH EVERY DAYPT NEEDS TO CALL OFFICE AND SCHEDULE APPT BRAXTON active Not Available Not Available No t Available Januvia 100 mg tablet Take 1 tablet every day by oral route for 90 days. 05/12 completed Not Available Not Available Not Available Calcium with Vitamin D 600 mg-10 mcg (400 unit) tablet Take 1 tablet twice a day by oral route. 06/25 completed Not Available Not Available Not Available Probiotic 06/25 completed Not Available Not Available Not Available Tradjenta 5 mg tablet TAKE 1 TABLET BY MOUTH EVERY DAY 10/27 completed Not Available Not Available Not Available Contour Next Test Strips TEST TWICE DAILY 10/27 completed Not Available Not Available Not Available Myrbetriq 50 mg tablet,exte nded release 1 po qd 05/12 completed Not Available Not Available Not Available alogliptin 25 mg tablet TAKE 1 TABLET BY MOUTH DAILY 10/27 completed Not Available Not Available Not Available Slynd 4 mg (28) tablet active Not Available Not Available Not Available Vitals Date Recorded Body height Body mass index (BMI) Body weight Oxygen saturation Oxygen saturation in Arterial blood by Pulse oximetry Heart rate Systolic blood pressure Diastolic blood pressure Provider Name and Address Organization Details Last Updated DateTime 0 152.4 cm 23.5 kg/m2 49026.1 8 g 99 % 99 % 73 /min 122 mm[Hg] 82 mm[Hg] Lena Torres MA [place] - [facility] 0 17:00:13 Date Recorded Body height Body mass index (BMI) Body weight Body temperature Oxygen saturation Oxygen saturation in Arterial blood by Pulse oximetry Heart rate Systolic blood pressure Diastolic blood pressure Provider Name and Address Organization Details Last Updated DateTime 0 152.4 cm 26 kg/m2 54628.8 9 g 97.4 [degF] 98 % 98 % 82 /min 124 mm[Hg] 82 mm[Hg] Asya Ely MA [facility] 0 15:01:13 Date Recorded Body height Provider Name an d Address Organization Details Last Updated DateTime 01/09/2021 152.4 cm Marlen Pretty MA [facility] 01/09 14:52:30 Date Recorded Body height Body temperature Heart rate Oxygen saturation Oxygen saturation in Arterial blood by Pulse oximetry Respiratory rate Body mass index (BMI) Body weight Systolic blood pressure Diastolic blood pressure Provider Name and Address Organization Details Last Updated DateTime 1 152.4 cm 97.2 [degF] 84 /min 98 % 98 % 16 /min 28 kg/m2 16496.4 1 g 132 mm[Hg] 88 mm[Hg] Nadiya Morrow MA [facility] 1 14:45:20 Date Recorded Body height Body mass index (BMI) Body weight Oxygen saturation Oxygen saturation in Arterial blood by Pulse oximetry Heart rate Respiratory rate Body temperature Systolic blood pressure Diastolic blood pressure Provider Name and Address Organization Details Last Updated DateTime 1 152.4 cm 28.2 kg/m2 29681.4 g 98 % 98 % 111 /min 16 /min 97.3 [degF] 124 mm[Hg] 82 mm[Hg] Nadiya Morrow MA [facility] 1 15:46:11 Social History Question Answer Notes LastModified by Organizat ion Details LastModified Time Tobacco Smoking Status Former Smoker Ariadne Jacobson MA [facility], [facility] 07/07/2015 16:56:36 Do You Have An Advance Directive? No Pt Don't Know [email or web address] Information not available 05/12/2017 What Is Your Level Of Alcohol Consumption? None Information not available 01/22/2016 Are You Blind Or Do You Have Difficulty Seeing? No Information not available 01/18/2021 Is Blood Transfusion Acceptable In An Emergency? Yes Information not available 01/22/2016 What Is Your Level Of Caffeine Consumption? Occasional Information not available 02/14/2021 How Much Tobacco Do You Chew? None Information not available 01/22/2016 In The 14 Days Before Symptom Onset, Have You Had Close Contact With A Laboratory-confir med COVID-19 While That Case Was Ill? No Information not available 01/18/2021 In The 14 Days Before Symptom Onset, Have You Had Close Contact With A Person Who Is Under Investigation For COVID-19 While That Person Was Ill? No Information not available 01/18/2021 Have You Been To An Area Known To Be High Risk For COVID-19? No Information not available 01/18/2021 Are You Currently Employed? No Information not available 01/22/2016 Are You Deaf Or Do You Have Serious Difficulty Hearing? No Information not available 01/18/2021 What Type Of Diet Are You Following? REGULAR Limit Carbs [email or web address] Information not available 05/12/2017 Which Illicit Or Recreational Drugs Have You Used? None Information not available 01/22/2016 Do You Or Have You Ever Used E-cigarettes Or Vape? Current User Of Electronic Cigarettes Information not available 10/04/2020 Education 2 Year College Informatio n not available 01/22/2016 What Is Your Occupation? [employer] Person Information not available 01/22/2016 Are There Any Guns Present In Your Home? No Information not available 01/18/2021 Live Alone Or With Others? With Others Information not available 01/22/2016 What Was The Date Of Your Most Recent Tobacco Screening? 02/14/2021 Information not available 02/14/2021 How Many Children Do You Have? 2 Information not available 01/22/2016 Performs Monthly Self-breast Exam? Yes [email or web address] Information no t available 05/12/2017 Do You Use Protection During Sex? No Information not available 01/22/2016 What Is Your Relationship Status? Information not available 01/22/2016 Do You Use Your Seat Belt Or Car Seat Routinely? Yes Information not available 01/18/2021 Seat Belts Used Routinely Yes Information not available 01/22/2016 Are You Sexually Active? Yes Information not available 01/22/2016 Do You Have Smoke And Carbon Monoxide Detectors In Your Home? Yes Information not available 01/18/2021 At What Age Did You Start Smoking Tobacco? 14 Information not available 01/22/2016 Are You Passively Exposed To Smoke? No Information no t available 01/18/2021 Do You Or Have You Ever Used Smokeless Tobacco? Never Used Smokeless Tobacco Information not available 10/04/2020 How Much Tobacco Do You Smoke? 2 PPD Information not available 01/22/2016 General Stress Level Low Information not available 01/22/2016 Do You Feel Stressed (tense, Restless, Nervous, Or Anxious, Or Unable To Sleep At Night)? [id number] Information not available 01/18/2021 Do You Use Any Illicit Or Recreational Drugs? No Information not available 01/18/2021 Do You Use Sunscreen Routinely? No Information not available 01/22/2016 On What Date Was Tobacco Cessation Counseling Provided? 12/15/2020 Information not available 12/15/2020 How Many Years Have You Smoked Tobacco? 30 Information not available 01/22/2016 Do You Or Have You Ever Used Any Other Forms Of Tobacco Or Nicotine? No Information not available 01/18/2021 Sex: Female Functional Status Question Answer Note LastModified by Organizat ion Details LastModified Time Are you able to care for yourself? Yes Information not available 01/18/2021 What is your exercise level? Occasional Information not available 01/22/2016 Mental Status None recorded. Family History Relationship Description Onset Age of this Age Resolved Age Notes LastModified by Organization Details LastModified Time Mother Migraine [email or web address] Not availa ble 08/12/2016 14:24:34 Father Hypertensive disorder [email or web address] Not available 07/25 14:24:34 Father Hyperlipidem ia [email or web address] Not available 07/25 14:24:34 Unspecified Relation Diabetes mellitus female s mother s side of family [email or web address] Not available 05/12/2017 16:50:36 Maternal Grandmother Malignant tumor of breast [email or web address] Not available 05/12 16:50:57 Medical History Condition Response Other Y High Blood Pressure N Breast Cancer N Lung Disease N Depression N Blood Clots N Breast Problem N Anesthesia Complications N Headaches/Migraines Y Anxiety Disorder N Muscle, Joint, or Bone Problems N Polyps N Infertility N Acid Reflux (GERD) N Cancer N Stroke N ADHD N Endometriosis N High Cholesterol N Liver Disease N Schizophrenia N Headaches Y Thyroid Problems N Kidney or Bladder Problems N GI Problems Y Acne N Skin Problems N Eating Disorder N Anemia N Heart Attack (DC) N Ovarian Cancer N Diabetes Y Blood Transfusions N Seizures/Epilepsy N Abuse/Domestic Violence N Asthma N Allergies N Substance Abuse N Hepatitis N Heart Disease N Pre-Eclampsia N Osteoporosis N Heart Failure N Gynecological History Statement/Question Response Abnormal Pap Y Date of Last Mammogram On BCP's at Conception? Y STIs/STDs Y HPV Vaccine N Age at Menarche 14 Current Control Method BCPs Age at First Child 25 Sexually Active? Y Menses Monthly No Date of Last Pap Smear 11/24/2018 Sexual Problems? N LMP Unknown Obstetrics History GPAL:G 2 P 2 0 0 2 Type Value Multiple Births 0 Full Term 2 Induced 0 Spontaneous 0 Premature 0 Living 2 Ectopics 0 Total 2 Immunizations Vaccine Type Date Status Note Provider Name and Address Organization Details Recorded Time Tdap 06/25/20 19 cancelled patient objection Not Available [facility] 12/11/2019 02:47:54 Influenza, split virus, quadrivalent, preservative 01/18/20 21 cancelled patient objection Hoa Robles APN, [employer] Attn: Accounting,[address] [place], [address], [facility] 01/18/2021 15:09:41 Past Encounters Encounter ID Performer Location Encounter Start Date Encounter Closed Date Diagnosis/Indication Diagnosis SNOMED-CT Code Diagnosis ICD10 Code Diagnosis Note [id number] Neo Mark MD [facility] [address] [place] [address] 07/07/2015 16:46:53 07/07/2015 17:19:14 Migraine 70776724 [id number] MD Virginie Looney [facility] [address] [place] [address] 07/27/2015 13:15:34 07/27/2015 13:32:30 Hyperlipidemia 77425643 [id number] Neo Mark MD [facility] [address] [place] [address] 08/02/2015 15:36:07 08/02/2015 16:25:13 Migraine 86909054 Hyperlipidemia 88830358 Diabetes mellitus 42886163 [id number] Neo Mark MD [facility] [address] [place] [address] 08/30/2015 14:35:32 08/30/2015 15:26:37 Diabetes mellitus 88701429 E11.9 [id number] Neo Mark MD [facility] [address] [place] [address] 01/02/2016 14:33:12 01/02/2016 15:47:11 Diabetes mellitus 94553209 E11.9 [id number] Ricki Donnelly MD [facility] ([employer]) [address] [place] [address] 01/22/2016 14:48:37 01/23/2016 14:53:07 Gynecologic examination 38243898 Z01.419 Screening for malignant neoplasm of breast 504514581 Z12.39 Bacterial vaginosis 4197 86502 N76.0 Candidiasis 11478603 B37 .9 [id number] Ruddy Agarwal PA-C [facility] [address] [place] [address] 01/25/2016 18:29:23 01/26/2016 09:02:22 Diabetes mellitus 43582704 E11.9 [id number] Ruddy Agarwal PA-C [facility] [address] [place] [address] 07/02/2016 11:51:49 07/02/2016 12:44:20 Diabetes mellitus 55509414 E11.9 [id number] ANGEL Moya [facility] [address] [place] [address] 07/11/2016 14:41:38 07/11/2016 16:14:31 Diabetes mellitus 48321948 E11.9 Localized abdominal pain 394968477 R10.9 [id number] ANGEL Moya [facility] [address] [place] [address] 08/12/2016 14:18:32 08/12/2016 15:07:10 Calculus of gallbladder with cholecystitis 15306072 K80.10 Urinary incontinence 165 884840 R32 [id number] Ruddy Agarwal PA-C [facility] [address] [place] [address] 01/22/2017 14:22:21 01/22/2017 15:31:45 Diabetes mellitus 76403837 E11.9 [id number] MD Ramya Garcia ([employer]) [address] [place] [address] 05/12/2017 15:36:22 05/13/2017 16:56:57 Gynecologic examination 25872965 Z01.419 Z11.51 Screening mammography 24 223021 Z12.31 [id number] Neo Mark MD [facility] [address] [facility] [place] [address] 01/02/2018 15:38:36 01/02/2018 17:15:08 Migraine 98904894 G43.909 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 Diabetes mellitus 112779 09 E11.9 [id number] Neo Mark MD [facility] [address] [place] [address] 03/05/2018 11:36:42 03/05/2018 12:00:54 Rhabdomyosarcoma 500253370 C49.9 Hyperlipidemia 17974885 E78.2 Diabetes mellitus 462172 09 E11.9 [id number] Neo Mark MD [facility] [address] [place] [address] 07/31/2018 11:46:09 07/31/2018 13:04:38 Palpitations 88420176 R00.2 Mixed hyperlipidemia 267 625508 E78.2 [id number] Neo Mark MD [facility] [address] [place] [address] 08/04/2018 14:38:39 08/04/2018 15:23:38 Hypertriglyceridemia 469691528 E78.2 [id number] MD Ramya Garcia ([employer]) [address] [place] [address] 10/27/2018 14:54:48 10/27/2018 16:28:50 Gynecologic examination 57417557 Z01.419 Z11.51 Screening mammography 24 049937 Z12.31 Perimenopa usal disorder 916660169 N95.9 [id number] Ruddy Agarwal PA-C [facility] [address] [place] [address] 02/22/2019 17:05:34 02/23/2019 09:23:16 Hyperlipidemia 34408508 E78.2 Type 2 avelina betes mellitus 65830400 E11.9 Acute bron chitis with bronchospasm 31914880 J20.9 [id number] Ruddy Agarwal PA-C [facility] [address] [place] [address] 06/25/2019 11:51:50 06/28/2019 16:02:12 Administration of tetanus vaccine 285141548 Z23 Rhabdomyosarcoma 1463221 03 C49.0 Hyperlipidemia 14346989 E78.2 Menopausal syndrome 1237 91203 N95.8 [id number] Ruddy Agarwal PA-C [facility] [address] [place] [address] 08/04/2019 11:14:14 08/04/2019 13:53:16 Rhabdomyosarcoma 294023125 C49.0 Hyperlipidemia 10361895 E78.2 Transient cerebral ischemia 573050887 G45.8 Seasonal a ffective disorder 985956060 F33.9 [id number] Ruddy Agarwal PA-C [facility] [address] [place] [address] 01/26/2020 16:47:42 01/26/2020 17:31:31 Rhabdomyosarcoma 395461235 C49.0 Atypical a bsence seizure 14405403 G40.634 [id number] Neo Mark MD [facility] [address] [place] [address] 10/04/2020 14:55:31 10/04/2020 16:22:15 Abdominal pain 42838275 R10.13 Mixed hyperlipidemia 267 410412 E78.2 [id number] MD Zac Salcedo (Adult Med) [address] [place] [address] 12/15/2020 08:43:39 12/19/2020 10:09:06 Abdominal bloating [id number] R14.0 hx of intermitte nt constipati on, bloating pain in upper abdomen, also comes and goes, advised pt to start with labs and will get US, may still need referral, cont food diary Hyperglycemia [id number] R 73.9 hx of DM, last a1c was 6.4 but rex had 13 # weight gain over the past year Unintentio nal weight gain [id number] R63.5 check labs Pain in right knee [id number] 19371 M25.561 chronic pain to medial knee, dwp getting xray while at hospital, will send, plan pending results [id number] MD Zac Salcedo (Adult Med) [address] [place] [address] 01/18/2021 14:38:40 01/20/2021 10:37:40 Influenza vaccination declined [id number] Z28.21 Abdominal bloating 37380 9008 R14.0 hx of intermitte nt constipati on, bloating pain in upper abdomen, also comes and goes, cont food diary Hyperlipidemia [id number] E78.5 Hyperglycemia 95324510 R 73.9 hx of DM, last a1c was 6.4 now 6.9; [id number] MD Zac Salcedo (Adult Med) [address] [place] [address] 02/14/2021 15:39:43 02/15/2021 11:30:21 Hyperglycemia 72420120 R73.9 hx of DM, last a1c was 6.4 now 6.9; Abdominal bloating 86572 9008 R14.0 hx of intermitte nt constipati on, bloating pain in upper abdomen, also comes and goes, cont food diary Dysphagia [id number] R13.1 0 food getting stuck prior, now even liquids, dwp to refer to GI Health Concerns Section Related Observation LastModified by Organization Detai ls LastModified Time None Recorded Concern Status LastModified by Organization Details LastModified Time None Recorded Advance Directives Directive N: Pt don't know Payers Encounter Date Sequence Insurance Name Policy Number Policy Hernandez Covered Member ID Hernandez Member ID Guarantor Name 01/26/2020 1 [facility] PRIOR TO 05/24/2021 (MEDICAID REPLACEMENT - HMO) Le Chace [id number] Le Coltonkamimariaelena 10/04/2020 1 [facility] PRIOR TO 05/24/2021 (MEDICAID REPLACEMENT - HMO) Le Chace [id number] Le Joeyvenancioenemariaelena 12/15/2020 1 [facility] PRIOR TO 05/24/2021 (MEDICAID REPLACEMENT - HMO) Le Chace [id number] Le Joeyvenancioenemariaelena 01/18/2021 1 [facility] PRIOR TO 05/24/2021 (MEDICAID REPLACEMENT - HMO) Le Chace [id number] Le Coltonenemariaelena 02/14/2021 1 [facility] PRIOR TO 05/24/2021 (MEDICAID REPLACEMENT - HMO) Le Chace [id number] Le Cookvenanciokamimariaelena Notes Date Note Type Note Provider Name and Address Organization Details Recorded Time 01/26/2020 text/html 49 y/o female pr esents with intermittent episodes of staring off into space, hot flash, and sensation of impending doom x 2 years. Episodes occur 2-4 times per month and last for less than 1 minute when present. notes pt stares has had a few episodes of word salad. No noted post-ictal period. No noted seizure activity. Had normal EEG in August 2019. No numbness/tingling, weakness, vision loss/changes, dizziness....hx of rhabdomyosarcoma Lena Torres MA [facility], [place] - [place] 01/26/2020 17:46:39 10/04/2020 text/html Le Mas is a 50 y/o female with PMHx anxiety, DM who presents to clinic for check up and labs. She notes a 13 pound weight gain since her last visit 8 months ago. Patient states she was having some painful uncomfortable abdominal bloating that resolved 2-3 weeks ago. Pain was noticed especially after eating. She notes nocturia (3-4x/night), urinary frequency noted mitul. when sitting. She reports some intermittent constipation. Has been taking a probiotic which seems to help. Patient states that when she has a bowel movement, she feels that she doesn't pass all stool and feels residual stool in her rectum. Patient noted some proximal upper & lower extremity weakness that resolved 2-3 weeks ago. She reports at that time she had decreased energy. Patient would like a shingles vaccine today if possible. Ruddy Agarwal PA-C Attn: Accounting,[address] [facility], [place], [address], [facility] 10/04/2020 15:55:25 12/15/2020 text/html transfering from [place], current issue- started this past fall, she noticed she has gained some weight, took some go low for a month and decided that was not the issue, about a month later she felt like she was bloating from every thing, at top of her abdomen under her diaphragm, could feel her food in her throat. Once she paid attention and she thinks it took hours for her food to get down to her esophagus; she made an apt and saw Tae (she reports she has a medical background and knows more than him) and he told her IBS, she decided then she would not see him after that; bloating went away for a few months, now recently it has come back; last week the bloating and food not moving was there, but was also in pain, constant pain/ache lasting a week, now today she has no pain and only a small amount of bloating; has been keeping food diary as well; food getting stuck in her esophagus, no prior egd; was taking medication otc prior to this last flare up- she took one pill of prilosec and it made it worse; works in commercial cleaning at [employer], inside of right knee painful when she tries to uncross legs, no swelling, painful if she pushes on it, pain when going from bending to straightening it; has been going on for a long time; Hoa Robles APN, [employer] Attn: Accounting,[address] [facility], [place], [address], [facility] [place] 12/15/2020 14:43:12 01/18/2021 text/html Here for lab fol low up, concerned she is diabetic again, prior labs show she was and she does not want to go back on all those medications. pain is better but still has bloating in abdomen after she eats; tried probiotics which did not help, no correlation with diet either, meat is harder to digest, hunger 16/06; drinks coffee; Hoa Roblse APN, [employer] Attn: Accounting,[address] [place], [address], [facility] 01/18/2021 18:01:21 02/14/2021 text/html prior labs show she was and she does not want to go back on all those medications.tried metformin again ang was causing GI upset, stopped meds pain is better but still has bloating in abdomen after she eats; tried probiotics which did not help, no correlation with diet either, meat is harder to digest, hunger 16/06; drinks coffee; food getting stuck, no reflux pain, just bloating; Hoa Robles APN, FNP-C Attn: Accounting,[address] [facility], [place], [address], [facility] 02/14/2021 16:10:41 OBGyn Episode Ob Episode Information Episode Created Date Number of Fetuses Patient Bloodtype Patient rh Status Prepregnancy Weight lbs Domestic Partner Domestic Partner Phone Father Name Director Of Mechanical Engineering Status 01/22/20 16 1 CLOSED Fetus Data First Name Last Name Admitted to NICU Weight (g) Sex Living Outcome Pediatric Complications Fetus ID Race Codes Race Delivery Type F Full Term [id number] Eros Calculation Initial Eros Date Initial Exam [...] Complications Tubal Sterilization Discharge Date Comments 2 Regional-Ep idural 40 false [place] Discharge Information Feeding Method Contraceptive Method Maternal HG B and HCT Levels Ob Episode Information Episode Created Date Number of Fetuses Patient Bloodtype Patient rh Status Prepregnancy Weight lbs Domestic Partner Domestic Partner Phone Father Name Director Of Mechanical Engineering Status 01/22/20 16 1 CLOSED Fetus Data First Name Last Name Admitted to NICU Weight (g) Sex Living Outcome Pediatric Complications Fetus ID Race Codes Race Delivery Type 2608.15 4 F Full Term [id number] Eros Calculation Initial Eros Date Initial Exam [...] Complications Tubal Sterilization Discharge Date Comments 5 Regional-Ep idural 40 false [place] Discharge Information Feeding Method Contraceptive Method Maternal HG B and HCT Levels
== END 2025-03-25 09:50 | disposition home or self-care (01) ==
LOC: ANHIMG 09:51
PROVIDERS: PCP Nurse Practitioner Adult Health; Visit Provider Nurse Practitioner
DX: Z12.31 Encounter for screening mammogram for malignant neoplasm of breast (principal)
CPT/HCPCS: 77063; 77067